=== PATIENT | female | born 1965 | race African-American/Black ===

== ENCOUNTER 2016-12-17 10:45 | Emergency (ER) | payer OTHER ==
[2016-12-17 11:12] VITALS: RESP 18
[2016-12-17] MEDS ORDERED: KETOROLAC 60 MG/2 ML VIAL IM STA (11:19)
[2016-12-17] MEDS ORDERED: ORPHENADRINE 30 MG/ML 2 ML VIAL IM STA (11:19)
--- NOTE | 2016-12-17 11:24 | ED ---
Back Pain HPI - General Chief Complaint: Back Pain/Injury Stated Complaint: LEFT SIDE/BACK PAIN Time Seen by Provider: 12/17/16 11:13 Source: patient, RN notes reviewed Limitations: no limitations - History of Present Illness Initial Comments: 51-year-old female presents to the emergency department with a chief complaint of left-sided flank pain. Patient states she's had this pain to the left side of her back. She states she bends or twists certain ways she has increased pain. Patient states sitting still. She has no pain. Patient denies any pain with urination. Patient denies any abdominal pain any nausea vomiting. Patient states she does lifting at work she does not remember time that she irritated. Patient states it's been about 3 or 4 days. Patient states she was concerned due to the symptoms so she thought that she should be evaluated. Patient denies any recent fever, chills, shortness of breath, chest pain, abdominal pain, nausea vomiting, numbness or tingling, dysuria or hematuria, constipation or diarrhea, headaches or visual changes, or any other current symptoms. - Related Data Home Medications Medication Instructions Recorded Confirmed Lisinopril [Prinivil] 20 mg PO DAILY 12/17/16 12/17/16 Ranitidine HCl [Zantac] 150 mg PO BID 12/17/16 12/17/16 Previous Rx's Medication Instructions Recorded Ibuprofen [Motrin] 600 mg PO Q6HR PRN #20 tab 12/17/16 Orphenadrine [Norflex] 100 mg PO Q12H #10 tablet.er 12/17/16 Allergies Allergy/AdvReac Type Severity Reaction Status Date / Time hydrocodone Allergy Itching Verified 12/17/16 11:29 Review of Systems ROS Statement: Those systems with pertinent positive or pertinent negative responses have been documented in the HPI. ROS Other: All systems not noted in ROS Statement are negative. Past Medical History Past Medical History: GERD/Reflux, Hypertension Additional Past Medical History / Comment(s): ANEMIA, BACK PAIN History of Any Multi-Drug Resistant Organisms: None Reported Past Surgical History: Hysterectomy Past Anesthesia/Blood Transfusion Reactions: No Reported Reaction, Motion Sickness Past Psychological History: No Psychological Hx Reported Smoking Status: Never smoker Past Alcohol Use History: Rare Past Drug Use History: None Reported - Past Family History Mother Family Medical History: No Reported History General Exam - General Exam Comments Initial Comments: General: The patient is awake and alert, in no distress, and does not appear acutely ill. Eye: Pupils are equal, round and reactive to light, extra-ocular movements are intact; there is normal conjunctiva bilaterally. No signs of icterus. Ears, nose, mouth and throat: There are moist mucous membranes. Neck: The neck is supple, there is no tenderness. Cardiovascular: There is a regular rate and rhythm. No murmur, rub or gallop is appreciated. Respiratory: Lungs are clear to auscultation, respirations are non-labored, breath sounds are equal. No wheezes, stridor, rales, or rhonchi. Gastrointestinal: Soft, non-distended, non-tender abdomen without masses or organomegaly noted. There is no rebound or guarding present. No CVA tenderness. Bowel sounds are unremarkable. Back: There is no tenderness to palpation in the midline. There is no obvious deformity. No rashes noted. Patient has pain with side bending and twisting Musculoskeletal: Normal ROM, no tenderness, There is no pedal edema. There is no calf tenderness or swelling. Sensation intact. Pulses equal bilaterally 2+. Neurological: CN II-XII intact, There are no obvious motor or sensory deficits. Coordination appears grossly intact. Speech is normal. Skin: Skin is warm and dry and no rashes or lesions are noted. Psychiatric: Cooperative, appropriate mood & affect, normal judgment. Limitations: no limitations Course Vital Signs 12/17/16 11:10 Temperature 98.0 F Pulse Rate 69 Respiratory 18 Rate Blood Pressure 169/78 O2 Sat by Pulse 99 Oximetry Medical Decision Making - Medical Decision Making 51-year-old female presents to the emergency Department chief complaint of left- sided flank pain that does appear musculoskeletal. This time urinalysis is reviewed and negative. X-ray also shows no acute findings. Stomatitis patient most likely has a lumbar strain. We discussed Motrin Tylenol for pain. We discussed outpatient muscle relaxers. We discussed return parameters all the questions. She stated that she understood and she is very plan. She will be discharged home. - Lab Data Lab Results 12/17/16 Range/Units 11:28 Urine Color Light Yellow Urine Appearance Clear (Clear) Urine pH 5.5 (5.0-8.0) Ur Specific [place] 1.004 (1.001-1.035) Urine Protein Negative (Negative) Urine Glucose (UA) Negative (Negative) Urine Ketones Negative (Negative) Urine Blood Negative (Negative) Urine Nitrite Negative (Negative) Urine Bilirubin Negative (Negative) Urine Urobilinogen <2.0 (<2.0) mg/dL Ur Leukocyte Esterase Negative (Negative) - Radiology Data Radiology results: report reviewed, image reviewed Disposition Clinical Impression: Lumbar strain Disposition: HOME SELF-CARE Condition: Stable Instructions: Lower Back Exercises (ED), Low Back Strain (ED) Additional Instructions: Please use medication as discussed. Please follow up with family doctor if symptoms have not improved over the next two days. Please return to the emergency room if your symptoms increase or worsen or for any other concerns. Prescriptions: Ibuprofen [Motrin] 600 mg PO Q6HR PRN #20 tab PRN Reason: Pain Orphenadrine [Norflex] 100 mg PO Q12H #10 tablet.er Referrals: Elisabet Palmer MD [Primary Care Provider] - 1-2 days Time of Disposition: 12:03
--- NOTE | 2016-12-17 11:56 | XR ---
EXAMINATION TYPE: XR lumbar spine 2 or 3V DATE OF EXAM: 12/17/2016 CLINICAL HISTORY: Back pain for 3 days. TECHNIQUE: Frontal and lateral images of the lumbar spine are obtained. COMPARISON: None FINDINGS: There are 5 lumbar type vertebral bodies identified. The lumbar spine shows straightened alignment without evidence of acute fracture or dislocation. Vertebral body heights and disk space he ights are within normal limits. The overlying soft tissue appears unremarkable. IMPRESSION: No acute fracture or dislocation is seen in the lumbar spine. Unremarkable study.
[2016-12-17 11:58] LABS: Appearance,Urine Clear (Clear); Bilirubin,Urine Negative (Negative); Glucose,Urine (UA) Negative (Negative); Ketones,Urine Negative (Negative); Leukocyte Esterase,Urine Negative (Negative); Nitrite,Urine Negative (Negative); PH, Urine 5.5 (5.0-8.0); Protein,Urine Negative (Negative); Specific Gravity,Urine 1.004 (1.001-1.035); UA Billing (MACRO vs. MICRO) CHEM; Urobilinogen,Urine <2.0 mg/dL (<2.0)
[2016-12-17 12:34] VITALS: BP 165/85; PULSE 65; TEMP 98.2
== END 2016-12-17 12:34 | disposition home or self-care (01) ==
LOC: EC 10:45
DX: S39.012A Strain of muscle, fascia and tendon of lower back, initial encounter (principal); I10 Essential (primary) hypertension; K21.9 Gastro-esophageal reflux disease without esophagitis; Z79.899 Other long term (current) drug therapy; Z88.5 Allergy status to narcotic agent; X50.0XXA Overexertion from strenuous movement or load, initial encounter; Y92.69 Other specified industrial and construction area as the place of occurrence of the external cause; Y99.0 Civilian activity done for income or pay
CPT/HCPCS: 81003; 87086; 72100; 99283; 96372 ×2; J2360; J1885

== ENCOUNTER 2017-02-14 14:32 | Emergency (ER) | payer OTHER ==
[2017-02-14 14:50] VITALS: TEMP 98.1
[2017-02-14] MEDS ORDERED: ACETAMINOPHEN TAB 500 MG TAB PO STA (15:09)
[2017-02-14] MEDS ORDERED: IBUPROFEN 800 MG TAB PO STA (15:09)
--- NOTE | 2017-02-14 15:15 | ED ---
General Adult HPI - General Chief complaint: Dizziness Stated complaint: Dizzy/Poss HBP Time Seen by Provider: 02/14/17 15:04 Source: patient, RN notes reviewed, old records reviewed Mode of arrival: wheelchair Limitations: no limitations - History of Present Illness Initial comments: This is a 51 female to the ED complaining of headache, elevated blood pressure. Patient admits to increased stress, anxiety. Patient's inferior losing her job. She is to stress at work today she took her blood pressure was at the be elevated. She admits to some increased fatigue lately but denies chest pain or shortness of breath. At this time complains of mild headache but headache is similar to headaches that she had in the past usually takes Motrin or Tylenol mainly resolved. Patient was sent here because her blood pressure was elevated in the outpatient basis but states that at this time she has no complaints - Related Data Home Medications Medication Instructions Recorded Confirmed Lisinopril [Prinivil] 20 mg PO DAILY 12/17/16 12/17/16 Ranitidine HCl [Zantac] 150 mg PO BID 12/17/16 12/17/16 Previous Rx's Medication Instructions Recorded Ibuprofen [Motrin] 600 mg PO Q6HR PRN #20 tab 12/17/16 Orphenadrine [Norflex] 100 mg PO Q12H #10 tablet.er 12/17/16 Allergies Allergy/AdvReac Type Severity Reaction Status Date / Time hydrocodone Allergy Itching Verified 02/14/17 14:51 Review of Systems ROS Statement: Those systems with pertinent positive or pertinent negative responses have been documented in the HPI. ROS Other: All systems not noted in ROS Statement are negative. Past Medical History Past Medical History: GERD/Reflux, Hypertension Additional Past Medical History / Comment(s): ANEMIA, BACK PAIN History of Any Multi-Drug Resistant Organisms: None Reported Past Surgical History: Hysterectomy Past Anesthesia/Blood Transfusion Reactions: No Reported Reaction, Motion Sickness Past Psychological History: No Psychological Hx Reported Smoking Status: Never smoker Past Alcohol Use History: Rare Past Drug Use History: None Reported - Past Family History Mother Family Medical History: No Reported History General Exam Limitations: no limitations General appearance: alert, in no apparent distress Head exam: Present: atraumatic, normocephalic, normal inspection Eye exam: Present: normal appearance, PERRL, EOMI. Absent: scleral icterus, conjunctival injection, periorbital swelling ENT exam: Present: normal exam, mucous membranes moist Neck exam: Present: normal inspection. Absent: tenderness, meningismus, lymphadenopathy Respiratory exam: Present: normal lung sounds bilaterally. Absent: respiratory distress, wheezes, rales, rhonchi, stridor Cardiovascular Exam: Present: regular rate, normal rhythm, normal heart sounds. Absent: systolic murmur, diastolic murmur, rubs, gallop, clicks GI/Abdominal exam: Present: soft, normal bowel sounds. Absent: distended, tenderness, guarding, rebound, rigid Extremities exam: Present: normal inspection, full ROM, normal capillary refill. Absent: tenderness, pedal edema, joint swelling, calf tenderness Back exam: Present: normal inspection Neurological exam: Present: alert, oriented X3, CN II-XII intact Psychiatric exam: Present: normal affect, normal mood Skin exam: Present: warm, dry, intact, normal color. Absent: rash Course Vital Signs 02/14/17 14:48 Temperature 98.1 F Pulse Rate 94 Respiratory 18 Rate Blood Pressure 163/79 O2 Sat by Pulse 100 Oximetry - Reevaluation(s) Reevaluation #1: 02/14/17 15:12 blood pressure is normal, patient is feeling well and admits to increase stress and would loke to go home Medical Decision Making - Medical Decision Making 51 female to the ED co HTN, LUA, all symptoms resolved, blood pressure is improved, patient would like to be discharged home. Disposition Clinical Impression: Hypertension, Headache Disposition: HOME SELF-CARE Condition: Good Instructions: Hypertension (ED) Referrals: Elisabet Palmer MD [Primary Care Provider] - 1-2 days
[2017-02-14 15:16] VITALS: BP 133/58; PULSE 89; RESP 16
== END 2017-02-14 15:20 | disposition home or self-care (01) ==
LOC: EC 14:32
DX: I10 Essential (primary) hypertension (principal); R51 Headache; R42 Dizziness and giddiness; F41.9 Anxiety disorder, unspecified; K21.9 Gastro-esophageal reflux disease without esophagitis; Z79.899 Other long term (current) drug therapy; Z88.5 Allergy status to narcotic agent
CPT/HCPCS: 99284

== ENCOUNTER 2017-03-13 20:38 | Emergency (ER) | payer OTHER ==
[2017-03-13] MEDS ORDERED: IBUPROFEN 800 MG TAB PO STA (21:03)
[2017-03-13] MEDS ORDERED: ACETAMINOPHEN TAB 325 MG TAB PO STA (21:03)
[2017-03-13] MEDS ORDERED: LISINOPRIL 10 MG TAB PO STA (21:04)
[2017-03-13 21:15] LABS: HGB 12.5 gm/dL (11.4-16.0); MCH 29.2 pg (25.0-35.0); MCV 88.6 fL (80.0-100.0); Mean Platelet Volume 7.8; RBC 4.28 m/uL (3.80-5.40); RDW 14.3 % (11.5-15.5); WBC 7.2 k/uL (3.8-10.6)
[2017-03-13 21:24] LABS: Anion Gap 12 mmol/L; Blood Urea Nitrogen 15 mg/dL (7-17); Carbon Dioxide 24 mmol/L (22-30); Chloride 103 mmol/L (98-107); Glucose 90 mg/dL (74-99); Non-African American GFR(MDRD) >60 (>60 ml/min/1.73 sqM); Potassium 4.2 mmol/L (3.5-5.1); Sodium 139 mmol/L (137-145)
[2017-03-13 21:36] VITALS: RESP 18
[2017-03-13 22:33] VITALS: BP 178/84; PULSE 89; TEMP 98.1
--- NOTE | 2017-03-13 22:38 | ED ---
General Adult HPI - General Chief complaint: Recheck/Abnormal Lab/Rx Stated complaint: HTN Time Seen by Provider: 03/13/17 20:43 Source: patient Mode of arrival: ambulatory Limitations: no limitations - History of Present Illness Initial comments: Patient is a 51-year-old hypertensive female presents with a chief complaint hypertension. Patient states she took her blood pressure at home and it was 190 /100. Patient also complains of a headache that she's had over a week. When asked what she thinks her headache is from, she replies there is a lot of stress going on. Patient admits to gradual onset and states that she did not have a thunderclap experience. Patient takes 20 mg of lisinopril, and is currently logging her blood pressures daily for follow-up with her primary care which she has an appointment with in 1 week. Patient denies any chest pain or shortness of breath. She denies exertional dyspnea. There are no other complaints at this time. Onset/Timin -: hour(s) - Related Data Home Medications Medication Instructions Recorded Confirmed Lisinopril [Zestril] 5 mg PO DAILY 03/13/17 03/13/17 Allergies Allergy/AdvReac Type Severity Reaction Status Date / Time hydrocodone Allergy Itching Verified 03/13/17 21:11 Review of Systems ROS Statement: Those systems with pertinent positive or pertinent negative responses have been documented in the HPI. ROS Other: All systems not noted in ROS Statement are negative. Constitutional: Denies: fever, chills Eyes: Denies: vision change ENT: Denies: ear pain, throat pain Respiratory: Denies: cough, dyspnea Cardiovascular: Denies: chest pain Endocrine: Denies: fatigue Gastrointestinal: Denies: abdominal pain, nausea, vomiting Genitourinary: Denies: urgency, dysuria Musculoskeletal: Denies: back pain Skin: Denies: rash, lesions Neurological: Denies: headache, weakness Past Medical History Past Medical History: GERD/Reflux, Hypertension Additional Past Medical History / Comment(s): ANEMIA, BACK PAIN History of Any Multi-Drug Resistant Organisms: None Reported Past Surgical History: Hysterectomy Past Anesthesia/Blood Transfusion Reactions: No Reported Reaction, Motion Sickness Past Psychological History: No Psychological Hx Reported Smoking Status: Never smoker Past Alcohol Use History: Rare Past Drug Use History: None Reported - Past Family History Mother Family Medical History: No Reported History General Exam Limitations: no limitations General appearance: alert, in no apparent distress Head exam: Present: atraumatic, normocephalic Eye exam: Present: normal appearance, PERRL ENT exam: Present: normal exam Neck exam: Present: normal inspection Respiratory exam: Present: normal lung sounds bilaterally, respiratory distress Cardiovascular Exam: Present: regular rate, normal rhythm, normal heart sounds GI/Abdominal exam: Present: soft. Absent: distended, tenderness, guarding Rectal exam: Present: deferred Extremities exam: Present: normal inspection Back exam: Present: normal inspection Neurological exam: Present: alert, oriented X3, CN II-XII intact, normal gait. Absent: motor sensory deficit Psychiatric exam: Present: normal affect, normal mood Skin exam: Present: warm, dry, intact Course Vital Signs 03/13/17 03/13/17 03/13/17 20:39 21:01 21:36 Temperature 98.2 F 98.3 F Pulse Rate 86 85 76 Respiratory 20 16 18 Rate Blood Pressure 194/96 185/97 168/104 O2 Sat by Pulse 100 99 98 Oximetry Medical Decision Making - Medical Decision Making Patient presents with a chief complaint of hypertension. She has known hypertensive, takes 20 mg of lisinopril daily. Patient has been watching her blood pressures recently as she is supposed to follow-up with her primary care doctor next week. On initial evaluation, patient's blood pressure is elevated in the 190 systolic range. Patient was given Motrin and Tylenol for headache, and given another dose of lisinopril in the emergency department. On reevaluation, her blood pressures improved to 170, her headache has resolved. At this time, patient is not showing any symptoms of hypertensive emergency or urgency. I will increase her lisinopril to 40 mg daily and have her follow up with primary care. Lab evaluation was performed, electrolytes and kidney function are within normal limits. Blood counts are normal. At this time, patient is agreeable with discharge and follow-up. She is instructed to return to the emergency department if her symptoms worsen or change. - Lab Data Result diagrams: 03/13/17 20:58 03/13/17 20:58 Lab Results 03/13/17 03/13/17 Range/Units 20:58 20:58 WBC 7.2 (3.8-10.6) k/uL RBC 4.28 (3.80-5.40) m/uL Hgb 12.5 (11.4-16.0) gm/dL Hct 38.0 (34.0-46.0) % MCV 88.6 (80.0-100.0) fL MCH 29.2 (25.0-35.0) pg MCHC 33.0 (31.0-37.0) g/dL RDW 14.3 (11.5-15.5) % Plt Count 356 (150-450) k/uL Sodium 139 (137-145) mmol/L Potassium 4.2 (3.5-5.1) mmol/L Chloride 103 (98-107) mmol/L Carbon Dioxide 24 (22-30) mmol/L Anion Gap 12 mmol/L BUN 15 (7-17) mg/dL Creatinine 0.97 (0.52-1.04) mg/dL Est GFR (MDRD) Af Amer >60 (>60 ml/min/1.73 sqM) Est GFR (MDRD) Non-Af >60 (>60 ml/min/1.73 sqM) Glucose 90 (74-99) mg/dL Calcium 10.0 (8.4-10.2) mg/dL Disposition Clinical Impression: Hypertension, Headache Disposition: HOME SELF-CARE Condition: Good Referrals: Elisabet Palmer MD [Primary Care Provider] - 1-2 days
== END 2017-03-13 22:39 | disposition home or self-care (01) ==
LOC: EC 20:38
DX: I10 Essential (primary) hypertension (principal); F43.9 Reaction to severe stress, unspecified; Z79.899 Other long term (current) drug therapy; Z88.5 Allergy status to narcotic agent
CPT/HCPCS: 36415; 80048; 85027; 99283

== ENCOUNTER 2017-05-18 12:37 | Emergency (ER) | payer OTHER ==
[2017-05-18 12:58] VITALS: BP 129/63; PULSE 91; RESP 16; TEMP 99.1
[2017-05-18] MEDS ORDERED: KETOROLAC 30 MG/ML 1 ML VIAL IM STA (13:05)
[2017-05-18] MEDS ORDERED: ORPHENADRINE 30 MG/ML 2 ML VIAL IM STA (13:05)
--- NOTE | 2017-05-18 13:15 | ED ---
Back Pain HPI - General Chief Complaint: Back Pain/Injury Stated Complaint: Back Pain Time Seen by Provider: 05/18/17 12:59 Source: patient, RN notes reviewed Limitations: no limitations - History of Present Illness Initial Comments: This is a 51-year-old female who presents to emergency department with chief complaint of acute on chronic back pain. Patient states that since Thursday she has had left-sided back pain with radiation down left thigh. She describes the pain as sharp and shooting. She believes she is having a flareup of sciatica. Patient denies any new injury or trauma since last seen here in December 2016. She denies numbness or tingling, saddle paresthesias or loss of bladder or bowel function. Patient states pain is made worse with twisting and bending. Denies fever, chills, chest pain, shortness of breath, abdominal pain, nausea or vomiting, constipation or diarrhea, dysuria or hematuria, headache or vision changes. - Related Data Home Medications Medication Instructions Recorded Confirmed Lisinopril [Zestril] 5 mg PO DAILY 03/13/17 03/13/17 Previous Rx's Medication Instructions Recorded Lisinopril [Zestril] 40 mg PO DAILY #30 tablet 03/13/17 Cyclobenzaprine [Flexeril] 10 mg PO TID #12 tab 05/18/17 Ibuprofen [Motrin] 600 mg PO Q6HR PRN #20 tab 05/18/17 Allergies Allergy/AdvReac Type Severity Reaction Status Date / Time hydrocodone Allergy Itching Verified 05/18/17 12:58 Review of Systems ROS Statement: Those systems with pertinent positive or pertinent negative responses have been documented in the HPI. ROS Other: All systems not noted in ROS Statement are negative. Past Medical History Past Medical History: GERD/Reflux, Hypertension Additional Past Medical History / Comment(s): ANEMIA, BACK PAIN History of Any Multi-Drug Resistant Organisms: None Reported Past Surgical History: Hysterectomy Past Anesthesia/Blood Transfusion Reactions: No Reported Reaction, Motion Sickness Past Psychological History: No Psychological Hx Reported Smoking Status: Never smoker Past Alcohol Use History: Rare Past Drug Use History: None Reported - Past Family History Mother Family Medical History: No Reported History General Exam - General Exam Comments Initial Comments: General: Awake and alert, well-developed; in no apparent distress. Pleasant and cooperative female lying on ED stretcher. HEENT: Head atraumatic, normocephalic. Pupils are equal, round and reactive to light. Extraocular movements intact. Oropharynx moist without erythema or exudate. Neck: Supple. Normal ROM. No tenderness. Cardiovascular: Regular rate and rhythm. No murmurs, rubs or gallops. Chest symmetrical. Respiratory: Lungs clear to auscultation bilaterally. No wheezes, rales or rhonchi. Normal respiratory effort with no use of accessory muscles. Abdomen: Soft, non-tender, non-distended. No rigidity, rebound or guarding. Normal bowel sounds in all 4 quadrants. Musculoskeletal: No vertebral bony point or SI joint tenderness. No tenderness on palpation of paraspinous muscles. No noted deformities. Tenderness on palpation of left gluteus. Negative straight leg test. Sensation is intact. Pedal and posterior tibial pulses are 2+ equal and palpable bilaterally. Skin: [place], warm and dry without rashes or lesions. Neurological: Alert and oriented x3. CN II-XII grossly intact. Speech is fluent and answers are appropriate. No focal neuro deficits. Psychiatric: Normal mood and affect. No overt signs of depression or anxiety noted. Limitations: no limitations Course Vital Signs 05/18/17 12:55 Temperature 99.1 F Pulse Rate 91 Respiratory 16 Rate Blood Pressure 129/63 O2 Sat by Pulse 99 Oximetry Medical Decision Making - Medical Decision Making This is a 51-year-old female who presents with chief complaint of acute on chronic back pain. Patient denies any injury or trauma. Lumbar x-ray was not repeated. She denies numbness or tingling, saddle paresthesias or loss of bladder or bowel function. She denies urinary symptoms such as dysuria, frequency or hematuria. She received Toradol and Norflex while in the emergency department. Patient states she is feeling better and is in no acute distress. She'll be discharged home with prescription for Motrin and muscle relaxers. She is advised to follow up with her primary care provider in 1-2 days. Patient is in agreement with the plan and voices understanding. All questions were answered. Disposition Clinical Impression: Lumbar radiculopathy Disposition: HOME SELF-CARE Condition: Good Instructions: Lumbar Radiculopathy (ED), Chronic Back Pain (ED) Additional Instructions: Please take medications as prescribed. Please follow up with primary care provider within 1-2 days. Return to emergency department if symptoms should worsen or any concerns arise. Prescriptions: Cyclobenzaprine [Flexeril] 10 mg PO TID #12 tab Ibuprofen [Motrin] 600 mg PO Q6HR PRN #20 tab PRN Reason: Pain Referrals: Elisabet Palmer MD [Primary Care Provider] - 1-2 days Time of Disposition: 13:35
== END 2017-05-18 13:35 | disposition home or self-care (01) ==
LOC: EC 12:37
DX: M54.16 Radiculopathy, lumbar region (principal); I10 Essential (primary) hypertension; Z79.899 Other long term (current) drug therapy; Z88.5 Allergy status to narcotic agent
CPT/HCPCS: 99283; 96372 ×2; J2360; J1885

== ENCOUNTER 2017-09-09 13:15 | Emergency (ER) | payer OTHER ==
[2017-09-09 13:28] VITALS: RESP 18
[2017-09-09] MEDS ORDERED: KETOROLAC 30 MG/ML 1 ML VIAL IVP STA (14:05)
--- NOTE | 2017-09-09 14:11 | ED ---
Chest Pain HPI - General Chief Complaint: Chest Pain Stated Complaint: chest pain Time Seen by Provider: 09/09/17 13:19 Source: patient, RN notes reviewed Mode of arrival: wheelchair Limitations: no limitations - History of Present Illness Initial Comments: This is a 51-year-old female with a benign history who states she had the onset last night of midsternal chest pain is achy and somewhat heavy in nature 6/10 severity increases with movements and with some deep breathing she's had no fevers chills nausea vomiting sweats cough or other symptoms she does do a lot of lifting and pushing at work. No history of heart or lung disease. MD Complaint: chest pain - Related Data Home Medications Medication Instructions Recorded Confirmed Acetaminophen Tab [Tylenol Tab] 1,000 mg PO Q6HR PRN 09/09/17 09/09/17 Ibuprofen [Advil] 400 mg PO Q8HR PRN 09/09/17 09/09/17 Previous Rx's Medication Instructions Recorded Lisinopril [Zestril] 40 mg PO DAILY #30 tablet 03/13/17 Ibuprofen 800 mg PO Q6HR PRN #20 tablet 09/09/17 Allergies Allergy/AdvReac Type Severity Reaction Status Date / Time hydrocodone Allergy Itching Verified 09/09/17 13:52 Review of Systems ROS Statement: Those systems with pertinent positive or pertinent negative responses have been documented in the HPI. ROS Other: All systems not noted in ROS Statement are negative. EKG Findings - EKG Results: EKG: interpreted by GLADISD, sinus rhythm (Normal sinus rhythm of 84. Interval 154 QRS 84 QT since QTC 388/[address]-T wave changes.) Past Medical History Past Medical History: GERD/Reflux, Hypertension Additional Past Medical History / Comment(s): ANEMIA, BACK PAIN History of Any Multi-Drug Resistant Organisms: None Reported Past Surgical History: Hysterectomy Past Anesthesia/Blood Transfusion Reactions: No Reported Reaction, Motion Sickness Past Psychological History: No Psychological Hx Reported Smoking Status: Never smoker Past Alcohol Use History: Rare Past Drug Use History: None Reported - Past Family History Mother Family Medical History: No Reported History General Exam - General Exam Comments Initial Comments: This is a well developed well-nourished awake alert oriented 3 female Limitations: no limitations General appearance: alert, in no apparent distress Head exam: Present: atraumatic, normocephalic, normal inspection Eye exam: Present: normal appearance, PERRL, EOMI. Absent: scleral icterus, conjunctival injection, periorbital swelling ENT exam: Present: normal exam, mucous membranes moist Neck exam: Present: normal inspection. Absent: tenderness, meningismus, lymphadenopathy Respiratory exam: Present: normal lung sounds bilaterally, chest wall tenderness (Reviews tenderness palpation on the anterior chest wall over the costal sternal costochondral margins). Absent: respiratory distress, wheezes, rales, rhonchi, stridor Cardiovascular Exam: Present: regular rate, normal rhythm, normal heart sounds. Absent: systolic murmur, diastolic murmur, rubs, gallop, clicks GI/Abdominal exam: Present: soft, normal bowel sounds. Absent: distended, tenderness, guarding, rebound, rigid Extremities exam: Present: normal inspection, full ROM, normal capillary refill. Absent: tenderness, pedal edema, joint swelling, calf tenderness Back exam: Present: normal inspection Neurological exam: Present: alert, oriented X3, CN II-XII intact Psychiatric exam: Present: normal affect, normal mood Skin exam: Present: warm, dry, intact, normal color. Absent: rash Course Vital Signs 09/09/17 09/09/17 13:24 14:58 Temperature 98.6 F Pulse Rate 75 68 Respiratory 18 18 Rate Blood Pressure 179/79 169/79 O2 Sat by Pulse 100 100 Oximetry Chest Pain MDM - MDM I did review the imaging and reports no acute findings. Patient is feeling improved she'll be discharged the presentation is consistent with musculoskeletal chest pain/costochondritis. The patient will be placed on appropriate anti-inflammatory she is follow-up with her doctor and return when necessary Disposition Clinical Impression: Costalchondritis, Chest wall syndrome, Dehydration Disposition: HOME SELF-CARE Condition: Good Instructions: Costochondritis (ED), Dehydration (ED) Prescriptions: Ibuprofen 800 mg PO Q6HR PRN #20 tablet PRN Reason: Pain Referrals: Perlita Martinez MD [Primary Care Provider] - 1-2 days
[2017-09-09 14:37] LABS: Basophils % (A) 1 %; Eosinophils # (A) 0.2 k/uL (0-0.7); Eosinophils % (A) 3 %; HCT 35.4 % (34.0-46.0); HGB 11.4 gm/dL (11.4-16.0); Lymphocytes % (A) 40 %; MCH 27.8 pg (25.0-35.0); MCHC 32.3 g/dL (31.0-37.0); MCV 86.1 fL (80.0-100.0); Mean Platelet Volume 7.2; Monocytes # (A) 0.3 k/uL (0-1.0); Monocytes % (A) 5 %; Neutrophils # (A) 2.5 k/uL (1.3-7.7); Neutrophils % (A) 50 %; Platelet Count 319 k/uL (150-450); RBC 4.11 m/uL (3.80-5.40); RDW 13.3 % (11.5-15.5)
[2017-09-09 14:47] LABS: INR 1.1 (<1.2); Prothrombin Time 10.7 sec (9.0-12.0)
[2017-09-09 14:52] LABS: D-Dimer <0.17 mg/L FEU (<0.60)
--- NOTE | 2017-09-09 14:56 | XR ---
EXAMINATION TYPE: XR chest 2V DATE OF EXAM: 09/09/2017 COMPARISON: 04/26/2016 INDICATION: Chest pain TECHNIQUE: Frontal and lateral views of the chest are obtained. FINDINGS: The heart size is normal. The pulmonary vasculature is normal. The lungs are clear. IMPRESSION: 1. No acute pulmonary process.
[2017-09-09 14:57] LABS: Albumin 4.3 g/dL (3.5-5.0); Calcium 9.5 mg/dL (8.4-10.2); Creatine Kinase 172 U/L (30-135); Potassium 4.6 mmol/L (3.5-5.1); Total Bilirubin 0.6 mg/dL (0.2-1.3); Total Protein 5.9 g/dL (6.3-8.2)
[2017-09-09 15:09] LABS: Creatine Kinase MB 0.7 ng/mL (0.0-2.4); Troponin I <0.012 ng/mL (0.000-0.034)
[2017-09-09 15:41] VITALS: BP 154/76; PULSE 73; TEMP 98
== END 2017-09-09 15:50 | disposition home or self-care (01) ==
LOC: EC 13:15
DX: M94.0 Chondrocostal junction syndrome [Tietze] (principal); E86.0 Dehydration; Z88.5 Allergy status to narcotic agent
CPT/HCPCS: 36415; 93005; 85379; 80053; 82150; 82550; 82553; 83690; 83735; 84484; 85025; 85610; 85730; 71046; 99285; 96374; J1885; 99284

== ENCOUNTER → 2018-10-13 | Outpatient (CLI) | payer OTHER ==
--- NOTE | 2018-10-13 13:31 | XR ---
EXAMINATION TYPE: XR thoracic spine 2V DATE OF EXAM: 10/13/2018 CLINICAL HISTORY: Thoracic myofascial strain TECHNIQUE: Frontal, lateral, and swimmer's view of thoracic spine are obtained. COMPARISON: None. FINDINGS: Thoracic spine show satisfactory alignment without evidence of acute fracture or dislocatio n. Vertebral body heights and disc space heights are preserved. Visualized ribs are unremarkable. Minimal degenerative changes are seen of the lower and upper thoracic spine demonstrated as minimal e ndplate sclerosis and intervertebral disc space narrowing. IMPRESSION: No acute fracture or malalignment is seen in the thoracic spine.
--- NOTE | 2018-10-13 13:33 | XR ---
EXAMINATION TYPE: XR lumbosacral spine min 4V DATE OF EXAM: 10/13/2018 CLINICAL HISTORY: Back pain with no known injury TECHNIQUE: Frontal, lateral, and oblique images of the lumbar spine are obtained. COMPARISON: 12/17/2016 FINDINGS: There are 5 lumbar type vertebral bodies identified. The lumbar spine shows satisfactory alignment without evidence of acute fracture or dislocation. Vertebral body heights and disk space he ights are within normal limits. Bowel gas overlies the posterior inferior endplate of the L3 verteb ral body on the cone-down L5-S1 view but does not persist on the larger field of view. Additionally l ucency of the posterior vertebral body at L2 also likely represents overlying bowel gas. Mild facet a rthropathy is seen at L3-L4 with more significant facet arthropathy at L4-5 and L5-S1. Small anterior osteophytes are present at L2-L3, and L3-L4, L4-L5 and L5-S1. The oblique images appear within smiley l limits. The overlying soft tissue appears unremarkable. IMPRESSION: No acute fracture or dislocation is seen in the lumbar spine. Mild multilevel degenerati ve disc disease of the lumbar spine.
--- NOTE | 2018-10-13 14:01 | XR ---
EXAMINATION TYPE: XR cervical spine comp DATE OF EXAM: 10/13/2018 TECHNIQUE: Frontal, lateral, oblique, swimmers, and open mouth view of the cervical spine are obtaine d. HISTORY: M54.42 Bilateral low back pain M54.2 Cervicalgia COMPARISON: None FINDINGS: The cervical spine is visualized in its entirety from C1 thru the top of T1 level. No acut e fracture. The pre-vertebral soft tissue appears within normal limits. The C1-C2 articulation is wi thin normal limits on the open mouth view. There is minimal retrolisthesis of C3 on C4 with posterio r osteophyte at C5-C6 and T4 C5. Anterior osteophytes are seen throughout the cervical spine. Uncover tebral hypertrophy is also present throughout the cervical spine is minimally narrowing the neural fo ramen on the right at C3-C4 and on the left at C5-C6 and C6-C7. Multilevel intervertebral disc space narrowing is present. The oblique images are within normal limits. IMPRESSION: No acute fracture is seen in the cervical spine. Moderate multilevel degenerative disc d isease with multilevel neural foraminal narrowing as described above and slight retrolisthesis of C3 on C4, likely on a degenerative basis.
== END | disposition home or self-care (01) ==
LOC: RADXRMAIN 12:39
PROVIDERS: ATTEND Family Medicine
DX: M48.02 Spinal stenosis, cervical region (principal); M43.12 Spondylolisthesis, cervical region; M50.30 Other cervical disc degeneration, unspecified cervical region; M51.16 Intervertebral disc disorders with radiculopathy, lumbar region; S29.019A Strain of muscle and tendon of unspecified wall of thorax, initial encounter
CPT/HCPCS: 72050; 72070; 72110

== ENCOUNTER → 2019-06-22 | Outpatient (CLI) | payer OTHER ==
--- NOTE | 2019-06-22 10:07 | BD ---
EXAMINATION TYPE: Axial Bone Density DATE OF EXAM: 06/22/2019 COMPARISON: NONE CLINICAL HISTORY: Postmenopausal female. Height: 5 FT 6 IN Weight: 130 FRAX RISK QUESTIONS: Alcohol (3 or more units per day): NO Family History (Parent hip fracture): NO Glucocorticoids (More than 3mos): NO (Ex: prednisone, prednisolone, methylprednisolone, dexamethasone, and hydrocortisone). History of Fracture in Adulthood: NO Secondary Osteoporosis: 1. Type 1 Diabetes: NO 2. Hyperthyroidism: NO 3. Menopause before 45: YES 4. Malnutrition: NO 5. Chronic liver disease: NO Rheumatoid Arthritis: YES Current Tobacco Use: NO RISK FACTORS HISTORY OF: Active: YES Postmenopausal woman: TOTAL HYST AGE 39-40 MEDICATIONS: Additional Medications: LISINOPRIL, TYLENOL, ACID REFLUX MEDS, Additional History: EXAM MEASUREMENTS: Bone mineral densitometry was performed using the [employer]. Bone mineral density as measured about the Lumbar spine is: ----- L1-L4(G/cm2): 1.330 T Score Values are as follows: ----- L2: 0.4 ----- L3: 1.6 ----- L4: 1.4 ----- L1-L4: 1.3 BASELINE Bone mineral density about the R hip (g/cm2): 0.921 Bone mineral density about the L hip (g/cm2): 0.957 T Score values are as follows: -----R Neck: -0.8 -----L Neck: -0.6 -----R Total: -0.2 -----L Total: -0.1 BASELINE IMPRESSION: Normal (Values between +1 and -1 indicate normal bone mass). Consider repeating this study in 5 year s or sooner if there is some new clinical indication. NOTE: T-SCORE=SD OF THE YOUNG ADULT MEAN.
--- NOTE | 2019-06-23 11:49 | MM ---
Reason for exam: screening (asymptomatic). Last mammogram was performed 6 years ago. History: Patient is postmenopausal. Took estrogen for 11 months beginning at age 34. Physical Findings: A clinical breast exam by your physician is recommended on an annual basis and results should be correlated with mammographic findings. MG Screening Mammo w CAD Bilateral CC and MLO view(s) were taken. Prior study comparison: June 14, 2013, bilateral digital screening mammo w/CAD. June 01, 2009, left breast mammogram dig work up. The breast tissue is heterogeneously dense. This may lower the sensitivity of mammography. There is no discrete abnormality. ASSESSMENT: Negative, BI-RAD 1 RECOMMENDATION: Routine screening mammogram of both breasts in 1 year.
== END | disposition home or self-care (01) ==
LOC: RADMAMWWP 09:05
PROVIDERS: ATTEND Family Medicine
DX: Z12.31 Encounter for screening mammogram for malignant neoplasm of breast (principal); Z13.820 Encounter for screening for osteoporosis
CPT/HCPCS: 77067; 77080

== ENCOUNTER 2019-09-15 10:30 | Observation (INO) | payer OTHER ==
[2019-09-15] MEDS ORDERED: ASPIRIN 81 MG PO STA (10:48)
[2019-09-15] MEDS ORDERED: NITROGLYCERIN OINT 1 INCH/GM PACKET TOPICAL STA (10:48)
--- NOTE | 2019-09-15 10:51 | ED ---
General Adult HPI - General Chief complaint: Chest Pain Stated complaint: High BP, chest pain Time Seen by Provider: 09/15/19 10:37 Source: patient, RN notes reviewed Mode of arrival: ambulatory Limitations: no limitations - History of Present Illness Initial comments: Patient is a pleasant 53-year-old female presenting to the emergency department chest discomfort. Onset of symptoms was yesterday. Chest discomfort remains and is mild. Discomfort is described as pressure without radiation. No associated dyspnea, nausea, or diaphoresis. Symptoms do worsen with exertion. No history of similar symptoms previously. Blood pressure this morning was 199/99. - Related Data Home Medications Medication Instructions Recorded Confirmed Acetaminophen Tab [Tylenol Tab] 1,000 mg PO Q6HR PRN 09/09/17 09/09/17 Ibuprofen [Advil] 400 mg PO Q8HR PRN 09/09/17 09/09/17 Previous Rx's Medication Instructions Recorded Lisinopril [Zestril] 40 mg PO DAILY #30 tablet 03/13/17 Ibuprofen 800 mg PO Q6HR PRN #20 tablet 09/09/17 Allergies Allergy/AdvReac Type Severity Reaction Status Date / Time hydrocodone Allergy Itching Verified 09/09/17 13:52 tramadol Allergy Itching Verified 09/15/19 10:35 Review of Systems ROS Statement: Those systems with pertinent positive or pertinent negative responses have been documented in the HPI. ROS Other: All systems not noted in ROS Statement are negative. Constitutional: Denies: fever Eyes: Denies: eye pain ENT: Denies: ear pain Respiratory: Denies: cough, dyspnea Cardiovascular: Reports: as per HPI, chest pain Endocrine: Denies: fatigue Gastrointestinal: Denies: abdominal pain Genitourinary: Denies: dysuria Musculoskeletal: Denies: back pain Skin: Denies: lesions Neurological: Denies: weakness Past Medical History Past Medical History: GERD/Reflux, Hypertension Additional Past Medical History / Comment(s): ANEMIA, BACK PAIN History of Any Multi-Drug Resistant Organisms: None Reported Past Surgical History: Hysterectomy Additional Past Surgical History / Comment(s): neck pain Past Anesthesia/Blood Transfusion Reactions: No Reported Reaction, Motion Sickness Past Psychological History: No Psychological Hx Reported Smoking Status: Never smoker Past Alcohol Use History: Rare Past Drug Use History: None Reported - Past Family History Mother Family Medical History: No Reported History General Exam Limitations: no limitations General appearance: alert, in no apparent distress Head exam: Present: normocephalic Eye exam: Present: normal appearance, PERRL ENT exam: Present: normal oropharynx Neck exam: Present: normal inspection Respiratory exam: Present: normal lung sounds bilaterally. Absent: chest wall tenderness Cardiovascular Exam: Present: regular rate, normal rhythm Expanded Peripheral pulses: 2+: Radial (R), Radial (L), Posterior Tibialis (R), Posterior Tibialis (L), Dorsalis Pedis (R), Dorsalis Pedis (L) GI/Abdominal exam: Present: soft. Absent: tenderness Extremities exam: Present: normal inspection. 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 Mays, who will admit. EKG Findings - EKG Comments: EKG Findings:: Normal sinus rhythm 65. NH 160. QRS 90. QT 412. QTC 428. Normal axis. Normal QRS. No acute ST change. Medical Decision Making - Medical Decision Making Patient reevaluated and resting comfortably in bed. Symptoms have improved however not completely resolved. Patient updated on results and plan. Dr. Mays has been paged for admission, covering for Dr. Maldonado. - Lab Data Result diagrams: 09/15/19 11:18 09/15/19 11:18 Lab Results 09/15/19 09/15/19 09/15/19 Range/Units 11:18 11:18 11:18 WBC 4.7 (3.8-10.6) k/uL RBC 4.22 (3.80-5.40) m/uL Hgb 12.4 (11.4-16.0) gm/dL Hct 38.6 (34.0-46.0) % MCV 91.4 (80.0-100.0) fL MCH 29.2 (25.0-35.0) pg MCHC 32.0 (31.0-37.0) g/dL RDW 13.2 (11.5-15.5) % Plt Count 288 (150-450) k/uL Neutrophils % 61 % Lymphocytes % 30 % Monocytes % 4 % Eosinophils % 3 % Basophils % 0 % Neutrophils # 2.8 (1.3-7.7) k/uL Lymphocytes # 1.4 (1.0-4.8) k/uL Monocytes # 0.2 (0-1.0) k/uL Eosinophils # 0.1 (0-0.7) k/uL Basophils # 0.0 (0-0.2) k/uL PT 10.1 (9.0-12.0) sec INR 1.0 (<1.2) APTT 23.7 (22.0-30.0) sec Sodium 136 L (137-145) mmol/L Potassium 3.6 (3.5-5.1) mmol/L Chloride 106 (98-107) mmol/L Carbon Dioxide 21 L (22-30) mmol/L Anion Gap 9 mmol/L BUN 17 (7-17) mg/dL Creatinine 0.88 (0.52-1.04) mg/dL Est GFR (CKD-EPI)AfAm 87 (>60 ml/min/1.73 sqM) Est GFR (CKD-EPI)NonAf 75 (>60 ml/min/1.73 sqM) Glucose 116 H (74-99) mg/dL Calcium 9.8 (8.4-10.2) mg/dL Magnesium 1.7 (1.6-2.3) mg/dL Total Bilirubin 1.1 (0.2-1.3) mg/dL AST 38 H (14-36) U/L ALT 21 (4-34) U/L Alkaline Phosphatase 59 (38-126) U/L Troponin I (0.000-0.034) ng/mL Total Protein 8.1 (6.3-8.2) g/dL Albumin 4.9 (3.5-5.0) g/dL 09/15/19 Range/Units 11:18 WBC (3.8-10.6) k/uL RBC (3.80-5.40) m/uL Hgb (11.4-16.0) gm/dL Hct (34.0-46.0) % MCV (80.0-100.0) fL MCH (25.0-35.0) pg MCHC (31.0-37.0) g/dL RDW (11.5-15.5) % Plt Count (150-450) k/uL Neutrophils % % Lymphocytes % % Monocytes % % Eosinophils % % Basophils % % Neutrophils # (1.3-7.7) k/uL Lymphocytes # (1.0-4.8) k/uL Monocytes # (0-1.0) k/uL Eosinophils # (0-0.7) k/uL Basophils # (0-0.2) k/uL PT (9.0-12.0) sec INR (<1.2) APTT (22.0-30.0) sec Sodium (137-145) mmol/L Potassium (3.5-5.1) mmol/L Chloride (98-107) mmol/L Carbon Dioxide (22-30) mmol/L Anion Gap mmol/L BUN (7-17) mg/dL Creatinine (0.52-1.04) mg/dL Est GFR (CKD-EPI)AfAm (>60 ml/min/1.73 sqM) Est GFR (CKD-EPI)NonAf (>60 ml/min/1.73 sqM) Glucose (74-99) mg/dL Calcium (8.4-10.2) mg/dL Magnesium (1.6-2.3) mg/dL Total Bilirubin (0.2-1.3) mg/dL AST (14-36) U/L ALT (4-34) U/L Alkaline Phosphatase (38-126) U/L Troponin I <0.012 (0.000-0.034) ng/mL Total Protein (6.3-8.2) g/dL Albumin (3.5-5.0) g/dL - Radiology Data Radiology results: image reviewed (Chest x-ray shows no acute process) Disposition Clinical Impression: Chest pain Disposition: ADMITTED IP TO THIS [facility] Is patient prescribed a controlled substance at d/c from ED?: No Decision Time: 12:13
[2019-09-15 11:34] LABS: Basophils % (A) 0 %; Eosinophils # (A) 0.1 k/uL (0-0.7); Eosinophils % (A) 3 %; HCT 38.6 % (34.0-46.0); HGB 12.4 gm/dL (11.4-16.0); Lymphocytes # (A) 1.4 k/uL (1.0-4.8); Lymphocytes % (A) 30 %; MCH 29.2 pg (25.0-35.0); MCV 91.4 fL (80.0-100.0); Mean Platelet Volume 7.8; Monocytes # (A) 0.2 k/uL (0-1.0); Monocytes % (A) 4 %; Neutrophils # (A) 2.8 k/uL (1.3-7.7); Neutrophils % (A) 61 %; Platelet Count 288 k/uL (150-450); RBC 4.22 m/uL (3.80-5.40); RDW 13.2 % (11.5-15.5); WBC 4.7 k/uL (3.8-10.6)
--- NOTE | 2019-09-15 11:40 | XR ---
EXAMINATION TYPE: XR chest 2V DATE OF EXAM: 09/15/2019 COMPARISON: Chest x-ray September 09, 2017. HISTORY: Chest tightness and pain. TECHNIQUE: Frontal and lateral views of the chest are obtained. FINDINGS: Overlying EKG leads. There is no focal air space opacity, pleural effusion, or pneumothorax seen. Th e cardiac silhouette size is within normal limits. The osseous structures are intact. IMPRESSION: No acute cardiopulmonary process. No significant change from prior.
[2019-09-15 11:49] LABS: Partial Thromboplastin Time 23.7 sec (22.0-30.0); Prothrombin Time 10.1 sec (9.0-12.0)
[2019-09-15 11:51] LABS: Albumin 4.9 g/dL (3.5-5.0); Calcium 9.8 mg/dL (8.4-10.2); Magnesium 1.7 mg/dL (1.6-2.3); Potassium 3.6 mmol/L (3.5-5.1); Total Bilirubin 1.1 mg/dL (0.2-1.3); Total Protein 8.1 g/dL (6.3-8.2)
[2019-09-15] MEDS ORDERED: NITROGLYCERIN SL TABS 0.4 MG TAB SUBLINGUAL PRN (12:13)
[2019-09-15] MEDS ORDERED: LISINOPRIL 10 MG TAB PO STA (12:55)
--- NOTE | 2019-09-15 16:29 | P.HPIM ---
History of Present Illness Patient is a pleasant [age]-year-old female came in with compensative chest pain which started today morning exertional when with when she was lifting something. No radiation midsternal chest pain, no associated shortness of breath l ightheadedness or diaphoresis or chest pain is nonpleuritic, not associated with food. Mild chest pain which resolved with nitro patch. Patient does have a family history of coronary artery disease in her father who when he was in late 60s. Denied any history of smoking denied any history of diabetes or hyperlipidemia. Review of Systems REVIEW OF SYSTEMS: CONSTITUTIONAL: No fever, no malaise, no fatigue. HEENT: No recent visual problems or hearing problems. Denied any sore throat. CARDIOVASCULAR: No orthopnea, PND, no palpitations, no syncope. PULMONARY: No shortness of breath, no cough, no hemoptysis. GASTROINTESTINAL: No diarrhea, no nausea, no vomiting, no abdominal pain. NEUROLOGICAL: No headaches, no weakness, no numbness. HEMATOLOGICAL: Denies any bleeding or petechiae. GENITOURINARY: Denies any burning micturition, frequency, or urgency. MUSCULOSKELETAL/RHEUMATOLOGICAL: Denies any joint pain, swelling, or any muscle pain. ENDOCRINE: Denies any polyuria or polydipsia. The rest of the 14-point review of systems is negative. Past Medical History Past Medical History: GERD/Reflux, Hypertension Additional Past Medical History / Comment(s): ANEMIA, BACK PAIN History of Any Multi-Drug Resistant Organisms: None Reported Past Surgical History: Hysterectomy Additional Past Surgical History / Comment(s): neck pain Past Anesthesia/Blood Transfusion Reactions: No Reported Reaction, Motion Sickness Past Psychological History: No Psychological Hx Reported Smoking Status: Never smoker Past Alcohol Use History: Rare Past Drug Use History: None Reported - Past Family History Mother Family Medical History: No Reported History Medications and Allergies Home Medications Medication Instructions Recorded Confirmed Type Lisinopril [Zestril] 40 mg PO DAILY #30 tablet 03/13/17 09/15/19 Rx Atorvastatin [Lipitor] 20 mg PO DAILY 09/15/19 09/15/19 History Famotidine [Pepcid] 20 mg PO DAILY 09/15/19 09/15/19 History Allergies Allergy/AdvReac Type Severity Reaction Status Date / Time hydrocodone Allergy Itching Verified 09/15/19 12:43 tramadol Allergy Itching Verified 09/15/19 12:43 Physical Exam Vitals: Vital Signs Temp Pulse Pulse Resp BP BP Pulse Ox 09/15/19 16:00 98.3 F 87 18 127/85 100 09/15/19 15:00 98.0 F 87 18 133/88 98 09/15/19 13:00 89 18 154/96 100 09/15/19 12:57 98.0 F 73 18 151/104 99 09/15/19 11:21 71 18 174/97 100 09/15/19 11:10 65 09/15/19 10:32 98.7 F 91 18 182/92 98 Intake and Output 09/15/19 09/15/19 09/15/19 06:59 14:59 22:59 Other: Weight 57.153 kg PHYSICAL EXAMINATION: GENERAL: The patient is alert and oriented x3, not in any acute distress. Well developed, well nourished. HEENT: Pupils are round and equally reacting to light. EOMI. No scleral icterus. No conjunctival pallor. Normocephalic, atraumatic. No pharyngeal erythema. No thyromegaly. CARDIOVASCULAR: S1 and S2 present. No murmurs, rubs, or gallops. PULMONARY: Chest is clear to auscultation, no wheezing or crackles. ABDOMEN: Soft, nontender, nondistended, normoactive bowel sounds. No palpable organomegaly. MUSCULOSKELETAL: No joint swelling or deformity. EXTREMITIES: No cyanosis, clubbing, or pedal edema. NEUROLOGICAL: Gross neurological examination did not reveal any focal deficits. SKIN: No rashes. Results CBC & Chem 7: 09/15/19 11:18 09/15/19 11:18 Labs: Abnormal Lab Results - Last 24 Hours (Table) 09/15/19 Range/Units 11:18 Sodium 136 L (137-145) mmol/L Carbon Dioxide 21 L (22-30) mmol/L Glucose 116 H (74-99) mg/dL AST 38 H (14-36) U/L Assessment and Plan Plan: -Chest pain: We will rule out a concurrent syndromes. Patient doesn't have any elevation of of troponins and EKG shows sinus rhythm without any acute ST-T wave changes. Will obtain 2 more sets of troponins and EKGs. Patient has atypical chest pain although etiology not clear. Cardiology will evaluate the patient she may need a stress test. -Hypertension patient will be resumed on her home medications and monitor blood pressure while she was here -Gastroesophageal reflux disease
[2019-09-15] MEDS ORDERED: ACETAMINOPHEN TAB 325 MG TAB PO STA (16:48)
[2019-09-15] MEDS: NITROGLYCERIN OINT 1 INCH/GM PACKET TOPICAL SCH (18:52)
[2019-09-15] MEDS: PANTOPRAZOLE 40 MG/10 ML VIAL IVP SCH (20:24)
[2019-09-16] MEDS: NITROGLYCERIN OINT 1 INCH/GM PACKET TOPICAL SCH ×2 (02:35→03:43)
[2019-09-16 07:48] VITALS: RESP 18
[2019-09-16 08:16] LABS: Cholesterol 254 mg/dL (<200); Triglycerides 78 mg/dL (<150)
[2019-09-16 08:23] LABS: LDL Cholesterol,Calculated 117 mg/dL (0-99)
[2019-09-16 08:25] LABS: HDL Cholesterol 121 mg/dL (40-60)
[2019-09-16] MEDS: PANTOPRAZOLE 40 MG/10 ML VIAL IVP SCH (08:35)
[2019-09-16] MEDS ORDERED: ASPIRIN 81 MG PO SCH (09:00)
[2019-09-16] MEDS ORDERED: LISINOPRIL 20 MG TAB PO SCH (09:00)
[2019-09-16] MEDS ORDERED: HYDROCHLOROTHIAZIDE 25 MG TAB PO SCH (09:00)
[2019-09-16] MEDS ORDERED: NICOTINE 21MG/24HR PATCH TRANSDERM SCH (09:00)
[2019-09-16] MEDS ORDERED: ASPIRIN 325 MG TAB PO SCH (09:00)
--- NOTE | 2019-09-16 10:23 | P.CRDCN ---
History of Present Illness History of present illness: HISTORY OF PRESENTING ILLNESS This is a pleasant 53-year-old -[place] female past medical history significant for hypertension, dyslipidemia and gastroesophageal reflux disease. He denies prior history of coronary artery disease and does not follow in the office with a manager ct. We have been asked to see in consultation for chest pain. She states for the previous one week she has been experiencing dizzy lightheaded spells associated with headaches. She has been checking her blood pressure regularly at home and has remained elevated in the 180-90 systolic range. She states yesterday while she was at work she was having ongoing headache and lightheadedness and then started experiencing a discomfort in the left precordial region that radiated to the left upper arm. On arrival to the emergency department her blood pressure was 182/92. She had artery taken her daily lisinopril. Repeat this morning was 141/77. DIAGNOSTICS EKG reveals sinus mechanism with no acute ST or T wave abnormalities noted. Chest xray negative for an acute cardiopulmonary process. Laboratory reviewed, CBC unremarkable, sodium 136, potassium 3.6, creatinine 0.88, magnesium 1.7, cardiac enzymes negative 3, LDL 117, HDL 121. Current cardiac medications include atorvastatin 20 mg daily and lisinopril 40 mg daily. REVIEW OF SYSTEMS At the time of my exam: CONSTITUTIONAL: Denies fever or chills. CARDIOVASCULAR: Denies chest pain, shortness of breath, orthopnea, PND or palpitations. RESPIRATORY: Denies cough. GASTROINTESTINAL: Denies abdominal pain, diarrhea, constipation, nausea or vomiting. MUSCULOSKELETAL: Denies myalgias. NEUROLOGIC: Denies numbness, tingling or weakness. ENDOCRINE: Denies fatigue, weight change, polydipsia or polyurina. GENITOURINARY: Denies burning, hematuria or urgency with micturation. HEMATOLOGIC: Denies history of anemia or bleeding. PHYSICAL EXAMINATION Blood pressure 141/77 heart rate 74 afebrile and maintaining oxygen saturation on room air. CONSTITUTIONAL: No apparent distress. HEENT: Head is normocephalic. Pupils are equal, round. Sclerae anicteric. Mucous membranes of the mouth are moist. No JVD. No carotid bruit. CHEST EXAMINATION: Lungs are clear to auscultation. No chest wall tenderness is noted on palpation or with deep breathing. HEART EXAMINATION: Regular rate and rhythm. S1, S2 heard. No murmurs, gallops or rub. ABDOMEN: Soft, nontender. Positive bowel sounds. EXTREMITIES: 2+ peripheral pulses, no lower extremity edema and no calf tenderness. NEUROLOGIC EXAMINATION: Patient is awake, alert and oriented x3. ASSESSMENT Chest pain, atypical for angina. An acute coronary event has been ruled out. Hypertension Dyslipidemia Gastroesophageal reflux disease PLAN An acute coronary event has been ruled out. Obtain 2D echocardiogram and doppler study to assess cardiac structure and function. Perform stress echocargiogram to assess for stress induced ischemia. Continue losartan and add hydrochlorothiazide 25 mg to her daily regimen. Increase atorvastatin to 40 mg daily. If stress test is normal she can be discharged from a cardiac perspective. Follow up with Dr. Benton in 2 weeks. Thank you kindly for this consultation. Nurse Practitioner note has been reviewed, I agree with a documented findings and plan of care. Patient was seen and examined. Past Medical History Past Medical History: GERD/Reflux, Hypertension Additional Past Medical History / Comment(s): ANEMIA, BACK PAIN History of Any Multi-Drug Resistant Organisms: None Reported Past Surgical History: Hysterectomy Additional Past Surgical History / Comment(s): neck pain Past Anesthesia/Blood Transfusion Reactions: No Reported Reaction, Motion Sickness Past Psychological History: No Psychological Hx Reported Smoking Status: Never smoker Past Alcohol Use History: Rare Past Drug Use History: None Reported - Past Family History Mother Family Medical History: No Reported History Medications and Allergies Home Medications Medication Instructions Recorded Confirmed Type Lisinopril [Zestril] 40 mg PO DAILY #30 tablet 03/13/17 09/15/19 Rx Atorvastatin [Lipitor] 20 mg PO DAILY 09/15/19 09/15/19 History Famotidine [Pepcid] 20 mg PO DAILY 09/15/19 09/15/19 History Allergies Allergy/AdvReac Type Severity Reaction Status Date / Time hydrocodone Allergy Itching Verified 09/15/19 12:43 tramadol Allergy Itching Verified 09/15/19 12:43 Physical Exam Vitals: Vital Signs Temp Pulse Pulse Pulse Pulse Resp BP 09/16/19 07:47 98.2 F 74 18 09/16/19 04:00 97.8 F 68 17 09/15/19 23:42 98.2 F 89 17 09/15/19 19:41 98.2 F 81 18 09/15/19 16:00 98.3 F 87 18 09/15/19 15:00 98.0 F 87 18 133/88 09/15/19 13:00 89 18 154/96 09/15/19 12:57 98.0 F 73 18 151/104 09/15/19 11:21 71 18 174/97 09/15/19 11:10 65 09/15/19 10:32 98.7 F 91 18 182/92 BP Pulse Ox 09/16/19 07:47 141/77 99 09/16/19 04:00 154/78 98 09/15/19 23:42 159/76 98 09/15/19 19:41 161/95 99 09/15/19 16:00 127/85 100 09/15/19 15:00 98 09/15/19 13:00 100 09/15/19 12:57 99 09/15/19 11:21 100 09/15/19 11:10 09/15/19 10:32 98 Intake and Output 09/15/19 09/16/19 09/16/19 22:59 06:59 14:59 Other: Voiding Method Toilet Toilet # Voids 2 Weight 57.153 kg 58.2 kg Results 09/15/19 11:18 09/15/19 11:18 Cardiac Enzymes 09/15/19 09/15/19 09/15/19 Range/Units 11:18 11:18 17:08 AST 38 H (14-36) U/L Troponin I <0.012 <0.012 (0.000-0.034) ng/mL 09/15/19 Range/Units 23:04 AST (14-36) U/L Troponin I <0.012 (0.000-0.034) ng/mL Coagulation 09/15/19 Range/Units 11:18 PT 10.1 (9.0-12.0) sec APTT 23.7 (22.0-30.0) sec CBC 09/15/19 Range/Units 11:18 WBC 4.7 (3.8-10.6) k/uL RBC 4.22 (3.80-5.40) m/uL Hgb 12.4 (11.4-16.0) gm/dL Hct 38.6 (34.0-46.0) % Plt Count 288 (150-450) k/uL Comprehensive Metabolic Panel 09/15/19 Range/Units 11:18 Sodium 136 L (137-145) mmol/L Potassium 3.6 (3.5-5.1) mmol/L Chloride 106 (98-107) mmol/L Carbon Dioxide 21 L (22-30) mmol/L BUN 17 (7-17) mg/dL Creatinine 0.88 (0.52-1.04) mg/dL Glucose 116 H (74-99) mg/dL Calcium 9.8 (8.4-10.2) mg/dL AST 38 H (14-36) U/L ALT 21 (4-34) U/L Alkaline Phosphatase 59 (38-126) U/L Total Protein 8.1 (6.3-8.2) g/dL Albumin 4.9 (3.5-5.0) g/dL Current Medications Generic Name Dose Route Start Last Admin Trade Name Freq PRN Reason Stop Dose Admin Aspirin 81 mg 09/16/19 09:00 Aspirin PO DAILY [facility] Lisinopril 40 mg 09/16/19 09:00 Zestril PO DAILY [facility] Nitroglycerin 0.4 mg 09/15/19 12:13 Nitrostat SUBLINGUAL Q5M PRN Chest Pain Pantoprazole Sodium 40 mg 09/15/19 21:00 09/15/19 20:24 Protonix IVP 40 mg BID AJAY Administration Sodium Chloride 10 ml 09/15/19 21:00 09/15/19 20:24 Saline Flush IV 10 ml BID AJAY Administration Intake and Output 09/15/19 09/16/19 09/16/19 22:59 06:59 14:59 Other: Voiding Method Toilet Toilet # Voids 2 Weight 57.153 kg 58.2 kg 09/15/19 11:18 09/15/19 11:18
[2019-09-16] MEDS ORDERED: ATORVASTATIN 40 MG TAB PO SCH (10:30)
--- NOTE | 2019-09-16 10:34 | ECHOF ---
Referral Reason:cp MEASUREMENTS -------- HEIGHT: 165.1 cm WEIGHT: 58.1 kg BP: 141/77 RVIDd: 2.7 cm (< 3.3) IVSd: 1.4 cm (0.6 - 1.1) LVIDd: 3.5 cm (3.9 - 5.3) LVPWd: 1.4 cm (0.6 - 1.1) IVSs: 1.7 cm LVIDs: 2.8 cm LVPWs: 1.6 cm LA Diam: 3.0 cm (2.7 - 3.8) LAESV Index (A-L): 29.25 ml/m Ao Diam: 2.9 cm (2.0 - 3.7) AV Cusp: 1.9 cm (1.5 - 2.6) MV EXCURSION: 14.382 mm (> 18.000) MV EF SLOPE: 113 mm/s (70 - 150) EPSS: 0.6 cm MV E Viral: 0.67 m/s MV DecT: 312 ms MV A Viral: 0.58 m/s MV E/A Ratio: 1.17 RAP: 5.00 mmHg RVSP: 18.53 mmHg FINDINGS -------- Sinus rhythm. This was a technically excellent study. The left ventricular size is normal. There is moderate concentric left ventricular hypertrophy. O verall left ventricular systolic function is normal with, an EF between 60 - 65 %. The right ventricle is normal in size. LA is midly dilated 29-33ml/m2. The right atrium is normal in size. Interatrial and interventricular septum intact. The aortic valve is trileaflet and appears structurally normal. Trace to mild aortic regurgitation. There is trace mitral regurgitation. Trace tricuspid regurgitation present. Right ventricular systolic pressure is normal at < 35 mmHg. There is no pulmonic regurgitation present. The aortic root size is normal. Normal inferior vena cava with normal inspiratory collapse consistent with estimated right atrial pre ssure of 5 mmHg. There is no pericardial effusion. CONCLUSIONS -------- 1. Sinus rhythm. 2. This was a technically excellent study. 3. The left ventricular size is normal. 4. There is moderate concentric left ventricular hypertrophy. 5. Overall left ventricular systolic function is normal with, an EF between 60 - 65 %. 6. The right ventricle is normal in size. 7. LA is midly dilated 29-33ml/m2. 8. The right atrium is normal in size. 9. Interatrial and interventricular septum intact. 10. The aortic valve is trileaflet and appears structurally normal. 11. Trace to mild aortic regurgitation. 12. There is trace mitral regurgitation. 13. Trace tricuspid regurgitation present. 14. Right ventricular systolic pressure is normal at < 35 mmHg. 15. There is no pulmonic regurgitation present. 16. The aortic root size is normal. 17. Normal inferior vena cava with normal inspiratory collapse consistent with estimated right atrial pressure of 5 mmHg. 18. There is no pericardial effusion. [employer]: Adelaide Moon RDCS
[2019-09-16 11:23] VITALS: BP 137/83; PULSE 83; TEMP 97.8
--- NOTE | 2019-09-16 11:57 | ECHOS ---
STRESS ECHOCARDIOGRAM INDICATIONS: Chest pain. MEDICATIONS: Lisinopril, atorvastatin. BASELINE HEART RATE: 68 BASELINE BLOOD PRESSURE: 159/90 MAXIMUM HEART RATE: 167 MAXIMUM BLOOD PRESSURE: 219/87 85% MPHR: 141 100% MPHR: 166 METS: 10 MAXIMUM STAGE REACHED: III TOTAL EXERCISE TIME: 9 minutes CLINICAL INFORMATION: Baseline EKG showed sinus rhythm, normal axis, normal intervals. Patient exercised on Rigo protocol for a total of 9 minutes achieving 10 METs 100% of predicted maximal heart rate without chest pain or diagnostic ST-segment depression. Baseline echo shows normal left ventricular size, wall motion and systolic function. Postexercise. There is normal hyperdynamic response of all segments of myocardium noted. MMODL / IJN: [id number] /
[2019-09-16 12:59] VITALS: BMI 21.3
--- NOTE | 2019-09-16 15:08 | P.DS ---
Providers Date of admission: 09/15/19 12:13 Attending physician: Jayda aMys Consults: 09/15/19 12:13 Consult Physician Urgent Consulting Provider: Manan Benton Consult Reason/Comments: cp Do you want consulting provider notified?: Yes Primary care physician: Perlita Martinez [facility] Course: Patient is admitted for chest pain rule out a concurrent syndromes after the patient underwent stress test stress test is negative patient is being discharged patient blood pressure is bit elevated because of which her core mounter recommending hydrochlorothiazide and patient will be discharged on this medication. PHYSICAL EXAMINATION: GENERAL: The patient is alert and oriented x3, not in any acute distress. Well developed, well nourished. HEENT: Pupils are round and equally reacting to light. EOMI. No scleral icterus. No conjunctival pallor. Normocephalic, atraumatic. No pharyngeal erythema. No thyromegaly. CARDIOVASCULAR: S1 and S2 present. No murmurs, rubs, or gallops. PULMONARY: Chest is clear to auscultation, no wheezing or crackles. ABDOMEN: Soft, nontender, nondistended, normoactive bowel sounds. No palpable organomegaly. MUSCULOSKELETAL: No joint swelling or deformity. EXTREMITIES: No cyanosis, clubbing, or pedal edema. NEUROLOGICAL: Gross neurological examination did not reveal any focal deficits. SKIN: No rashes. Plan - Discharge Summary Discharge Rx Participant: No New Discharge Prescriptions: New Hydrochlorothiazide [Hydrodiuril] 25 mg PO DAILY #30 tab Continue Lisinopril [Zestril] 40 mg PO DAILY #30 tablet Famotidine [Pepcid] 20 mg PO DAILY Atorvastatin [Lipitor] 20 mg PO DAILY Discharge Medication List Lisinopril [Zestril] 40 mg PO DAILY #30 tablet 03/13/17 [Rx] Atorvastatin [Lipitor] 20 mg PO DAILY 09/15/19 [History] Famotidine [Pepcid] 20 mg PO DAILY 09/15/19 [History] Hydrochlorothiazide [Hydrodiuril] 25 mg PO DAILY #30 tab 09/16/19 [Rx] Follow up Appointment(s)/Referral(s): Perlita Martinez MD [Primary Care Provider] - 3 Days Manan Benton MD [STAFF PHYSICIAN] - 2 Weeks Discharge Disposition: HOME SELF-CARE
== END 2019-09-16 15:13 | disposition home or self-care (01) ==
LOC: EC 10:30 → 1SOBS 12:13
PROVIDERS: ADMIT Internal Medicine; ATTEND Internal Medicine
DX: R07.9 Chest pain, unspecified (principal); I10 Essential (primary) hypertension; E78.5 Hyperlipidemia, unspecified; K21.9 Gastro-esophageal reflux disease without esophagitis; M54.9 Dorsalgia, unspecified; D64.9 Anemia, unspecified; Z90.710 Acquired absence of both cervix and uterus; M54.2 Cervicalgia; Z79.899 Other long term (current) drug therapy; Z79.1 Long term (current) use of non-steroidal anti-inflammatories (NSAID); Z88.5 Allergy status to narcotic agent; Z82.49 Family history of ischemic heart disease and other diseases of the circulatory system
CPT/HCPCS: 93005 ×2; 96374; 96376; 99285; 36415; 93306; 93351; 80061; 80053; 83735; 84484; 85025; 85610; 85730; 71046; G0378 ×2; C9113 ×2

== ENCOUNTER → 2019-11-10 | Outpatient (CLI) | payer OTHER ==
--- NOTE | 2019-11-10 15:14 | US ---
EXAMINATION TYPE: US carotid duplex BILAT DATE OF EXAM: 11/10/2019 COMPARISON: NONE CLINICAL HISTORY: Z87.898 Personal history of other specified condit. Patient passed out EXAM MEASUREMENTS: RIGHT: Peak Systolic Velocity (PSV) cm/sec ----- Right CCA: 78.8 ----- Right ICA: 69.3 ----- Right ECA: 60.5 ICA/CCA ratio: 0.9 RIGHT: End Diastole cm/sec ----- Right CCA: 21.7 ----- Right ICA: 17.0 ----- Right ECA: 10.2 LEFT: Peak Systolic Velocity (PSV) cm/sec ----- Left CCA: 101 ----- Left ICA: 95.8 ----- Left ECA: 84.9 ICA/CCA ratio: 0.9 LEFT: End Diastole cm/sec ----- Left CCA: 23.8 ----- Left ICA: 42.8 ----- Left ECA: 16.3 VERTEBRALS (direction of flow): Right Vertebral: Antegrade Left Vertebral: Antegrade Rhythm: Normal Mild amount of plaque visualized, no elevated velocities, no significant stenosis. IMPRESSION: Mild degree of grayscale atheromatous plaquing with no sonographically evident hemodynam ically significant stenosis within either visualized carotid arterial system. Criteria for Assigning % of Stenosis / Diameter reduction (Estimation based on the indirect measurements of the internal carotid artery velocities (ICA PSV). 1. Normal (no stenosis)=ICA PSV < 125 cm/s: ratio < 2.0: ICA EDV<40 cm/s. 2. Less than 50% stenosis=ICA PSV < 125 cm/s: ratio < 2.0: ICA EDV<40 cm/s. 3. 50 to 69% stenosis=ICA PSV of 125 to 230 cm/s: ration 2.0 ? 4.0: ICA EDV 40-100 cm/s. 4. Greater than 70% stenosis to near occlusion= ICA PSV > 230 cm/s: ratio > 4.0: ICA EDV > 100 cm/s. 5. Near occlusion= ICA PSV velocities may be low or undetectable: variable ratio and ICA EDV. 6. Total occlusion=unable to detect flow.
--- NOTE | 2019-11-10 15:37 | CT ---
EXAMINATION TYPE: CT brain wo con DATE OF EXAM: 11/10/2019 COMPARISON: NONE HISTORY: Syncopal episodes on and off x [address] DLP: 1054.2 mGycm. Automated Exposure Control for Dose Reduction was Utilized. TECHNIQUE: CT scan of the head is performed without contrast. FINDINGS: There is no acute intracranial hemorrhage, mass effect, or midline shift identified. The ventricles and sulci are within normal limits in size. The globes are intact and the visualized sin uses are clear other than mild mucosal thickening in the ethmoid sinuses. Cerumen is noted in the jamin ateral external auditory canals. IMPRESSION: No acute intracranial hemorrhage, mass effect, or midline shift is seen. MRI brain could be considered for increased sensitivity of white matter disease.
== END | disposition home or self-care (01) ==
LOC: RADUSMAIN 13:52
PROVIDERS: ATTEND Family Medicine
DX: Z09 Encounter for follow-up examination after completed treatment for conditions other than malignant neoplasm (principal); I67.2 Cerebral atherosclerosis; Z87.898 Personal history of other specified conditions
CPT/HCPCS: 70450; 93880

== ENCOUNTER 2020-07-20 10:25 | Emergency (ER) | payer OTHER ==
[2020-07-20 10:31] VITALS: TEMP 98.6
[2020-07-20] MEDS ORDERED: ORPHENADRINE 30 MG/ML 2 ML VIAL IVP STA (11:03)
[2020-07-20] MEDS ORDERED: KETOROLAC 15 MG/ML 1 ML VIAL IVP STA (11:03)
--- NOTE | 2020-07-20 11:08 | ED ---
General Adult HPI - General Chief complaint: Recheck/Abnormal Lab/Rx Stated complaint: High BP Time Seen by Provider: 07/20/20 10:33 Source: patient, RN notes reviewed Mode of arrival: ambulatory Limitations: no limitations - History of Present Illness Initial comments: This a 54-year-old female presents emergency Department with chief complaint of left leg pain. Patient states she's had pain for last 1 week. Patient states that it feels different than her normal chronic back pain. She denies any bowel, bladder incontinence or retention. Denies any saddle anesthesias. She has no dysuria no hematuria no abdominal pain. Patient states it is worse with movement. She states it is cramping in her leg denies swelling discoloration. Patient states that because his leg pain she decided to check her blood pressure she also had a headache states the headache has come and gone but states it has returned today. Patient states blood pressure is elevated so this is what brought her to the emergency department. Patient denies chest pain shortness breath focal weakness no other complaints. - Related Data Home Medications Medication Instructions Recorded Confirmed Famotidine [Pepcid] 20 mg PO DAILY 09/15/19 07/20/20 Ibuprofen [Advil] 400 mg PO Q6H PRN 07/20/20 07/20/20 Previous Rx's Medication Instructions Recorded lisinopriL [Zestril] 40 mg PO DAILY #30 tablet 03/13/17 Cyclobenzaprine [Flexeril] 10 mg PO TID PRN #15 tab 07/20/20 Ibuprofen [Motrin] 600 mg PO Q8HR PRN #20 tab 07/20/20 Allergies Allergy/AdvReac Type Severity Reaction Status Date / Time hydrocodone Allergy Itching Verified 07/20/20 10:56 tramadol Allergy Itching Verified 07/20/20 10:56 Review of Systems ROS Statement: Those systems with pertinent positive or pertinent negative responses have been documented in the HPI. ROS Other: All systems not noted in ROS Statement are negative. Past Medical History Past Medical History: GERD/Reflux, Hypertension Additional Past Medical History / Comment(s): ANEMIA, BACK PAIN History of Any Multi-Drug Resistant Organisms: None Reported Past Surgical History: Hysterectomy Additional Past Surgical History / Comment(s): neck pain Past Anesthesia/Blood Transfusion Reactions: No Reported Reaction, Motion Sickness Past Psychological History: No Psychological Hx Reported Smoking Status: Never smoker Past Alcohol Use History: Rare Past Drug Use History: None Reported - Past Family History Mother Family Medical History: No Reported History General Exam Limitations: no limitations General appearance: alert, in no apparent distress Head exam: Present: atraumatic, normocephalic, normal inspection Eye exam: Present: normal appearance, PERRL, EOMI. Absent: scleral icterus, conjunctival injection, periorbital swelling ENT exam: Present: normal exam, normal oropharynx, mucous membranes moist Neck exam: Present: normal inspection, full ROM. Absent: tenderness, meningismus, lymphadenopathy Respiratory exam: Present: normal lung sounds bilaterally. Absent: respiratory distress, wheezes, rales, rhonchi, stridor Cardiovascular Exam: Present: regular rate, normal rhythm, normal heart sounds. Absent: systolic murmur, diastolic murmur, rubs, gallop, clicks GI/Abdominal exam: Present: soft, normal bowel sounds. Absent: distended, tenderness, guarding, rebound, rigid Extremities exam: Present: other (Left leg neurovascular intact there is some calf tenderness and posterior thigh tenderness no discoloration equal clinical warmth pulses are equal bilaterally) Back exam: Present: full ROM. Absent: tenderness, paraspinal tenderness, vertebral tenderness Neurological exam: Present: alert, oriented X3, CN II-XII intact, reflexes normal, other (Aztefc-vp-heoa intact bilaterally). Absent: motor sensory deficit Skin exam: Present: warm, dry, intact, normal color. Absent: rash Course Vital Signs 07/20/20 07/20/20 10:27 10:45 Temperature 98.6 F Pulse Rate 84 Respiratory 18 Rate Blood Pressure 160/83 150/97 O2 Sat by Pulse 100 Oximetry Medical Decision Making - Medical Decision Making Ultrasound was negative for acute DVT. Patient labwork unremarkable. Blood pressures within normal limits. Patient will follow-up with her PCP for blood pressure recheck. Patient's leg pain is related to lumbar radiculopathy. Patient has no red flag symptoms. Patient is ambulatory and will be discharged in stable condition. - Lab Data Result diagrams: 07/20/20 11:11 07/20/20 11:11 Lab Results 07/20/20 07/20/20 Range/Units 11:11 11:11 WBC 5.8 (3.8-10.6) k/uL RBC 4.09 (3.80-5.40) m/uL Hgb 11.8 (11.4-16.0) gm/dL Hct 37.3 (34.0-46.0) % MCV 91.2 (80.0-100.0) fL MCH 28.8 (25.0-35.0) pg MCHC 31.6 (31.0-37.0) g/dL RDW 13.1 (11.5-15.5) % Plt Count 328 (150-450) k/uL MPV 7.5 Neutrophils % 70 % Lymphocytes % 23 % Monocytes % 3 % Eosinophils % 3 % Basophils % 1 % Neutrophils # 4.1 (1.3-7.7) k/uL Lymphocytes # 1.3 (1.0-4.8) k/uL Monocytes # 0.2 (0-1.0) k/uL Eosinophils # 0.2 (0-0.7) k/uL Basophils # 0.0 (0-0.2) k/uL Sodium 139 (137-145) mmol/L Potassium 4.2 (3.5-5.1) mmol/L Chloride 107 (98-107) mmol/L Carbon Dioxide 26 (22-30) mmol/L Anion Gap 6 mmol/L BUN 14 (7-17) mg/dL Creatinine 0.78 (0.52-1.04) mg/dL Est GFR (CKD-EPI)AfAm >90 (>60 ml/min/1.73 sqM) Est GFR (CKD-EPI)NonAf 86 (>60 ml/min/1.73 sqM) Glucose 96 (74-99) mg/dL Calcium 9.5 (8.4-10.2) mg/dL Total Bilirubin 0.7 (0.2-1.3) mg/dL AST 30 (14-36) U/L ALT 19 (4-34) U/L Alkaline Phosphatase 50 (38-126) U/L Total Protein 7.3 (6.3-8.2) g/dL Albumin 4.3 (3.5-5.0) g/dL Disposition Clinical Impression: Lumbar radiculopathy, acute, Hypertension Disposition: HOME SELF-CARE Condition: Stable Instructions (If sedation given, give patient instructions): Hypertension (ED) Additional Instructions: Please return to the Emergency Department if symptoms worsen or any other concerns. Prescriptions: Cyclobenzaprine [Flexeril] 10 mg PO TID PRN #15 tab PRN Reason: Muscle Spasm Ibuprofen [Motrin] 600 mg PO Q8HR PRN #20 tab PRN Reason: Pain Is patient prescribed a controlled substance at d/c from ED?: No Referrals: Perlita Martinez MD [Primary Care Provider] - 1-2 days Time of Disposition: 12:06
[2020-07-20 11:23] LABS: Basophils % (A) 1 %; Eosinophils # (A) 0.2 k/uL (0-0.7); Eosinophils % (A) 3 %; HCT 37.3 % (34.0-46.0); HGB 11.8 gm/dL (11.4-16.0); Lymphocytes # (A) 1.3 k/uL (1.0-4.8); Lymphocytes % (A) 23 %; MCH 28.8 pg (25.0-35.0); MCHC 31.6 g/dL (31.0-37.0); MCV 91.2 fL (80.0-100.0); Mean Platelet Volume 7.5; Monocytes # (A) 0.2 k/uL (0-1.0); Monocytes % (A) 3 %; Neutrophils # (A) 4.1 k/uL (1.3-7.7); Neutrophils % (A) 70 %; Platelet Count 328 k/uL (150-450); RBC 4.09 m/uL (3.80-5.40); RDW 13.1 % (11.5-15.5); WBC 5.8 k/uL (3.8-10.6)
[2020-07-20 11:37] LABS: ALT 19 U/L (4-34); AST 30 U/L (14-36); African American GFR (CKD) >90 (>60 ml/min/1.73 sqM); Albumin 4.3 g/dL (3.5-5.0); Alkaline Phosphatase 50 U/L (38-126); Anion Gap 6 mmol/L; Blood Urea Nitrogen 14 mg/dL (7-17); Calcium 9.5 mg/dL (8.4-10.2); Carbon Dioxide 26 mmol/L (22-30); Chloride 107 mmol/L (98-107); Glucose 96 mg/dL (74-99); Non-African American GFR(CKD) 86 (>60 ml/min/1.73 sqM); Potassium 4.2 mmol/L (3.5-5.1); Sodium 139 mmol/L (137-145); Total Bilirubin 0.7 mg/dL (0.2-1.3); Total Protein 7.3 g/dL (6.3-8.2)
--- NOTE | 2020-07-20 11:47 | US ---
EXAMINATION TYPE: US venous doppler duplex LE LT DATE OF EXAM: 07/20/2020 11:06 AM COMPARISON: NONE CLINICAL HISTORY: 54-year-old female with left leg pain SIDE PERFORMED: Left TECHNIQUE: The lower extremity deep venous system is examined utilizing real time linear array sonog cooper with graded compression, doppler sonography and color-flow sonography. FINDINGS: VESSELS IMAGED: Common Femoral Vein Deep Femoral Vein Greater Saphenous Vein * Femoral Vein Popliteal Vein Small Saphenous Vein * Proximal Calf Veins (* superficial vessels) Left Leg: Negative for DVT IMPRESSION: No evidence for DVT within the left lower extremity imaged from the groin to the upper calf.
[2020-07-20] MEDS ORDERED: ACET/COD 300 MG/30 MG STARTER PACK 6 TAB BTL PO STA (12:05)
[2020-07-20 12:26] VITALS: BP 154/89; PULSE 70; RESP 16
== END 2020-07-20 12:33 | disposition home or self-care (01) ==
LOC: EC 10:25
DX: M54.16 Radiculopathy, lumbar region (principal); I10 Essential (primary) hypertension; K21.9 Gastro-esophageal reflux disease without esophagitis; Z79.899 Other long term (current) drug therapy; Z88.5 Allergy status to narcotic agent; Z88.6 Allergy status to analgesic agent; Z90.49 Acquired absence of other specified parts of digestive tract
CPT/HCPCS: 36415; 80053; 85025; 93971; 99284; 96374; 96375; J2360; J1885

== ENCOUNTER → 2020-11-02 | Outpatient (CLI) | payer OTHER | END | disposition home or self-care (01) | LOC: LABWHC1 15:35 | PROVIDERS: ATTEND Family Medicine | DX: Z20.822 Contact with and (suspected) exposure to COVID-19 (principal) | CPT/HCPCS: U0003; C9803; U0005 ==

== ENCOUNTER 2021-08-05 13:28 | Emergency (ER) | payer OTHER ==
[2021-08-05 13:37] VITALS: BP 132/76; PULSE 95
[2021-08-05 13:38] VITALS: RESP 16; TEMP 98.9
[2021-08-05] MEDS ORDERED: IBUPROFEN 400 MG TAB PO STA (13:44)
--- NOTE | 2021-08-05 13:51 | ED ---
General Adult HPI - General Chief complaint: Extremity Injury, Lower Stated complaint: Fall/Rt foot injury Time Seen by Provider: 08/05/21 13:40 Source: patient, RN notes reviewed Mode of arrival: wheelchair Limitations: no limitations - History of Present Illness Initial comments: Well-appearing 55-year-old female presents to the emergency room with complaints of right ankle pain. Patient states she rolled her ankle on a step going into the laundromat 3 days ago and has had increased swelling and pain. She is able to ambulate on it. No other injury. -: days(s) (3) Location: right, lower extremity (ankle) Severity scale (1-10): 5 Quality: aching, constant Consistency: constant Improves with: none Worsens with: none Associated Symptoms: denies other symptoms Treatments Prior to Arrival: none - Related Data Home Medications Medication Instructions Recorded Confirmed Famotidine [Pepcid] 20 mg PO DAILY 09/15/19 07/20/20 Ibuprofen [Advil] 400 mg PO Q6H PRN 07/20/20 07/20/20 Previous Rx's Medication Instructions Recorded lisinopriL [Zestril] 40 mg PO DAILY #30 tablet 03/13/17 Cyclobenzaprine [Flexeril] 10 mg PO TID PRN #15 tab 07/20/20 Ibuprofen [Motrin] 600 mg PO Q8HR PRN #20 tab 07/20/20 Ibuprofen [Motrin] 600 mg PO Q8HR PRN #30 tab 08/05/21 Allergies Allergy/AdvReac Type Severity Reaction Status Date / Time hydrocodone Allergy Itching Verified 08/05/21 13:36 tramadol Allergy Itching Verified 08/05/21 13:36 Review of Systems ROS Statement: Those systems with pertinent positive or pertinent negative responses have been documented in the HPI. ROS Other: All systems not noted in ROS Statement are negative. Past Medical History Past Medical History: GERD/Reflux, Hypertension Additional Past Medical History / Comment(s): ANEMIA, BACK PAIN History of Any Multi-Drug Resistant Organisms: None Reported Past Surgical History: Hysterectomy Additional Past Surgical History / Comment(s): neck pain Past Anesthesia/Blood Transfusion Reactions: No Reported Reaction, Motion Sickness Past Psychological History: No Psychological Hx Reported Smoking Status: Never smoker Past Alcohol Use History: Rare Past Drug Use History: None Reported - Past Family History Mother Family Medical History: No Reported History General Exam Limitations: no limitations General appearance: alert, in no apparent distress Head exam: Present: atraumatic, normocephalic, normal inspection Eye exam: Present: normal appearance. Absent: scleral icterus, conjunctival injection ENT exam: Present: normal exam, normal oropharynx, mucous membranes moist Respiratory exam: Present: normal lung sounds bilaterally. Absent: respiratory distress, wheezes, rales, rhonchi, stridor Cardiovascular Exam: Present: regular rate, normal rhythm, normal heart sounds. Absent: systolic murmur, diastolic murmur, rubs, gallop, clicks, JVD Right Ankle exam: Present: full ROM, tenderness, swelling. Absent: abrasion, laceration, crepitus, erythema Foot/Toe exam: Present: normal inspection. Absent: ecchymosis Neurovascular tendon exam: Present: no vascular compromise. Absent: abnormal cap refill, extremity cold to touch, pallor, foot drop Neurological exam: Present: alert, oriented X3 Psychiatric exam: Present: normal affect, normal mood Skin exam: Present: warm, dry, intact, normal color. Absent: rash Course Vital Signs 08/05/21 13:36 Temperature 98.9 F Pulse Rate 95 Respiratory 16 Rate Blood Pressure 132/76 O2 Sat by Pulse 99 Oximetry Procedures - Orthopedic Splinting/Casting Injury #1 Side: right Lower Extremity Injury Location: short leg, foot Lower Extremity Immobilizer: synthetic pre-padded splint Other Orthopedic Equipment: crutches Medical Decision Making - Medical Decision Making 55-year-old female presents with complaints of right ankle pain after rolling it 3 days ago on a step. She is able to ambulate on it denies any lower leg or calf pain. X-ray of the right foot and ankle shows a minimally displaced proximal fifth metatarsal fracture. Avulsion fractures or chip fractures about the ankle questionable in age. Patient was placed in a short leg splint and given crutches, directed to follow up with orthopedics this week. Patient was neurovascularly intact prior to and post splinting. Rest ice and elevate. Prescription for Motrin was given. Case discussed with Dr. Dixon. Disposition Clinical Impression: Metatarsal fracture Disposition: HOME SELF-CARE Condition: Good Instructions (If sedation given, give patient instructions): Foot Fracture in Adults (ED) Additional Instructions: Rest, ice, elevate and use crutches. Wear the splint until seen by orthopedics. Call orthopedics as referred for an appointment within the next 3-5 days. Return to the emergency room if any new or worsening symptoms. Prescriptions: Ibuprofen [Motrin] 600 mg PO Q8HR PRN #30 tab PRN Reason: Pain Is patient prescribed a controlled substance at d/c from ED?: No Referrals: Perlita Martinez MD [Primary Care Provider] - 1-2 days Carlos Bello MD [Medical Doctor] - 1-2 days Time of Disposition: 15:06
--- NOTE | 2021-08-05 14:51 | XR ---
Right foot and right ankle HISTORY: Trauma Saturday, pain 3 views of the right foot and 3 views of the right ankle There is soft tissue swelling present laterally right foot. Degenerative changes, hypertrophic change at the intertarsal joints, tarsometatarsal joints, mild hallux valgus deformity, there is degenerati ve change at the first metatarsophalangeal joint. There is a minimally displaced proximal fifth metat arsal fracture. Crescentic lucency is present at the level of the medial malleolus which is displaced and is well-corticated, similar-appearing ossific density present laterally at the distal fibula, qu estionable age. IMPRESSION: Proximal fifth metatarsal fracture. Avulsion fractures or chip fractures about the ankle of questionable age.
== END 2021-08-05 16:09 | disposition home or self-care (01) ==
LOC: EC 13:28
DX: S92.351A Displaced fracture of fifth metatarsal bone, right foot, initial encounter for closed fracture (principal); I10 Essential (primary) hypertension; K21.9 Gastro-esophageal reflux disease without esophagitis; Z79.1 Long term (current) use of non-steroidal anti-inflammatories (NSAID); Z79.899 Other long term (current) drug therapy; X50.1XXA Overexertion from prolonged static or awkward postures, initial encounter
CPT/HCPCS: 99283

== ENCOUNTER 2021-08-30 08:01 | Emergency (ER) | payer OTHER ==
[2021-08-30 08:04] VITALS: TEMP 98.3
[2021-08-30] MEDS ORDERED: ASPIRIN 81 MG PO STA (08:30)
--- NOTE | 2021-08-30 08:40 | ED ---
Chest Pain HPI - General Chief Complaint: Chest Pain Stated Complaint: Chest Pain Time Seen by Provider: 08/30/21 08:18 Source: patient Mode of arrival: wheelchair Limitations: no limitations - History of Present Illness Initial Comments: This is a pleasant 55-year-old female with a history of hypertension. She presents with sided chest wall pain which she is describing is tight. Patient states is been present for about 3 days. Constant, no alleviating or exacerbating factors. It radiates to the upper left arm. Radiates to the left shoulder blade region. Patient states her father has a history of cardiac disease. Patient has no cardiac history herself. She did have a negative cardiac stress test a few years ago. Nonsmoker, no alcohol or drug abuse. Patient also complaining of some pain to the area of the left popliteal space. However she is also any walking boot for a foot fracture her right foot which she sustained in late July. No proximal symptomology in the right leg. There is no edema. Patient denies shortness of breath. No headache, no fever or chills, no changes in vision or hearing, no sore throat or difficulty with speech, no neck pain,no shortness of breath, no abdominal pain, no nausea or vomiting, no changes in urination or bowel movements, no numbness or tingling, , no skin rashes or lesions. - Related Data Home Medications Medication Instructions Recorded Confirmed Famotidine [Pepcid] 20 mg PO HS 09/15/19 08/30/21 hydroCHLOROthiazide 25 mg PO DAILY 08/30/21 08/30/21 Previous Rx's Medication Instructions Recorded lisinopriL [Zestril] 40 mg PO DAILY #30 tablet 03/13/17 Dexamethasone 6 mg PO DAILY #5 tablet 08/30/21 Allergies Allergy/AdvReac Type Severity Reaction Status Date / Time hydrocodone Allergy Itching Verified 08/30/21 10:19 tramadol Allergy Itching Verified 08/30/21 10:19 Review of Systems ROS Statement: Those systems with pertinent positive or pertinent negative responses have been documented in the HPI. ROS Other: All systems not noted in ROS Statement are negative. EKG Findings - EKG Results: EKG: interpreted by ERMD (Normal intervals, rate 90), sinus rhythm, normal axis, normal QRS, normal ST/T, no acute changes, not changed from: (Previous EKG) Past Medical History Past Medical History: GERD/Reflux, Hypertension Additional Past Medical History / Comment(s): ANEMIA, BACK PAIN History of Any Multi-Drug Resistant Organisms: None Reported Past Surgical History: Hysterectomy Additional Past Surgical History / Comment(s): neck pain Past Anesthesia/Blood Transfusion Reactions: No Reported Reaction, Motion Sickness Past Psychological History: No Psychological Hx Reported Smoking Status: Never smoker Past Alcohol Use History: Rare Past Drug Use History: None Reported - Past Family History Mother Family Medical History: No Reported History General Exam Limitations: no limitations General appearance: alert, in no apparent distress Head exam: Present: atraumatic, normocephalic, normal inspection Eye exam: Present: normal appearance, PERRL, EOMI. Absent: scleral icterus, conjunctival injection, periorbital swelling ENT exam: Present: normal exam, normal oropharynx, mucous membranes moist Neck exam: Present: normal inspection, full ROM. Absent: tenderness, meningismus, lymphadenopathy Respiratory exam: Present: normal lung sounds bilaterally, chest wall tenderness. Absent: respiratory distress, wheezes, rales, rhonchi, stridor, accessory muscle use, decreased breath sounds, prolonged expiratory Cardiovascular Exam: Present: regular rate, normal rhythm, normal heart sounds. Absent: systolic murmur, diastolic murmur, rubs, gallop, clicks GI/Abdominal exam: Present: soft, normal bowel sounds. Absent: distended, tenderness, guarding, rebound, rigid Extremities exam: Present: normal inspection, full ROM, normal capillary refill. Absent: tenderness, pedal edema, joint swelling, calf tenderness Left Shoulder Exam: Present: normal inspection, full ROM. Absent: tenderness, swelling, abrasion, erythema Upper Arm exam: Present: normal inspection, tenderness. Absent: swelling, abrasion, laceration, ecchymosis, deformity, erythema Elbow exam: Present: normal inspection, full ROM. Absent: tenderness, erythema Neuro motor exam: Present: wrist extension intact, thumb opposition intact, thumb IP flexion intact, thumb adduction intact, fingers 2-5 abduction intact Neurosensory exam: Present: radial nerve intact, ulnar nerve intact, median nerve intact Vascular: Present: normal capillary refill. Absent: vascular compromise, Pallo, pulse deficit radial art, pulse deficit ulnar art, pulse deficit brachial art Left Upper Leg exam: Present: normal inspection. Absent: tenderness, swelling, erythema Knee exam: Present: normal inspection, full ROM, tenderness. Absent: swelling, abrasion, laceration Lower Leg exam: Present: normal inspection, full ROM, tenderness. Absent: swelling, abrasion, dislocation (Mild tenderness in the left popliteal space as well as the proximal calf area. Negative Homans sign, no palpable cord, no rash or lesion, no erythema. No evidence of vascular or infectious insult.), erythema, palpable cord, Homans' sign Ankle exam: Present: normal inspection, full ROM. Absent: tenderness Foot/Toe exam: Present: normal inspection, full ROM. Absent: tenderness Neurovascular tendon exam: Present: no vascular compromise. Absent: pulse deficit, abnormal cap refill, motor deficit, sensory deficit, tendon deficit, extremity cold to touch, pallor, foot drop, peroneal nerve deficit Gait: antalgic (Patient wearing a walking boot on the right foot from a nondisplaced foot fracture she sustained in late July.) Back exam: Present: normal inspection Neurological exam: Present: alert, oriented X3, CN II-XII intact Psychiatric exam: Present: normal affect, normal mood Skin exam: Present: warm, dry, intact, normal color. Absent: rash Course Vital Signs 08/30/21 08/30/21 08:02 10:14 Temperature 98.3 F Pulse Rate 106 H 76 Respiratory 18 20 Rate Blood Pressure 138/47 107/74 O2 Sat by Pulse 99 98 Oximetry - Reevaluation(s) Reevaluation #1: 08/30/21 09:54 Medical record is reviewed Symptoms are essentially unchanged, patient stable, elevated d-dimer. Patient is informed of results and questions answered Patient in no distress Reevaluation #2: 08/30/21 11:27 Medical record is reviewed Symptoms are improved here in the emergency department Patient is informed of results and questions answered Patient in no distress, patient stable for discharge. Chest Pain MDM - MDM Patient presents with reproducible left chest wall pain which radiates to the left arm. Positive family history of heart disease in her father who started having heart problems and 50s. Patient also has a history of hypertension. Given the patient's presentation, musculoskeletal pain is likely. However she is tachycardic and dannie perc criteria. We'll order a d-dimer and cardiac workup. Plan for observation. Aspirin 324 mg ordered. Patient's COVID-19 testing was positive. Patient was stable. CT showed no evidence upon her embolism. Spurious changes were noted including a 3.2 cm ascending aorta. We'll have the patient follow-up with her regular physician. Patient does not meet criteria for monoclonal antibody. We'll treat with 5 days of dexamethasone. Acetaminophen. Return if all parameters discussed. All questions answered. Patient concurs with this treatment plan. The case was discussed in detail with ED attending physician. Presentation, findings, treatment plan discussed in detail. Patient was told to return to the ER for any signs or symptoms worsen. Told to return immediately if any other problems arise. All questions answered. Treatment plan discussed. Patient in agreement Every effort has been made to ensure accuracy of this dictation. However, due to the limitations of electronic medical records and dictation devices, errors in charting still occur. Disposition Clinical Impression: COVID-19, Anterior chest wall pain, Myalgia Disposition: HOME SELF-CARE Condition: Good Instructions (If sedation given, give patient instructions): Chest Pain (ED), COVID-19 (Coronavirus Disease 2019) (ED) Additional Instructions: SELF QUARANTINE DISCHARGE: As you are at risk for symptoms due to coronavirus, please stay home and stay away from others as much as possible. Please maintain social distance of 6 feet if possible. You should not return to work until at least 3 days (72 hours) have passed since recovery of symptoms. This defined as resolution of fever without the use of fever reducing medicines and improvement in respiratory symptoms (e.g,, cough, shortness of breath) Isolation can end at least 5 days after symptom onset and after fever ends for 24 hours (without the use of fever-reducing medication) and symptoms are improving, if these people can continue to properly wear a well-fitted mask around others for 5 more days after the 5-day isolation period. If you're still having symptoms at the end of 5 day period, isolate for an additional 5 days. More information about what to do if you are sick can be found on the CDC website at https://www.cdc.gov/coronavirus/2019-ncov/cb-oqp-atr-sick/agkkt-fkcw-ykzo.html Expect the symptoms to last for 7-14 days from onset. Use acetaminophen (Tylenol) as needed for discomfort. You can take a maximum of 1 gram every 6 hours for discomfort, with your total dose in 24 hours not exceeding 4 grams. Be sure to maintain hydration. Drink continuous water and/or items high in vitamin C, such as orange juice and/or lemonade. Unless you have high blood pressure, you may consider Sudafed (which is [id number]) for nasal congestion. I would suggest that a short acting Sudafed rather than the 24 hour Sudafed. For a cough you may take Mucinex or Robitussin. Also consider the use of Jaylan s Vapor Rub or your chest when you sleep. Use a humidifier that is cleaned frequently, in the bedroom at night. For Nausea /Vomiting/Diarrhea associated with your Illness: o Small frequent sips of room temperature liquids. o Diet: [employer] - If you are still experiencing discomfort and/or nausea please slowly advancing your diet using the BRAT Diet = bananas, rice, apples/apple sauce, toast. o With diarrhea avoid any dairy for 48 hours after symptoms resolved. o Continue with activity as tolerated. If your symptoms do get worse and you believe that the upper respiratory infection has developed into something else, such as pneumonia or severe dehydration, please return to the emergency department or follow-up with your primary care. But expect to be symptomatic for the days as indicated above Is patient prescribed a controlled substance at d/c from ED?: No Referrals: Perlita Martinez MD [Primary Care Provider] - 09/02/21 Time of Disposition: 11:29
[2021-08-30 08:51] LABS: Basophils % (A) 1 %; Eosinophils # (A) 0.1 k/uL (0-0.7); Eosinophils % (A) 2 %; HCT 36.5 % (34.0-46.0); HGB 12.1 gm/dL (11.4-16.0); Lymphocytes % (A) 37 %; MCH 30.2 pg (25.0-35.0); MCHC 33.1 g/dL (31.0-37.0); MCV 91.3 fL (80.0-100.0); Mean Platelet Volume 8.4; Monocytes # (A) 0.3 k/uL (0-1.0); Monocytes % (A) 5 %; Neutrophils # (A) 2.9 k/uL (1.3-7.7); Neutrophils % (A) 54 %; Platelet Count 278 k/uL (150-450); RDW 13.4 % (11.5-15.5); WBC 5.4 k/uL (3.8-10.6)
--- NOTE | 2021-08-30 09:06 | XR ---
EXAMINATION TYPE: XR chest 1V portable DATE OF EXAM: 08/30/2021 HISTORY: Shortness of breath. COMPARISON: 09/15/2019 TECHNIQUE: Single view of the chest is submitted. FINDINGS: Demonstrated are scattered senescent parenchymal change. There is no evidence for focal infiltrate. The heart is stable. Hilar and mediastinal structures are within normal limits. Degenerative changes are seen of the dorsal spine. IMPRESSION: 1. Chronic changes without evidence for acute pulmonary disease.
[2021-08-30 09:07] LABS: Albumin 4.4 g/dL (3.5-5.0); Calcium 9.9 mg/dL (8.4-10.2); Magnesium 1.8 mg/dL (1.6-2.3); Potassium 4.2 mmol/L (3.5-5.1); Total Bilirubin 0.8 mg/dL (0.2-1.3); Total Protein 7.4 g/dL (6.3-8.2)
--- NOTE | 2021-08-30 10:07 | US ---
EXAMINATION TYPE: US venous doppler duplex LE LT DATE OF EXAM: 08/30/2021 8:31 AM COMPARISON: CLINICAL HISTORY: Left leg pain. No swelling. Not on blood thinners. SIDE PERFORMED: Left TECHNIQUE: The lower extremity deep venous system is examined utilizing real time linear array sonog cooper with graded compression, doppler sonography and color-flow sonography. VESSELS IMAGED: Common Femoral Vein Deep Femoral Vein Greater Saphenous Vein * Femoral Vein Popliteal Vein Small Saphenous Vein * Proximal Calf Veins (* superficial vessels) Left Leg: Negative for DVT IMPRESSION: No evidence for DVT at this time.
[2021-08-30] MEDS ORDERED: ACETAMINOPHEN TAB 500 MG TAB PO STA (10:41)
--- NOTE | 2021-08-30 10:45 | CT ---
EXAMINATION TYPE: CT angio chest DATE OF EXAM: 08/30/2021 COMPARISON: No previous CT scan is available for comparison HISTORY: Left sided chest tightness. Lightheaded. Tachycardia. CT DLP: 207.3 mGy.cm. Automated Exposure Control for Dose Reduction was Utilized. TECHNIQUE AND CONTRAST: CTA scan of the thorax is performed with IV Contrast, patient injected with 100 mL of Isovue 370, as per pulmonary angiogram protocol. MIP Images are created on CT scanner and reviewed. FINDINGS: Slightly artifactual images. No definite filling defect within the pulmonary trunk, main pulmonary ar teries, lobar, segmental and proximal subsegmental branches to suggest pulmonary embolism. Distal sub segmental branches are difficult to assess. The pulmonary trunk measures 3.2 cm which may suggest pulmonary hypertension. The ascending aorta daniel sures 3.2 cm. No gross cardiomegaly. Bovine aortic arch. No pathologically enlarged lymph nodes in th e chest. Minimal left lower lobe posterior pleural-based atelectasis. Unremarkable lungs otherwise. No pleural effusion or pericardial effusion. Patent central airways. Slightly thickened left adrenal. No aggres sive bone lesion. IMPRESSION: No major or central pulmonary embolism. No definite acute abnormality seen in the chest. Incidental f indings as described above.
[2021-08-30] MEDS ORDERED: dexAMETHasone 2 MG TAB PO STA (11:29)
[2021-08-30 11:42] VITALS: BP 126/77; PULSE 92; RESP 18
== END 2021-08-30 11:52 | disposition home or self-care (01) ==
LOC: EC 08:01
DX: R07.89 Other chest pain (principal); U07.1 COVID-19; M79.18 Myalgia, other site; I10 Essential (primary) hypertension; Z72.89 Other problems related to lifestyle
CPT/HCPCS: 36415; 93005; 85379; 83880; 80053; 83735; 84484; 85025; 87635; 71045; 93971; 71275; 99285; J8540; Q9967

== ENCOUNTER 2021-10-23 12:32 | Day surgery (SDC) | payer OTHER ==
[2021-10-21 14:41] VITALS: BMI 22.3
[~2021-10-23 12:32] MED LIST: DEXAMETHASONE SOD PHOSPHATE 4 MG/ML 1 ML VIAL IV ONE; HYDROmorphone 0.5 MG/0.5 ML SYRINGE IVP PRN; LACTATED RINGERS 1,000 ML IV SCH; ONDANSETRON 4 MG/2 ML VIAL IVP ONE
[2021-10-23] MEDS ORDERED: ONDANSETRON 4 MG/2 ML VIAL ONE (13:23)
[2021-10-23] MEDS ORDERED: MIDAZOLAM 2 MG/2 ML VIAL ONE (14:12)
[2021-10-23] MEDS ORDERED: LIDOCAINE 1% INJ 10MG/ML (20 ML MDV) ONE (14:12)
[2021-10-23] MEDS ORDERED: fentaNYL (PF) 50 MCG/ML 2 ML AMP ONE (14:12)
[2021-10-23] MEDS ORDERED: PROPOFOL 10 MG/ML 20 ML VIAL IV ONE (14:12)
[2021-10-23] MEDS ORDERED: BUPIVACAINE (PF) 0.25% 30 ML VIAL SQ ONE (14:37)
--- NOTE | 2021-10-23 15:00 | P.OP ---
Date of Procedure: 10/23/21 Preoperative Diagnosis: Displaced fifth metatarsal base fracture left foot Postoperative Diagnosis: Same Procedure(s) Performed: Percutaneous reduction and fixation fifth metatarsal fracture left foot Implants: Arthrex 3.5 mm only threaded headless screw Anesthesia: ZURDO Surgeon: Adama Randolph Estimated Blood Loss (ml): 2 Pathology: none sent Condition: stable Disposition: PACU Description of Procedure: The patient was brought into the operative room placed on table supine position. Timeout was taken to confirm correct patient identifiers, correct site of surgery, and correct procedure. Once the room was in agreement with the timeout, anesthesia induced the patient and placed her under general anesthesia. A tourniquet was then placed on the left ankle and then 20 mL of 0.25% Marcaine was injected as a posterior tibial nerve block as well as a lateral midfoot block. The left foot was then prepped and draped in the usual manner. Real- time fluoroscopy was used to locate the fracture. Reduction clamp was used to grasp the fracture fragment and secured to the fifth metatarsal body. We were able to reduce the fracture. At that point was decided to do the surgery without a tourniquet. Therefore threaded guidewire was placed in the fracture fragment under fluoroscopic visualization. And with the fracture held in reduction the wire was advanced across the fracture and into the fifth metatarsal base. Fluoroscopy showed proper placement of the wire and reduction of the fracture. A small stab incision was made around the wire and soft tissue was bluntly dissected along the course of the wire to the fifth metatarsal. Drilling was completed over the wire and then a 3.5 mm fully threaded headless Arthrex screw was placed over the guidewire and then advanced until the far cortex was reached and the threads on the head of the screw engaged the fracture fragment and compressed. Fluoroscopic imaging showed proper placement of the screw. The guidewire was removed and the wounds irrigated with normal saline. A single nylon stitch was used to close the entry point for the screw. Nonadherent gauze was placed over the incisions and then a dry sterile dressing applied left foot. The patient was then placed in a below-knee fracture boot with ankle neutral position. Anesthesia was reversed and the patient was taken recovery with vital signs stable.
[2021-10-23 15:11] VITALS: TEMP 97.1
[2021-10-23 15:41] VITALS: RESP 18
[2021-10-23] MEDS ORDERED: Acetaminophen-Codeine 300-30mg TAB ONE (15:43)
[2021-10-23] MEDS ORDERED: Acetaminophen-Codeine 300-30mg TAB PO ONE (15:49)
[2021-10-23 16:11] VITALS: BP 147/78; PULSE 78
== END 2021-10-23 16:32 | disposition home or self-care (01) ==
LOC: OR 12:32
PROVIDERS: ATTEND Podiatrist
DX: S92.352A Displaced fracture of fifth metatarsal bone, left foot, initial encounter for closed fracture (principal); W50.0XXA Accidental hit or strike by another person, initial encounter; I10 Essential (primary) hypertension; E78.5 Hyperlipidemia, unspecified; K21.9 Gastro-esophageal reflux disease without esophagitis; Z79.899 Other long term (current) drug therapy; Z88.5 Allergy status to narcotic agent; Z90.710 Acquired absence of both cervix and uterus; Z83.3 Family history of diabetes mellitus; Z82.49 Family history of ischemic heart disease and other diseases of the circulatory system
CPT/HCPCS: 28476; C1713; J2250; J1100; J0690; J2405; J2001; J3010; J2704

== ENCOUNTER → 2022-07-24 | Outpatient (CLI) | payer OTHER ==
--- NOTE | 2022-07-25 07:01 | US ---
EXAMINATION TYPE: US pelvic limited DATE OF EXAM: 07/24/2022 COMPARISON: NONE CLINICAL HISTORY: R10.2 PELVIC PAIN. Generalized pelvic pain. Complete hysterectomy- uterus and both ovaries removed TECHNIQUE: Transabdominal (TA). Transabdominal sonographic images of the pelvis were acquired. Date of LMP: Unknown EXAM MEASUREMENTS: 1. Uterus: Surgically absent 2. Endometrium: Surgically absent 3. Right Ovary: Surgically absent 4. Left Ovary: Surgically absent 5. Bilateral Adnexa: no free fluid or prominent masses visualized at time of scan. 6. Posterior cul-de-sac: no free fluid IMPRESSION: Postsurgical changes from total hysterectomy with bilateral salpingo-oophorectomy. No free fluid or m ass identified. No ultrasound abnormality for patient's symptomology.
== END | disposition home or self-care (01) ==
LOC: RADUSWWP 15:24
PROVIDERS: ATTEND Family Medicine
DX: Z01.419 Encounter for gynecological examination (general) (routine) without abnormal findings (principal); R10.2 Pelvic and perineal pain; Z90.710 Acquired absence of both cervix and uterus; Z90.722 Acquired absence of ovaries, bilateral
CPT/HCPCS: 76857

== ENCOUNTER → 2022-07-25 | Outpatient (CLI) | payer OTHER ==
--- NOTE | 2022-07-28 08:05 | BD ---
EXAMINATION TYPE: Axial Bone Density DATE OF EXAM: 07/25/2022 COMPARISON: 06/22/2019 CLINICAL HISTORY: 56 years year old Female. ICD-10 CODE: [id number], [id number], [id number] Height: 64.5 Weight: 123.1 FRAX RISK QUESTIONS: Alcohol (3 or more units per day): YES Family History (Parent hip fracture): NO Glucocorticoids (More than 3mos): NO History of Fracture in Adulthood: BILAT FEET, Secondary Osteoporosis: 1. Type 1 Diabetes: NO 2. Hyperthyroidism: NO 3. Menopause before 45: YES 4. Malnutrition: NO 5. Chronic liver disease: NO Rheumatoid Arthritis: NO Current Tobacco Use: NO RISK FACTORS HISTORY OF: Hip Fracture (Right/Left): NO When: Spine Fracture: NO When: History of Wrist Fracture: NO When: Surgery to Spine/Hip(right/left)/Wrist (right/left): NO When: Family History of Osteoporosis: NO Active: YES Diet low in dairy products/other sources of calcium: YES Postmenopausal woman: YES Take estrogen and/or progesterone medications: NO Lost more than 2 inches in height since high school: NO Frequent falls: NO Poor Health: NO Hyperparathyroidism: NO Adrenal Insufficiency: NO MEDICATIONS: Prednisone or other steroids: NO Thyroid Medications: NO Osteoporosis Medications: NO Additional Medications: VIT D, REFLUX MEDS, BP MEDS, CHOLESTEROL MEDS, IRON, TUMERIC EXAM MEASUREMENTS: Bone mineral densitometry was performed using the Huoli System. Bone mineral density as measured about the Lumbar spine is: ----- L1-L4(G/cm2): 1.344 T Score Values are as follows: ----- L1: 1.3 ----- L2: 0.6 ----- L3: 1.9 ----- L4: 1.5 ----- L1-L4: 0.9 Bone mineral density has: DECREASED -1.6 % since study of: 06/22/2019 Bone mineral density about the R hip (g/cm2): 0.886 Bone mineral density about the L hip (g/cm2): 0.927 T Score values are as follows: -----R Neck: -1.1 -----L Neck: -0.8 -----R Total: -0.3 -----L Total: -0.2 Bone mineral density has: DECREASED -1.1 % since study of: 06/22/2019 FRAX%s: The graph provided illustrates a 4.7% chance for a major osteoporotic fx and a 0.3% chance fo r the hips probability for fx in 10 years time. IMPRESSION: Osteopenia (T Score between -2.5 and -1). There is slightly increased risk of fracture and the patient may be considered for treatment. Re-Screen 2-5 years. NOTE: T-SCORE=SD OF THE YOUNG ADULT MEAN.
--- NOTE | 2022-07-28 09:04 | MM ---
Reason for Exam: Screening (asymptomatic). Last mammogram was performed 3 year(s) and 1 month(s) ago. Patient History: Menarche at age 12. First Full-Term at age 22. Left ovary removed at age 34. Right ovary removed at age 34. Hysterectomy at age 34. Postmenopausal. Estrogen for 11 months from age 34 until age 35. Risk Values: Rosalina 5 year model risk: 1.1%. NCI Lifetime model risk: 7.1%. Prior Study Comparison: 06/01/2009 Left Diagnostic Mammogram, [facility]. 06/14/2013 Bilateral Screening Mammogram, [facility]. 06/22/2019 Bilateral Screening Mammogram, [facility]. Tissue Density: The breast tissue is heterogeneously dense. This may lower the sensitivity of mammography. Findings: Analyzed By CAD. There is no suspicious group of microcalcifications or new suspicious mass in either breast. Overall Assessment: Negative, BI-RAD 1 Management: Screening Mammogram of both breasts in 1 year. A clinical breast exam by your physician is recommended on an annual basis and results should be correlated with mammographic findings. Electronically signed and approved by: Dontae Ma D.O.
== END | disposition home or self-care (01) ==
LOC: RADBDWWP 15:24
PROVIDERS: ATTEND Family Medicine
DX: Z12.31 Encounter for screening mammogram for malignant neoplasm of breast (principal); Z13.820 Encounter for screening for osteoporosis; M85.851 Other specified disorders of bone density and structure, right thigh; S92.902A Unspecified fracture of left foot, initial encounter for closed fracture; M79.672 Pain in left foot; Z78.0 Asymptomatic menopausal state; Z79.52 Long term (current) use of systemic steroids
CPT/HCPCS: 77063; 77067; 77080

== ENCOUNTER 2023-02-15 13:00 | Emergency (ER) | payer OTHER ==
[2023-02-15 13:19] VITALS: RESP 16
[2023-02-15 14:12] LABS: Basophils # (A) 0.1 k/uL (0-0.2); Basophils % (A) 0 %; Eosinophils # (A) 0.6 k/uL (0-0.7); Eosinophils % (A) 3 %; HCT 31.2 % (34.0-46.0); HGB 10.1 gm/dL (11.4-16.0); Lymphocytes # (A) 1.5 k/uL (1.0-4.8); Lymphocytes % (A) 8 %; MCH 29.3 pg (25.0-35.0); MCHC 32.4 g/dL (31.0-37.0); MCV 90.6 fL (80.0-100.0); Mean Platelet Volume 7.6; Monocytes # (A) 0.5 k/uL (0-1.0); Monocytes % (A) 3 %; Neutrophils # (A) 14.8 k/uL (1.3-7.7); Neutrophils % (A) 85 %; Platelet Count 607 k/uL (150-450); RBC 3.45 m/uL (3.80-5.40); RDW 14.4 % (11.5-15.5); WBC 17.5 k/uL (3.8-10.6)
[2023-02-15 14:28] LABS: ALT 42 U/L (4-34); AST 38 U/L (14-36); African American GFR (CKD) >90 (>60 ml/min/1.73 sqM); Albumin 3.2 g/dL (3.5-5.0); Alkaline Phosphatase 223 U/L (38-126); Anion Gap 9 mmol/L; Blood Urea Nitrogen 7 mg/dL (7-17); Carbon Dioxide 28 mmol/L (22-30); Chloride 101 mmol/L (98-107); Glucose 79 mg/dL (74-99); Non-African American GFR(CKD) >90 (>60 ml/min/1.73 sqM); Sodium 138 mmol/L (137-145); Total Bilirubin 0.7 mg/dL (0.2-1.3); Total Protein 6.6 g/dL (6.3-8.2)
--- NOTE | 2023-02-15 14:52 | XR ---
EXAMINATION TYPE: XR chest 2V DATE OF EXAM: 02/15/2023 COMPARISON: 08/30/2021 HISTORY: Shortness of breath TECHNIQUE: Frontal and lateral views of the chest are obtained. FINDINGS: Scattered senescent parenchymal changes noted. Patchy perihilar and basilar infiltrates noted. Correlate for pneumonia. Heart size is stable. Mediastinal structures are stable and grossly unremarkable. No evidence for hilar prominence. Degenerative changes dorsal spine. IMPRESSION: 1. Patchy perihilar and basilar infiltrates noted. Correlate for pneumonia.
--- NOTE | 2023-02-15 14:57 | ED ---
URI HPI - General Chief Complaint: Upper Respiratory Infection Stated Complaint: Cough, back pain Time Seen by Provider: 02/15/23 13:20 Source: patient, RN notes reviewed Mode of arrival: ambulatory Limitations: no limitations - History of Present Illness Initial Comments: 57-year-old female presents emergency Department with chief complaint of cough. Patient states she's had a cough for 2 weeks nonproductive persistent cough. She states she has pain in left flank region states it's worse when she coughs takes deep inspiration. Patient saw PCP due to lab work present emergency from because her white count was elevated at 18. She denies any anterior chest pain denies reported fever does complain of chills no abdominal pain. - Related Data Home Medications Medication Instructions Recorded Confirmed Famotidine [Pepcid] 20 mg PO HS 09/15/19 10/23/21 Acetaminophen-Codeine 300-30mg 1 tab PO Q6H PRN 10/21/21 10/23/21 [Tylenol w/codeine #3] Cholecalciferol [Vitamin D3 (25 25 mcg PO DAILY 10/21/21 10/23/21 Mcg = 1000 Iu)] Cyclobenzaprine [Flexeril] 10 mg PO TID PRN 10/21/21 10/23/21 Ferrous Sulfate [Feosol] 325 mg PO DAILY 10/21/21 10/23/21 Previous Rx's Medication Instructions Recorded lisinopriL [Zestril] 40 mg PO DAILY #30 tablet 03/13/17 Acetaminophen-Codeine 300-30mg 1 tab PO Q4H PRN 7 Days #30 tablet 10/23/21 [Tylenol w/codeine #3] Famotidine [Pepcid] 20 mg PO DAILY #7 tablet 02/26/22 diphenhydrAMINE [Benadryl] 25 mg PO TID PRN #21 capsule 02/26/22 predniSONE 50 mg PO DAILY #5 tab 02/26/22 Azithromycin [Zithromax Z Pack] 0 tab PO DIRECTED #6 tab 02/15/23 Allergies Allergy/AdvReac Type Severity Reaction Status Date / Time lisinopril Allergy Severe Angioedema Verified 02/26/22 12:50 hydrocodone [From Vicodin] AdvReac Itching Verified 02/26/22 11:06 Review of Systems ROS Statement: Those systems with pertinent positive or pertinent negative responses have been documented in the HPI. ROS Other: All systems not noted in ROS Statement are negative. Past Medical History Past Medical History: GERD/Reflux, Hypertension, Musculoskeletal Disorder, Osteoarthritis (OA) Additional Past Medical History / Comment(s): borderline ANEMIA, BACK & neck PAIN, fx. left 5th toe after being stepped on, wearing boot left foot History of Any Multi-Drug Resistant Organisms: None Reported Past Surgical History: Hysterectomy Additional Past Surgical History / Comment(s): neck pain Past Anesthesia/Blood Transfusion Reactions: No Reported Reaction, Motion Sickness Past Psychological History: No Psychological Hx Reported Smoking Status: Never smoker - Past Family History Mother Family Medical History: No Reported History General Exam Limitations: no limitations General appearance: alert, in no apparent distress Head exam: Present: atraumatic, normocephalic, normal inspection Eye exam: Present: normal appearance, PERRL, EOMI. Absent: scleral icterus, conjunctival injection, periorbital swelling ENT exam: Present: normal exam, normal oropharynx, mucous membranes moist Neck exam: Present: normal inspection, full ROM. Absent: tenderness, meningismus, lymphadenopathy Respiratory exam: Present: normal lung sounds bilaterally. Absent: respiratory distress, wheezes, rales, rhonchi, stridor Cardiovascular Exam: Present: regular rate, normal rhythm, normal heart sounds. Absent: systolic murmur, diastolic murmur, rubs, gallop, clicks GI/Abdominal exam: Present: soft, normal bowel sounds. Absent: distended, t enderness, guarding, rebound, rigid Course Vital Signs 02/15/23 02/15/23 02/15/23 13:16 15:13 15:45 Temperature 98 F 101.8 F H 101.9 F H Pulse Rate 92 90 Respiratory 16 16 Rate Blood Pressure 133/83 133/69 O2 Sat by Pulse 98 100 Oximetry Medical Decision Making - Medical Decision Making Was pt. sent in by a medical professional or institution (, PA, HAT BINDER, urgent c are, hospital, or detention...) When possible be specific @ -PCP Did you speak to anyone other than the patient for history (EMS, parent, family, police, friend...)? What history was obtained from this source @ -No Did you review nursing and triage notes (agree or disagree)? Why? @ -I reviewed and agree with nursing and triage notes Were old charts reviewed (outside hosp., previous admission, EMS record, old EKG, old radiological studies, urgent care reports/EKG's, detention records)? Report findings @ -No old charts were reviewed Differential Diagnosis (chest pain, altered mental status, abdominal pain women, abdominal pain men, vaginal bleeding, weakness, fever, dyspnea, syncope, headache, dizziness, GI bleed, back pain, seizure, CVA, palpatations, mental health, musculoskeletal)? @ -On [place] internal dyspnea EKG interpreted by me (3pts min.). @ -As above X-rays interpreted by me (1pt min.). @ -Chest x-ray shows bibasilar infiltrates CT interpreted by me (1pt min.). @ -CT is negative for PE but shows multifocal pneumonia U/S interpreted by me (1pt. min.). @ -None done What testing was considered but not performed or refused? (CT, X-rays, U/S, labs)? Why? @ -None What meds were considered but not given or refused? Why? @ -None Did you discuss the management of the patient with other professionals (professionals i.e. , PA, HAT BINDER, lab, RT, psych nurse, social media senior associate, school admissions representative, teacher, promotion officer, protective services case worker)? Give summary @ -No Was smoking cessation discussed for >3mins.? @ -No Was critical care preformed (if so, how long)? @ -No Were there social determinants of health that impacted care today? How? (Homelessness, low income, unemployed, alcoholism, drug addiction, transportation, low edu. Level, literacy, decrease access to med. care, intermediate, rehab)? @ -No Was there de-escalation of care discussed even if they declined (Discuss DNR or withdrawal of care, Hospice)? DNR status @ -No What co-morbidities impacted this encounter? (DM, HTN, Smoking, COPD, CAD, Cancer, CVA, ARF, Chemo, Hep., AIDS, mental health diagnosis, sleep apnea, morbid obesity)? @ -None Was patient admitted / discharged? Hospital course, mention meds given and route, prescriptions, significant lab abnormalities, going to OR and other pertinent info. @ -Discharge patient feels improved at this time. Patient does have evidence of multifocal pneumonia is not hypoxic otherwise but is stable. Patient was given Rocephin, azithromycin discharged on azithromycin patient presents plan. Undiagnosed new problem with uncertain prognosis? @ -No Drug Therapy requiring intensive monitoring for toxicity (Heparin, Nitro, Insulin, Cardizem)? @ -No Were any procedures done? @ -No Diagnosis/symptom? @ -Pneumonia Acute, or Chronic, or Acute on Chronic? @ -Acute Uncomplicated (without systemic symptoms) or Complicated (systemic symptoms)? @ -complicated Side effects of treatment? @ -No Exacerbation, Progression, or Severe Exacerbation? @ -No Poses a threat to life or bodily function? How? (Chest pain, [place], NM, pneumonia, PE, COPD, DKA, ARF, appy, cholecystitis, CVA, Diverticulitis, Homicidal, Suicidal, threat to staff... and all critical care pts) @ -No - Lab Data Result diagrams: 02/15/23 13:42 02/15/23 13:42 Lab Results 02/15/23 02/15/23 02/15/23 Range/Units 13:42 13:42 13:42 WBC 17.5 H (3.8-10.6) k/uL RBC 3.45 L (3.80-5.40) m/uL Hgb 10.1 L (11.4-16.0) gm/dL Hct 31.2 L (34.0-46.0) % MCV 90.6 (80.0-100.0) fL MCH 29.3 (25.0-35.0) pg MCHC 32.4 (31.0-37.0) g/dL RDW 14.4 (11.5-15.5) % Plt Count 607 H (150-450) k/uL MPV 7.6 Neutrophils % 85 % Lymphocytes % 8 % Monocytes % 3 % Eosinophils % 3 % Basophils % 0 % Neutrophils # 14.8 H (1.3-7.7) k/uL Lymphocytes # 1.5 (1.0-4.8) k/uL Monocytes # 0.5 (0-1.0) k/uL Eosinophils # 0.6 (0-0.7) k/uL Basophils # 0.1 (0-0.2) k/uL Manual Slide Review Performed D-Dimer 3.61 H (<0.60) mg/L FEU Sodium 138 (137-145) mmol/L Potassium 4.0 (3.5-5.1) mmol/L Chloride 101 (98-107) mmol/L Carbon Dioxide 28 (22-30) mmol/L Anion Gap 9 mmol/L BUN 7 (7-17) mg/dL Creatinine 0.57 (0.52-1.04) mg/dL Est GFR (CKD-EPI)AfAm >90 (>60 ml/min/1.73 sqM) Est GFR (CKD-EPI)NonAf >90 (>60 ml/min/1.73 sqM) Glucose 79 (74-99) mg/dL Plasma Lactic Acid Tacho (0.7-2.0) mmol/L Calcium 9.0 (8.4-10.2) mg/dL Total Bilirubin 0.7 (0.2-1.3) mg/dL AST 38 H (14-36) U/L ALT 42 H (4-34) U/L Alkaline Phosphatase 223 H (38-126) U/L Troponin I (0.000-0.034) ng/mL Total Protein 6.6 (6.3-8.2) g/dL Albumin 3.2 L (3.5-5.0) g/dL Coronavirus (PCR) (Not Detectd) 02/15/23 02/15/23 02/15/23 Range/Units 13:42 13:42 15:52 WBC (3.8-10.6) k/uL RBC (3.80-5.40) m/uL Hgb (11.4-16.0) gm/dL Hct (34.0-46.0) % MCV (80.0-100.0) fL MCH (25.0-35.0) pg MCHC (31.0-37.0) g/dL RDW (11.5-15.5) % Plt Count (150-450) k/uL MPV Neutrophils % % Lymphocytes % % Monocytes % % Eosinophils % % Basophils % % Neutrophils # (1.3-7.7) k/uL Lymphocytes # (1.0-4.8) k/uL Monocytes # (0-1.0) k/uL Eosinophils # (0-0.7) k/uL Basophils # (0-0.2) k/uL Manual Slide Review D-Dimer (<0.60) mg/L FEU Sodium (137-145) mmol/L Potassium (3.5-5.1) mmol/L Chloride (98-107) mmol/L Carbon Dioxide (22-30) mmol/L Anion Gap mmol/L BUN (7-17) mg/dL Creatinine (0.52-1.04) mg/dL Est GFR (CKD-EPI)AfAm (>60 ml/min/1.73 sqM) Est GFR (CKD-EPI)NonAf (>60 ml/min/1.73 sqM) Glucose (74-99) mg/dL Plasma Lactic Acid Tacho 1.1 (0.7-2.0) mmol/L Calcium (8.4-10.2) mg/dL Total Bilirubin (0.2-1.3) mg/dL AST (14-36) U/L ALT (4-34) U/L Alkaline Phosphatase (38-126) U/L Troponin I <0.012 (0.000-0.034) ng/mL Total Protein (6.3-8.2) g/dL Albumin (3.5-5.0) g/dL Coronavirus (PCR) Not Detected (Not Detectd) - EKG Data -: EKG Interpreted by Me EKG Comments: EKG performed at 14:00 sinus rhythm rate of 92 NV 153 QRS 90 QT/QTC 355/405 Disposition Clinical Impression: Pneumonia Disposition: HOME SELF-CARE Condition: Stable Instructions (If sedation given, give patient instructions): Pneumonia (ED) Additional Instructions: Please return to the Emergency Department if symptoms worsen or any other concerns. Prescriptions: Azithromycin [Zithromax Z Pack] 0 tab PO DIRECTED #6 tab Is patient prescribed a controlled substance at d/c from ED?: No Referrals: Perlita Martinez MD [Primary Care Provider] - 1-2 days Time of Disposition: 16:21
--- NOTE | 2023-02-15 15:15 | CT ---
EXAMINATION TYPE: CT chest angio for PE DATE OF EXAM: 02/15/2023 COMPARISON: 05/30/2022 HISTORY: cough, chest pain CT DLP: 277.1 mGycm CONTRAST: CT chest with contrast and 3D reconstruction with MIP imaging is performed with IV Contrast, patient injected with 100 mL of Isovue 370. Contrast-enhanced CT of the chest was performed through the course of the pulmonary arteries with rowena g and mediastinal window settings submitted. 3D reconstruction with MIP imaging was also performed. PULMONARY ARTERIES: The pulmonary arteries and their major tributaries are patent. I do not see mulu dence for sizable filling defect to suggest pulmonary embolic process. LUNGS: Lower lobe infiltrates as well as infiltrate within the right middle lobe compatible with mult ifocal pneumonia. Small left-sided pleural effusion. Atelectasis adjacent to the right heart border. No pulmonary nodule or mass is detected. MEDIASTINUM: Thoracic aorta is of normal caliber. The heart is not enlarged. No evidence for medias tinal mass. No mediastinal lymph nodes greater than 1cm. HILAR STRUCTURES: No evidence for mass. No hilar lymph nodes greater than 1 cm. UPPER ABDOMEN: No significant abnormality is seen. IMPRESSION: 1. No evidence for Pulmonary embolism at this time. 2. Multifocal pneumonia.
[2023-02-15] MEDS ORDERED: ACETAMINOPHEN TAB 500 MG TAB PO STA (15:40)
[2023-02-15] MEDS ORDERED: AZITHROMYCIN 250 MG TAB PO STA (16:19)
[2023-02-15] MEDS ORDERED: ACET/COD 300 MG/30 MG STARTER PACK 6 TAB BTL PO STA (16:41)
[2023-02-15] MEDS ORDERED: KETOROLAC 15 MG/ML 1 ML VIAL IVP STA (16:41)
[2023-02-15 18:15] VITALS: BP 112/75; PULSE 94; TEMP 99.2
== END 2023-02-15 17:53 | disposition home or self-care (01) ==
LOC: EC 13:00
DX: J18.9 Pneumonia, unspecified organism (principal); I10 Essential (primary) hypertension; M19.90 Unspecified osteoarthritis, unspecified site; Z79.1 Long term (current) use of non-steroidal anti-inflammatories (NSAID); Z88.6 Allergy status to analgesic agent; Z20.822 Contact with and (suspected) exposure to COVID-19; Z88.5 Allergy status to narcotic agent; Z88.8 Allergy status to other drugs, medicaments and biological substances
CPT/HCPCS: 36415; 93005; 85379; 80053; 83605; 84484; 85025; 87635; 71046; 71275; 99284; 96365; 96375; J0696; J1885; Q9967

== ENCOUNTER → 2023-02-25 | Outpatient (CLI) | payer OTHER ==
--- NOTE | 2023-02-26 15:20 | MR ---
EXAMINATION TYPE: MR shoulder RT wo con DATE OF EXAM: 02/25/2023 9:53 PM COMPARISON: NONE HISTORY: Rt shoulder pain TECHNIQUE: Multiplanar multispin echo imaging of the right shoulder was performed. FINDINGS: Rotator cuff : Thickening and heterogeneity of the supraspinatus tendon compatible with chronic tendi nopathy. There is a full-thickness partial tear at the humeral insertion of the supraspinatus without retraction. Intrasubstance tear is seen just proximal to the critical zone of the supraspinatus tend on. The infraspinatus component and subscapularis components of the rotator cuff are intact. Bursa: No bursal effusion or thickening is seen. Musculature: There is no muscular tear, contusion, or atrophy. Acromioclavicular joint : Moderate AC joint arthropathy with subacromial spur and impingement. Osseous structures : There are no fractures or regions of abnormal bone marrow signal intensity. Long biceps tendon : The biceps tendon is normally situated within the bicipital groove. No complete or partial biceps tendon tear is present. Glenohumeral Joint fluid : There is no glenohumeral joint effusion. Cartilage and Bone : No focal hyaline cartilage defects are noted. No Hill-Sachs, reverse Hill-Sachs, or bony Bankart lesions are seen. Labrum : There are no SLAP or soft tissue Bankart lesions. No paralabral cysts are seen. OTHER FINDINGS : none IMPRESSION: 1. Chronic tendinopathy supraspinatus tendon with full thickness partial tear and intrasubstance tear s as discussed above.
--- NOTE | 2023-02-27 15:52 | MR ---
EXAMINATION TYPE: MR quique/joselin wo con DATE OF EXAM: 02/25/2023 COMPARISON: None HISTORY: Neck and Lower back pain CONTRAST: Performed utilizing 0 mL intravenous Gadavist gadolinium contrast. TECHNIQUE: Multiplanar multiecho imaging on a 3.0 Nithya magnet is performed through the cervical spin e. FINDINGS: The craniovertebral junction is normal. There is straightening of the cervical vertebral al ignment sagittal plane. Subtle kyphosis may be in the upper cervical spine. C7-T1: No focal disc herniation or significant disc bulge is evident. No spinal canal stenosis or n eural foraminal stenosis is present. C6-7: Broad-based disc bulge and endplate spurring is mild anterior thecal sac compression. As greate r to the left paracentral lateral regions. Uncovertebral joint hypertrophy is present with foraminal stenosis greater on the left. No cord contact is evident. Disc space narrowing is present. C5-6: Disc space narrowing is present. Endplate spurring associated disc material has mild anterior t hecal sac compression. No cord contact is evident. Uncovertebral joint hypertrophy is moderate left f oraminal stenosis.. C4-5: Broad-based disc bulge has moderate anterior thecal sac compression. This may have anterior cor d contact. No AP spinal canal stenosis is present. Neural foramen are patent.. C3-4: Broad-based disc bulging is anterior thecal sac flattening. There may be some cord contact pres ent. No AP spinal canal stenosis is present. Foramina are patent.. C2-3: Mild disc bulge is present greater to the left paracentral region. This has mild anterior theca l sac compression. No cord contact or cord deformity is evident. No spinal canal stenosis present. Fo ramina are patent.. IMPRESSIONS: 1. Degenerative endplate changes with endplate spurring and associated disc material with mild to mod erate anterior thecal sac compression discussed above. This may have some cord contact at the C4-C5 a nd C3-4 levels. EXAMINATION TYPE: MR lei/joselin wo con DATE OF EXAM: 02/25/2023 COMPARISON: None HISTORY: Neck and Lower back pain CONTRAST: 0 mL intravenous Gadavist. TECHNIQUE: Multiplanar, multisequence images of the lumbar spine were acquired. FINDINGS: Cord terminates at the L1 level. L5-S1: Mild narrowing of disc height is present. Moderate disc bulge is present anterior thecal sac c ontact. Some left paracentral subligamentous disc herniation with extension beyond the L5 endplate ma y be present. No spinal canal stenosis or neural foraminal stenosis is present. L4-L5: Broad-based disc bulge is present with moderate anterior thecal sac compression. No AP spinal canal stenosis is present. Facet hypertrophy and ligamentum flavum laxity are present with some poste rior lateral thecal sac compression. L3-L4: No significant disc bulge or disc herniation. No spinal canal stenosis. No foraminal stenosi s. L2-L3: No significant disc bulge or disc herniation. No spinal canal stenosis. No foraminal stenosi s. L1-L2: No significant disc bulge or disc herniation. No spinal canal stenosis. No foraminal stenosi s. T12-L1: No significant disc bulge or disc herniation. No spinal canal stenosis. No foraminal stenos is. IMPRESSION: 1. Moderate focal disc bulging or disc herniation L4-5 moderate anterior thecal sac compression. 2. Mild disc bulge L5-S1
== END | disposition home or self-care (01) ==
LOC: RADMRIMAIN 20:45
PROVIDERS: ATTEND Family Medicine
DX: M75.111 Incomplete rotator cuff tear or rupture of right shoulder, not specified as traumatic (principal); M50.31 Other cervical disc degeneration, high cervical region; M47.812 Spondylosis without myelopathy or radiculopathy, cervical region; M99.71 Connective tissue and disc stenosis of intervertebral foramina of cervical region; M51.26 Other intervertebral disc displacement, lumbar region; M51.27 Other intervertebral disc displacement, lumbosacral region
CPT/HCPCS: 72141; 72148

== ENCOUNTER 2023-05-10 08:58 | Emergency (ER) | payer SELFPAY ==
[2023-05-10] MEDS ORDERED: KETOROLAC 15 MG/ML 1 ML VIAL IVP STA (09:13)
[2023-05-10] MEDS ORDERED: SODIUM CHLORIDE 0.9% 1,000 ML IV STA (09:13)
[2023-05-10] MEDS ORDERED: PANTOPRAZOLE 40 MG/10 ML VIAL IVP STA (09:13)
[2023-05-10] MEDS ORDERED: SODIUM CHLORIDE 0.9% 500 ML 500 ML IV STA (09:13)
[2023-05-10] MEDS ORDERED: ONDANSETRON 4 MG/2 ML VIAL IVP STA (09:13)
[2023-05-10 09:14] VITALS: TEMP 98.2
--- NOTE | 2023-05-10 09:30 | ED ---
Abdominal Pain HPI - General Chief Complaint: Abdominal Pain Stated Complaint: abd pain Time Seen by Provider: 05/10/23 09:02 Source: patient, RN notes reviewed Mode of arrival: ambulatory Limitations: no limitations - History of Present Illness Initial Comments: 57-year-old female presents emergency Department with chief complaint of midabdominal pain. Patient states started Thursday as worsen. Patient does have slight nausea without severe vomiting diarrhea constipation she states feels like pancreatitis that she had in March. She states she's been sober since March 15. Denies any reported fever no chest pain or shortness of breath no other complaints. - Related Data Home Medications Medication Instructions Recorded Confirmed Famotidine [Pepcid] 20 mg PO HS 09/15/19 03/15/23 Cyclobenzaprine [Flexeril] 10 mg PO HS PRN 10/21/21 03/15/23 Ferrous Sulfate [Iron (65 MG 325 mg PO DAILY 10/21/21 03/15/23 Elemental)] Alendronate Sodium [Fosamax] 70 mg PO MO 03/15/23 03/15/23 Atorvastatin [Lipitor] 40 mg PO HS 03/15/23 03/15/23 Ergocalciferol [Vitamin D2 (1250 1,250 mcg PO MO 03/15/23 03/15/23 Mcg = 32383 Iu)] amLODIPine [Norvasc] 5 mg PO DAILY 03/15/23 03/15/23 Previous Rx's Medication Instructions Recorded Amoxic-Pot Clav 875-125Mg 1 each PO Q12HR 5 Days #10 tab 03/22/23 [Augmentin 875-125] Famotidine [Pepcid] 20 mg PO BID #28 tablet 05/10/23 Allergies Allergy/AdvReac Type Severity Reaction Status Date / Time lisinopril AdvReac Severe Angioedema Verified 05/10/23 09:01 hydrocodone [From Vicodin] AdvReac Itching Verified 05/10/23 09:01 Review of Systems ROS Statement: Those systems with pertinent positive or pertinent negative responses have been documented in the HPI. ROS Other: All systems not noted in ROS Statement are negative. Past Medical History Past Medical History: GERD/Reflux, Hypertension, Musculoskeletal Disorder, Osteoarthritis (OA) Additional Past Medical History / Comment(s): borderline ANEMIA, BACK & neck PAIN, fx. left 5th toe after being stepped on, wearing boot left foot History of Any Multi-Drug Resistant Organisms: None Reported Past Surgical History: Hysterectomy Additional Past Surgical History / Comment(s): neck pain Past Anesthesia/Blood Transfusion Reactions: No Reported Reaction, Motion Sickness Past Psychological History: No Psychological Hx Reported Smoking Status: Never smoker Past Alcohol Use History: None Reported Past Drug Use History: Marijuana - Past Family History Mother Family Medical History: No Reported History General Exam Limitations: no limitations General appearance: alert, in no apparent distress Head exam: Present: atraumatic, normocephalic, normal inspection Eye exam: Present: normal appearance, PERRL, EOMI. Absent: scleral icterus, conjunctival injection, periorbital swelling Cardiovascular Exam: Present: regular rate, normal rhythm, normal heart sounds. Absent: systolic murmur, diastolic murmur, rubs, gallop, clicks GI/Abdominal exam: Present: soft, tenderness, normal bowel sounds. Absent: distended, guarding, rebound, rigid Back exam: Absent: CVA tenderness (R), CVA tenderness (L) Neurological exam: Present: alert Skin exam: Present: warm, dry, intact, normal color. Absent: rash Course Vital Signs 05/10/23 05/10/23 05/10/23 08:59 09:30 10:00 Temperature 98.2 F Pulse Rate 82 Respiratory 20 18 18 Rate Blood Pressure 165/76 155/81 149/77 O2 Sat by Pulse 98 100 100 Oximetry 05/10/23 11:58 Temperature Pulse Rate 67 Respiratory 18 Rate Blood Pressure 154/81 O2 Sat by Pulse 100 Oximetry Medical Decision Making - Medical Decision Making Was pt. sent in by a medical professional or institution (, PA, SURVEILLANCE INVESTIGATOR, urgent care, hospital, or skilled nursing...) When possible be specific @ -No Did you speak to anyone other than the patient for history (EMS, parent, family, police, friend...)? What history was obtained from this source @ -No Did you review nursing and triage notes (agree or disagree)? Why? @ -I reviewed and agree with nursing and triage notes Were old charts reviewed (outside hosp., previous admission, EMS record, old EKG, old radiological studies, urgent care reports/EKG's, skilled nursing records)? Report findings @ -Review prior chart, laboratory studies Differential Diagnosis (chest pain, altered mental status, abdominal pain women, abdominal pain men, vaginal bleeding, weakness, fever, dyspnea, syncope, headache, dizziness, GI bleed, back pain, seizure, CVA, palpatations, mental health, musculoskeletal)? @ -nDifferential Abdominal Pain Women: Appendicitis, Cholecystitis, diverticulosis, ischemic bowel, pancreatitis, hepa titis, UTI, gastroenteritis, AAA, incarcerated hernia, bowel obstruction, constipation, inflammatory bowel, hepatitis, peptic ulcer disease, splenic infarction, perforated viscus, vulvitis, ovarian torsion, PID, kidney stone, placenta abruption, this is not meant to be an all-inclusive listble EKG interpreted by me (3pts min.). @ -None X-rays interpreted by me (1pt min.). @ -None done CT interpreted by me (1pt min.). @ -None done U/S interpreted by me (1pt. min.). @ -None done What testing was considered but not performed or refused? (CT, X-rays, U/S, labs)? Why? @ -None What meds were considered but not given or refused? Why? @ -None Did you discuss the management of the patient with other professionals (professionals i.e. , PA, SURVEILLANCE INVESTIGATOR, lab, RT, psych nurse, social and human services assistant, parcel post order clerk, teacher, ship's electronic warfare officer, counseling case manager)? Give summary @ -No Was smoking cessation discussed for >3mins.? @ -No Was critical care preformed (if so, how long)? @ -No Were there social determinants of health that impacted care today? How? (Homelessness, low income, unemployed, alcoholism, drug addiction, transportation, low edu. Level, literacy, decrease access to med. care, long-term, rehab)? @ -No Was there de-escalation of care discussed even if they declined (Discuss DNR or withdrawal of care, Hospice)? DNR status @ -No What co-morbidities impacted this encounter? (DM, HTN, Smoking, COPD, CAD, Cancer, CVA, ARF, Chemo, Hep., AIDS, mental health diagnosis, sleep apnea, m orbid obesity)? @ -Pancreatitis, alcohol abuse Was patient admitted / discharged? Hospital course, mention meds given and route, prescriptions, significant lab abnormalities, going to OR and other pertinent info. @ -Discharge patient felt improved after pain meds, GI cocktail left wrist there is unremarkable patient will be discharged with close follow-up return parameters were discussed. Undiagnosed new problem with uncertain prognosis? @ -No Drug Therapy requiring intensive monitoring for toxicity (Heparin, Nitro, Insulin, Cardizem)? @ -No Were any procedures done? @ -No Diagnosis/symptom? @ -Abdominal pain Acute, or Chronic, or Acute on Chronic? @ -Acute Uncomplicated (without systemic symptoms) or Complicated (systemic symptoms)? @ -Uncomplicated Side effects of treatment? @ -No Exacerbation, Progression, or Severe Exacerbation? @ -No Poses a threat to life or bodily function? How? (Chest pain, [place], [place], pneumonia, PE, COPD, DKA, ARF, appy, cholecystitis, CVA, Diverticulitis, Homicidal, Suicidal, threat to staff... and all critical care pts) @ -No - Lab Data Result diagrams: 05/10/23 09:15 05/10/23 09:15 Lab Results 05/10/23 05/10/23 05/10/23 Range/Units 09:15 09:15 09:15 WBC 7.6 (3.8-10.6) k/uL RBC 3.58 L (3.80-5.40) m/uL Hgb 10.2 L (11.4-16.0) gm/dL Hct 31.9 L (34.0-46.0) % MCV 89.3 D (80.0-100.0) fL MCH 28.5 (25.0-35.0) pg MCHC 31.9 (31.0-37.0) g/dL RDW 15.2 (11.5-15.5) % Plt Count 414 (150-450) k/uL MPV 8.5 Neutrophils % 65 % Lymphocytes % 25 % Monocytes % 6 % Eosinophils % 3 % Basophils % 0 % Neutrophils # 4.9 (1.3-7.7) k/uL Lymphocytes # 1.9 (1.0-4.8) k/uL Monocytes # 0.4 (0-1.0) k/uL Eosinophils # 0.2 (0-0.7) k/uL Basophils # 0.0 (0-0.2) k/uL Hypochromasia Slight Sodium 143 (137-145) mmol/L Potassium 3.8 (3.5-5.1) mmol/L Chloride 106 (98-107) mmol/L Carbon Dioxide 25 (22-30) mmol/L Anion Gap 12 mmol/L BUN 9 (7-17) mg/dL Creatinine 0.67 (0.52-1.04) mg/dL Est GFR (CKD-EPI)AfAm >90 (>60 ml/min/1.73 sqM) Est GFR (CKD-EPI)NonAf >90 (>60 ml/min/1.73 sqM) Glucose 117 H (74-99) mg/dL Calcium 9.7 (8.4-10.2) mg/dL Magnesium 1.4 L (1.6-2.3) mg/dL Total Bilirubin 0.6 (0.2-1.3) mg/dL AST 23 (14-36) U/L ALT 22 (4-34) U/L Alkaline Phosphatase 115 (38-126) U/L Total Protein 7.2 (6.3-8.2) g/dL Albumin 3.9 (3.5-5.0) g/dL Amylase 84 (30-110) U/L Lipase 241 (23-300) U/L Urine Color Yellow Urine Appearance Cloudy H (Clear) Urine pH 5.5 (5.0-8.0) Ur Specific [place] 1.027 (1.001-1.035) Urine Protein Trace H (Negative) Urine Glucose (UA) Negative (Negative) Urine Ketones Negative (Negative) Urine Blood Negative (Negative) Urine Nitrite Negative (Negative) Urine Bilirubin Negative (Negative) Urine Urobilinogen <2.0 (<2.0) mg/dL Ur Leukocyte Esterase Trace H (Negative) Urine RBC 2 (0-5) /hpf Urine WBC 4 (0-5) /hpf Ur Squamous Epith Cells 7 H (0-4) /hpf Hyaline Casts 4 H (0-2) /lpf Urine Mucus Occasional H (None) /hpf Serum Alcohol <10 mg/dL Disposition Clinical Impression: Abdominal pain Disposition: HOME SELF-CARE Condition: Stable Instructions (If sedation given, give patient instructions): Abdominal Pain (ED) Additional Instructions: Please return to the Emergency Department if symptoms worsen or any other concerns. Prescriptions: Famotidine [Pepcid] 20 mg PO BID #28 tablet Is patient prescribed a controlled substance at d/c from ED?: No Referrals: Perlita Martinez MD [Primary Care Provider] - 1-2 days Time of Disposition: 11:51
[2023-05-10 11:03] LABS: Basophils % (A) 0 %; Eosinophils # (A) 0.2 k/uL (0-0.7); Eosinophils % (A) 3 %; HCT 31.9 % (34.0-46.0); HGB 10.2 gm/dL (11.4-16.0); Hypochromasia Slight; Lymphocytes # (A) 1.9 k/uL (1.0-4.8); Lymphocytes % (A) 25 %; MCH 28.5 pg (25.0-35.0); MCHC 31.9 g/dL (31.0-37.0); Mean Platelet Volume 8.5; Monocytes # (A) 0.4 k/uL (0-1.0); Monocytes % (A) 6 %; Neutrophils # (A) 4.9 k/uL (1.3-7.7); Neutrophils % (A) 65 %; Platelet Count 414 k/uL (150-450); RBC 3.58 m/uL (3.80-5.40); RDW 15.2 % (11.5-15.5); WBC 7.6 k/uL (3.8-10.6)
[2023-05-10 11:07] LABS: Appearance,Urine Cloudy (Clear); Bilirubin,Urine Negative (Negative); Blood,Urine Negative (Negative); Color,Urine Yellow; Glucose,Urine (UA) Negative (Negative); Hyaline Casts,Urine 4 /lpf (0-2); Ketones,Urine Negative (Negative); Leukocyte Esterase,Urine Trace (Negative); Mucus,Urine Occasional /hpf; Nitrite,Urine Negative (Negative); PH, Urine 5.5 (5.0-8.0); Protein,Urine Trace (Negative); RBC,Urine 2 /hpf (0-5); Specific Gravity,Urine 1.027 (1.001-1.035); Squamous Epithelial Cell,Urine 7 /hpf (0-4); Urobilinogen,Urine <2.0 mg/dL (<2.0); WBC,Urine 4 /hpf (0-5)
[2023-05-10 11:15] LABS: ALT 22 U/L (4-34); AST 23 U/L (14-36); African American GFR (CKD) >90 (>60 ml/min/1.73 sqM); Albumin 3.9 g/dL (3.5-5.0); Alcohol <10 mg/dL; Alkaline Phosphatase 115 U/L (38-126); Amylase 84 U/L (30-110); Anion Gap 12 mmol/L; Blood Urea Nitrogen 9 mg/dL (7-17); Calcium 9.7 mg/dL (8.4-10.2); Carbon Dioxide 25 mmol/L (22-30); Chloride 106 mmol/L (98-107); Glucose 117 mg/dL (74-99); Lipase 241 U/L (23-300); Magnesium 1.4 mg/dL (1.6-2.3); Non-African American GFR(CKD) >90 (>60 ml/min/1.73 sqM); Potassium 3.8 mmol/L (3.5-5.1); Sodium 143 mmol/L (137-145); Total Bilirubin 0.6 mg/dL (0.2-1.3); Total Protein 7.2 g/dL (6.3-8.2)
[2023-05-10 11:16] LABS: MCV 89.3 fL (80.0-100.0)
[2023-05-10] MEDS ORDERED: MAG HYDROX/AL HYDROX/SIMETH 30 ML, HYOSCYAMINE ELIXIR 10 ML PO STA ×2 (11:19)
[2023-05-10 12:12] VITALS: BP 154/81; PULSE 67; RESP 18
== END 2023-05-10 12:13 | disposition home or self-care (01) ==
LOC: EC 08:58
DX: R10.9 Unspecified abdominal pain (principal); I10 Essential (primary) hypertension; K21.9 Gastro-esophageal reflux disease without esophagitis; F12.90 Cannabis use, unspecified, uncomplicated; Z79.899 Other long term (current) drug therapy; Z88.5 Allergy status to narcotic agent; Z88.8 Allergy status to other drugs, medicaments and biological substances
CPT/HCPCS: 36415; 80053; 82150; 83690; 83735; 85025; 81001; 80320; 99284; 96374; 96375 ×2; 96361; J2405; J1885; C9113

== ENCOUNTER 2023-12-02 10:49 | Emergency (ER) | payer SELFPAY ==
--- NOTE | 2023-12-02 11:08 | ED ---
General Adult HPI - General Chief complaint: Abdominal Pain Stated complaint: Abdominal Pain Time Seen by Provider: 12/02/23 10:55 Source: patient, RN notes reviewed, old records reviewed Mode of arrival: ambulatory Limitations: no limitations - History of Present Illness Initial comments: 58-year-old female presenting with epigastric abdominal pain. Pain has been present over the past 24 hours. She has previous history of pancreatitis and admits that she has had several alcoholic beverages over the past few days. She denies excessive alcohol use. Denies nausea or vomiting. Denies lower abdominal pain. - Related Data Home Medications Medication Instructions Recorded Confirmed Famotidine [Pepcid] 20 mg PO DAILY 09/15/19 12/02/23 amLODIPine [Norvasc] 5 mg PO DAILY 03/15/23 12/02/23 Allergies Allergy/AdvReac Type Severity Reaction Status Date / Time lisinopril AdvReac Severe Angioedema Verified 12/02/23 11:35 hydrocodone [From Vicodin] AdvReac Itching Verified 12/02/23 11:35 Review of Systems ROS Statement: Those systems with pertinent positive or pertinent negative responses have been documented in the HPI. ROS Other: All systems not noted in ROS Statement are negative. Past Medical History Past Medical History: GERD/Reflux, Hypertension, Musculoskeletal Disorder, Osteoarthritis (OA) Additional Past Medical History / Comment(s): borderline ANEMIA, BACK & neck PAIN, fx. left 5th toe after being stepped on, wearing boot left foot History of Any Multi-Drug Resistant Organisms: None Reported Past Surgical History: Hysterectomy Additional Past Surgical History / Comment(s): neck pain Past Anesthesia/Blood Transfusion Reactions: No Reported Reaction, Motion Sickness Past Psychological History: No Psychological Hx Reported Smoking Status: Never smoker Past Alcohol Use History: None Reported Past Drug Use History: Marijuana - Past Family History Mother Family Medical History: No Reported History General Exam Limitations: no limitations General appearance: alert, in no apparent distress Head exam: Present: atraumatic, normocephalic Eye exam: Present: normal appearance, PERRL Neck exam: Present: normal inspection. Absent: tenderness, meningismus Respiratory exam: Present: normal lung sounds bilaterally. Absent: respiratory distress, wheezes Cardiovascular Exam: Present: regular rate, normal rhythm GI/Abdominal exam: Present: soft, tenderness (Mild epigastric tenderness). Absent: distended, guarding, rebound Extremities exam: Present: normal inspection, normal capillary refill Neurological exam: Present: alert, oriented X3 Psychiatric exam: Present: normal affect, normal mood Skin exam: Present: warm, dry, intact. Absent: cyanosis, diaphoretic Course Vital Signs 12/02/23 10:50 Temperature 98.7 F Pulse Rate 82 Respiratory 18 Rate Blood Pressure 151/80 O2 Sat by Pulse 99 Oximetry Medical Decision Making - Medical Decision Making Was pt. sent in by a medical professional or institution (TONO Siu, MANAGER STUDIO, urgent c are, hospital, or fci...) When possible be specific @ -No Did you speak to anyone other than the patient for history (EMS, parent, family, police, friend...)? What history was obtained from this source @ -No Did you review nursing and triage notes (agree or disagree)? Why? @ -I reviewed and agree with nursing and triage notes Were old charts reviewed (outside hosp., previous admission, EMS record, old EKG, old radiological studies, urgent care reports/EKG's, fci records)? Report findings @ -No old charts were reviewed Differential Abdominal Pain Women: Appendicitis, Cholecystitis, diverticulosis, ischemic bowel, pancreatitis, hepatitis, UTI, gastroenteritis, AAA, incarcerated hernia, bowel obstruction, constipation, inflammatory bowel, hepatitis, peptic ulcer disease, splenic infarction, perforated viscus, vulvitis, ovarian torsion, PID, kidney stone, placenta abruption, this is not meant to be an all-inclusive list EKG interpreted by me (3pts min.). @ -As above X-rays interpreted by me (1pt min.). @ -None done CT interpreted by me (1pt min.). @ -None done U/S interpreted by me (1pt. min.). @ -None done What testing was considered but not performed or refused? (CT, X-rays, U/S, labs)? Why? @ -None What meds were considered but not given or refused? Why? @ -None Did you discuss the management of the patient with other professionals (professionals i.e. TONO Siu, MANAGER STUDIO, lab, RT, psych nurse, clinical social work aide, strategic partnership manager, teacher, field artillery officer, casey saw operator)? Give summary @ -No Was smoking cessation discussed for >3mins.? @ -No Was critical care preformed (if so, how long)? @ -No Were there social determinants of health that impacted care today? How? (Homelessness, low income, unemployed, alcoholism, drug addiction, transportation, low edu. Level, literacy, decrease access to med. care, residential, rehab)? @ -No Was there de-escalation of care discussed even if they declined (Discuss DNR or withdrawal of care, Hospice)? DNR status @ -No What co-morbidities impacted this encounter? (DM, HTN, Smoking, COPD, CAD, Cancer, CVA, ARF, Chemo, Hep., AIDS, mental health diagnosis, sleep apnea, morbid obesity)? @ -History of pancreatitis Was patient admitted / discharged? Hospital course, mention meds given and route, prescriptions, significant lab abnormalities, going to OR and other pertinent info. @ -58-year-old female presenting with epigastric pain which is similar in character to her previous episodes of pancreatitis. Patient has mild epigastric tenderness. Stable vitals. No vomiting or associated symptoms. Patient given symptomatic treatment and on reevaluation is feeling better. Her lipase is 700. Otherwise laboratory testing is unremarkable. Patient is instructed to abstain from alcohol and to be on a clear liquid diet. Stable for discharge. Undiagnosed new problem with uncertain prognosis? @ -No Drug Therapy requiring intensive monitoring for toxicity (Heparin, Nitro, Insulin, Cardizem)? @ -No Were any procedures done? @ -No Diagnosis/symptom? @Pancreatitis Acute, or Chronic, or Acute on Chronic? @ -Acute on chronic Uncomplicated (without systemic symptoms) or Complicated (systemic symptoms)? @ -Default Side effects of treatment? @ -No Exacerbation, Progression, or Severe Exacerbation? @ -No Poses a threat to life or bodily function? How? (Chest pain, [place], [place], pneumonia, PE, COPD, DKA, ARF, appy, cholecystitis, CVA, Diverticulitis, Homicidal, Suicidal, threat to staff... and all critical care pts) @ -[Low risk at this time - Lab Data Result diagrams: 12/02/23 11:47 12/02/23 11:47 Lab Results 12/02/23 12/02/23 12/02/23 Range/Units 11:47 11:47 11:47 WBC 8.5 (3.8-10.6) k/uL RBC 3.99 (3.80-5.40) m/uL Hgb 11.3 L (11.4-16.0) gm/dL Hct 35.9 (34.0-46.0) % MCV 89.9 (80.0-100.0) fL MCH 28.3 (25.0-35.0) pg MCHC 31.5 (31.0-37.0) g/dL RDW 14.6 (11.5-15.5) % Plt Count 282 (150-450) k/uL MPV 8.1 Neutrophils % 67 % Lymphocytes % 25 % Monocytes % 4 % Eosinophils % 3 % Basophils % 0 % Neutrophils # 5.7 (1.3-7.7) k/uL Lymphocytes # 2.2 (1.0-4.8) k/uL Monocytes # 0.4 (0-1.0) k/uL Eosinophils # 0.2 (0-0.7) k/uL Basophils # 0.0 (0-0.2) k/uL PT 10.5 (10.0-12.5) sec INR 0.9 (<1.2) APTT 24.0 (22.0-30.0) sec Sodium 139 (137-145) mmol/L Potassium 3.6 (3.5-5.1) mmol/L Chloride 109 H (98-107) mmol/L Carbon Dioxide 26 (22-30) mmol/L Anion Gap 4 mmol/L BUN 8 (7-17) mg/dL Creatinine 0.60 (0.52-1.04) mg/dL Est GFR (CKD-EPI)AfAm >90 (>60 ml/min/1.73 sqM) Est GFR (CKD-EPI)NonAf >90 (>60 ml/min/1.73 sqM) Glucose 115 H (74-99) mg/dL Plasma Lactic Acid [place] (0.7-2.0) mmol/L Calcium 9.5 (8.4-10.2) mg/dL Total Bilirubin 1.1 (0.2-1.3) mg/dL AST 22 (14-36) U/L ALT 18 (4-34) U/L Alkaline Phosphatase 81 (38-126) U/L Total Protein 7.0 (6.3-8.2) g/dL Albumin 4.3 (3.5-5.0) g/dL Amylase 119 H (30-110) U/L Lipase 714 H (23-300) U/L 12/02/23 Range/Units 11:47 WBC (3.8-10.6) k/uL RBC (3.80-5.40) m/uL Hgb (11.4-16.0) gm/dL Hct (34.0-46.0) % MCV (80.0-100.0) fL MCH (25.0-35.0) pg MCHC (31.0-37.0) g/dL RDW (11.5-15.5) % Plt Count (150-450) k/uL MPV Neutrophils % % Lymphocytes % % Monocytes % % Eosinophils % % Basophils % % Neutrophils # (1.3-7.7) k/uL Lymphocytes # (1.0-4.8) k/uL Monocytes # (0-1.0) k/uL Eosinophils # (0-0.7) k/uL Basophils # (0-0.2) k/uL PT (10.0-12.5) sec INR (<1.2) APTT (22.0-30.0) sec Sodium (137-145) mmol/L Potassium (3.5-5.1) mmol/L Chloride (98-107) mmol/L Carbon Dioxide (22-30) mmol/L Anion Gap mmol/L BUN (7-17) mg/dL Creatinine (0.52-1.04) mg/dL Est GFR (CKD-EPI)AfAm (>60 ml/min/1.73 sqM) Est GFR (CKD-EPI)NonAf (>60 ml/min/1.73 sqM) Glucose (74-99) mg/dL Plasma Lactic Acid [place] 0.6 L (0.7-2.0) mmol/L Calcium (8.4-10.2) mg/dL Total Bilirubin (0.2-1.3) mg/dL AST (14-36) U/L ALT (4-34) U/L Alkaline Phosphatase (38-126) U/L Total Protein (6.3-8.2) g/dL Albumin (3.5-5.0) g/dL Amylase (30-110) U/L Lipase (23-300) U/L Disposition Clinical Impression: Pancreatitis Disposition: HOME SELF-CARE Condition: Fair Instructions (If sedation given, give patient instructions): Pancreatitis (ED) Is patient prescribed a controlled substance at d/c from ED?: No Referrals: Perlita Martinez MD [Primary Care Provider] - 1-2 days Time of Disposition: 12:29
[2023-12-02 11:56] LABS: Basophils % (A) 0 %; Eosinophils # (A) 0.2 k/uL (0-0.7); Eosinophils % (A) 3 %; HCT 35.9 % (34.0-46.0); HGB 11.3 gm/dL (11.4-16.0); Lymphocytes # (A) 2.2 k/uL (1.0-4.8); Lymphocytes % (A) 25 %; MCH 28.3 pg (25.0-35.0); MCHC 31.5 g/dL (31.0-37.0); MCV 89.9 fL (80.0-100.0); Mean Platelet Volume 8.1; Monocytes # (A) 0.4 k/uL (0-1.0); Monocytes % (A) 4 %; Neutrophils # (A) 5.7 k/uL (1.3-7.7); Neutrophils % (A) 67 %; Platelet Count 282 k/uL (150-450); RBC 3.99 m/uL (3.80-5.40); RDW 14.6 % (11.5-15.5); WBC 8.5 k/uL (3.8-10.6)
[2023-12-02] MEDS: FAMOTIDINE 20 MG/2 ML VIAL IV STA (11:57)
[2023-12-02] MEDS: SODIUM CHLORIDE 0.9% 500 ML 500 ML IV ONE (11:58)
[2023-12-02 12:10] LABS: INR 0.9 (<1.2); Prothrombin Time 10.5 sec (10.0-12.5)
[2023-12-02 12:12] LABS: ALT 18 U/L (4-34); AST 22 U/L (14-36); African American GFR (CKD) >90 (>60 ml/min/1.73 sqM); Albumin 4.3 g/dL (3.5-5.0); Alkaline Phosphatase 81 U/L (38-126); Amylase 119 U/L (30-110); Anion Gap 4 mmol/L; Blood Urea Nitrogen 8 mg/dL (7-17); Calcium 9.5 mg/dL (8.4-10.2); Carbon Dioxide 26 mmol/L (22-30); Chloride 109 mmol/L (98-107); Glucose 115 mg/dL (74-99); Lipase 714 U/L (23-300); Non-African American GFR(CKD) >90 (>60 ml/min/1.73 sqM); Potassium 3.6 mmol/L (3.5-5.1); Sodium 139 mmol/L (137-145); Total Bilirubin 1.1 mg/dL (0.2-1.3)
[2023-12-02] MEDS: HYDROmorphone 0.5 MG/0.5 ML SYRINGE IVP STA (12:33)
[2023-12-02 12:37] VITALS: TEMP 98.7
[2023-12-02 15:22] VITALS: BP 136/71; PULSE 68; RESP 16
== END 2023-12-02 14:50 | disposition home or self-care (01) ==
LOC: EC 10:49
DX: K85.90 Acute pancreatitis without necrosis or infection, unspecified (principal); F12.90 Cannabis use, unspecified, uncomplicated; Z88.6 Allergy status to analgesic agent; Z88.5 Allergy status to narcotic agent
CPT/HCPCS: 36415; 80053; 82150; 83605; 83690; 85025; 85610; 85730; 99284; 96374; 96375; J3490; J1170

== ENCOUNTER 2024-06-28 01:41 | Emergency (ER) | payer OTHER ==
[2024-06-28 01:45] VITALS: RESP 18
--- NOTE | 2024-06-28 01:58 | ED ---
Abdominal Pain HPI - General Chief Complaint: Abdominal Pain Stated Complaint: ABD Pain Time Seen by Provider: 06/28/24 01:57 Source: patient, RN notes reviewed, old records reviewed Mode of arrival: ambulatory Limitations: no limitations - History of Present Illness Initial Comments: This is a 58-year-old male to the ER for evaluation. Patient presents today for evaluation of abdominal pain. Positive nausea no fevers no diarrhea MD Complaint: abdominal pain -: hour(s) Location: diffuse, periumbilical Migration to: periumbilical Severity: moderate Severity scale (1-10): 4 Quality: fullness, sharp Consistency: intermittent Improves With: nothing Worsens With: nothing Associated Symptoms: nausea, vomiting Treatments Prior to Arrival: other (0) - Related Data Home Medications Medication Instructions Recorded Confirmed Famotidine [Pepcid] 20 mg PO DAILY 09/15/19 12/02/23 amLODIPine [Norvasc] 5 mg PO DAILY 03/15/23 12/02/23 Previous Rx's Medication Instructions Recorded HYDROcodone/APAP 5-325MG [[place] 1 tab PO Q6HR PRN #12 tab 12/02/23 5-325] Ondansetron Odt [Zofran ODT] 4 mg PO Q8HR PRN #30 tab 06/28/24 traMADol HCl [Ultram] 50 mg PO Q6H PRN #20 tab 06/28/24 Allergies Allergy/AdvReac Type Severity Reaction Status Date / Time lisinopril AdvReac Severe Angioedema Verified 06/28/24 01:42 hydrocodone [From Vicodin] AdvReac Itching Verified 06/28/24 01:42 Review of Systems ROS Statement: Those systems with pertinent positive or pertinent negative responses have been documented in the HPI. ROS Other: All systems not noted in ROS Statement are negative. Past Medical History Past Medical History: GERD/Reflux, Hypertension, Musculoskeletal Disorder, Osteoarthritis (OA) Additional Past Medical History / Comment(s): borderline ANEMIA, BACK & neck PAIN, fx. left 5th toe after being stepped on, wearing boot left foot History of Any Multi-Drug Resistant Organisms: None Reported Past Surgical History: Hysterectomy Additional Past Surgical History / Comment(s): neck pain Past Anesthesia/Blood Transfusion Reactions: No Reported Reaction, Motion Sickness Past Psychological History: No Psychological Hx Reported Smoking Status: Never smoker Past Alcohol Use History: Occasional Past Drug Use History: Marijuana - Past Family History Mother Family Medical History: No Reported History General Exam Limitations: no limitations General appearance: alert, in no apparent distress Head exam: Present: atraumatic, normocephalic, normal inspection Eye exam: Present: normal appearance, PERRL, EOMI. Absent: scleral icterus, conjunctival injection, periorbital swelling ENT exam: Present: normal exam, mucous membranes moist Neck exam: Present: normal inspection. Absent: tenderness, meningismus, lymphadenopathy Respiratory exam: Present: normal lung sounds bilaterally. Absent: respiratory distress, wheezes, rales, rhonchi, stridor Cardiovascular Exam: Present: regular rate, normal rhythm, normal heart sounds. Absent: systolic murmur, diastolic murmur, rubs, gallop, clicks GI/Abdominal exam: Present: soft, normal bowel sounds. Absent: distended, tenderness, guarding, rebound, rigid Extremities exam: Present: normal inspection, full ROM, normal capillary refill. Absent: tenderness, pedal edema, joint swelling, calf tenderness Back exam: Present: normal inspection Neurological exam: Present: alert, oriented X3, CN II-XII intact Psychiatric exam: Present: normal affect, normal mood Skin exam: Present: warm, dry, intact, normal color. Absent: rash Course Vital Signs 06/28/24 06/28/24 06/28/24 01:42 02:15 05:33 Temperature 98.2 F 98.1 F Pulse Rate 80 68 70 Respiratory 18 18 18 Rate Blood Pressure 144/75 138/63 129/76 O2 Sat by Pulse 99 98 98 Oximetry - Reevaluation(s) Reevaluation #1: 06/28/24 04:09 Reviewed Reevaluation #2: 06/28/24 04:09 Patient symptoms unchanged Reevaluation #3: 06/28/24 04:09 Patient informed of results questions answered Reevaluation #4: Was pt. sent in by a medical professional or institution (, PA, PORTFOLIO ANALYST, urgent care, hospital, or intermediate...) When possible be specific @ -no Did you speak to anyone other than the patient for history (EMS, parent, family, police, friend...)? What history was obtained from this source @ -no Did you review nursing and triage notes (agree or disagree)? Why? @ -agree Are old charts reviewed (outside hosp., previous admission, EMS record, old EKG, old radiological studies, urgent care reports/EKG's, intermediate records)? Report findings @ -yes Differential Diagnosis (chest pain, altered mental status, abdominal pain women, abdominal pain men, vaginal bleeding, weakness, fever, dyspnea, syncope, headache, dizziness, GI bleed, back pain, seizure, CVA, palpatations, mental health, musculoskeletal)? @ -prior EKG interpreted by me (3pts min.). @ -no X-rays interpreted by me (1pt min.). @ -no CT interpreted by me (1pt min.). @ -yes negative for acute disease U/S interpreted by me (1pt. min.). @ -no What testing was considered but not performed or refused? (CT, X-rays, U/S, labs)? Why? @ -none What meds were considered but not given or refused? Why? @ -none Did you discuss the management of the patient with other professionals (professionals i.e. , PA, PORTFOLIO ANALYST, lab, RT, psych nurse, social media campaign manager, hub cutter, teacher, education officer, case operator)? Give summary @ -no Was smoking cessation discussed for >3mins.? @ -no Was critical care preformed (if so, how long)? @ -no Were there social determinants of health that impacted care today? How? (Homelessness, low income, unemployed, alcoholism, drug addiction, transportation, low edu. Level, literacy, decrease access to med. care, custodial, rehab)? @ -none Was there de-escalation of care discussed even if they declined (Discuss DNR or withdrawal of care, Hospice)? DNR status @ -no What co-morbidities impacted this encounter? (DM, HTN, Smoking, COPD, CAD, Cancer, CVA, ARF, Chemo, Hep., AIDS, mental health diagnosis, sleep apnea, morbid obesity)? @ -none Was patient admitted / discharged? Hospital course, mention meds given and route, prescriptions, significant lab abnormalities, going to OR and other perti nent info. @ - 58 female with severe epigastric abdominal pain pancreatitis, patient will be admitted for n.p.o. status and symptom management Admitted Undiagnosed new problem with uncertain prognosis? @ -no Drug Therapy requiring intensive monitoring for toxicity (Heparin, Nitro, Insulin, Cardizem)? @ -no Were any procedures done? @ -no Diagnosis/symptom? @ -Pancreatitis and abdominal pain nausea vomiting Acute, or Chronic, or Acute on Chronic? @ -Acute Uncomplicated (without systemic symptoms) or Complicated (systemic symptoms)? @ -Complicated Side effects of treatment? @ -no Exacerbation, Progression, or Severe Exacerbation? @ -exacerbation Poses a threat to life or bodily function? How? (Chest pain, [place], [place], pneumonia, PE, COPD, DKA, ARF, appy, cholecystitis, CVA, Diverticulitis, Homicidal, Suicidal, threat to staff... and all critical care pts) @ -yes severe pancreatitis Reevaluation #5: Differential Abdominal Pain Women: Appendicitis, Cholecystitis, diverticulosis, ischemic bowel, pancreatitis, hepatitis, UTI, gastroenteritis, AAA, incarcerated hernia, bowel obstruction, constipation, inflammatory bowel, hepatitis, peptic ulcer disease, splenic infarction, perforated viscus, vulvitis, ovarian torsion, PID, kidney stone, placenta abruption, this is not meant to be an all-inclusive list - Consultations Consultation #1: Spoke with [facility] who agrees to admit this patient Medical Decision Making - Medical Decision Making 58 female with severe epigastric abdominal pain pancreatitis, patient will be admitted for n.p.o. status and symptom management - Lab Data Result diagrams: 06/28/24 03:09 06/28/24 02:12 Lab Results 06/28/24 06/28/24 06/28/24 Range/Units 02:12 02:12 03:09 WBC 6.7 (3.8-10.6) k/uL RBC 3.67 L (3.80-5.40) m/uL Hgb 10.5 L (11.4-16.0) gm/dL Hct 32.3 L (34.0-46.0) % MCV 87.9 (80.0-100.0) fL MCH 28.6 (25.0-35.0) pg MCHC 32.5 (31.0-37.0) g/dL RDW 13.9 (11.5-15.5) % Plt Count 290 (150-450) k/uL MPV 8.1 Neutrophils % 64 % Lymphocytes % 26 % Monocytes % 5 % Eosinophils % 3 % Basophils % 0 % Neutrophils # 4.3 (1.3-7.7) k/uL Lymphocytes # 1.8 (1.0-4.8) k/uL Monocytes # 0.3 (0-1.0) k/uL Eosinophils # 0.2 (0-0.7) k/uL Basophils # 0.0 (0-0.2) k/uL Sodium 135 L (137-145) mmol/L Potassium 4.6 (3.5-5.1) mmol/L Chloride 107 (98-107) mmol/L Carbon Dioxide 17 L (22-30) mmol/L Anion Gap 11 mmol/L BUN 16 (7-17) mg/dL Creatinine 0.78 (0.52-1.04) mg/dL Est GFR (CKD-EPI)AfAm >90 (>60 ml/min/1.73 sqM) Est GFR (CKD-EPI)NonAf 84 (>60 ml/min/1.73 sqM) Glucose 177 H (74-99) mg/dL Plasma Lactic Acid [place] 1.4 (0.7-2.0) mmol/L Calcium 9.7 (8.4-10.2) mg/dL Total Bilirubin 0.8 (0.2-1.3) mg/dL AST 22 (14-36) U/L ALT 16 (4-34) U/L Alkaline Phosphatase 75 (38-126) U/L Total Protein 7.0 (6.3-8.2) g/dL Albumin 4.5 (3.5-5.0) g/dL Amylase 220 H (30-110) U/L Lipase 1404 H (23-300) U/L Urine Color Urine Appearance (Clear) Urine pH (5.0-8.0) Ur Specific [place] (1.001-1.035) Urine Protein (Negative) Urine Glucose (UA) (Negative) Urine Ketones (Negative) Urine Blood (Negative) Urine Nitrite (Negative) Urine Bilirubin (Negative) Urine Urobilinogen (<2.0) mg/dL Ur Leukocyte Esterase (Negative) 06/28/24 Range/Units 04:54 WBC (3.8-10.6) k/uL RBC (3.80-5.40) m/uL Hgb (11.4-16.0) gm/dL Hct (34.0-46.0) % MCV (80.0-100.0) fL MCH (25.0-35.0) pg MCHC (31.0-37.0) g/dL RDW (11.5-15.5) % Plt Count (150-450) k/uL MPV Neutrophils % % Lymphocytes % % Monocytes % % Eosinophils % % Basophils % % Neutrophils # (1.3-7.7) k/uL Lymphocytes # (1.0-4.8) k/uL Monocytes # (0-1.0) k/uL Eosinophils # (0-0.7) k/uL Basophils # (0-0.2) k/uL Sodium (137-145) mmol/L Potassium (3.5-5.1) mmol/L Chloride (98-107) mmol/L Carbon Dioxide (22-30) mmol/L Anion Gap mmol/L BUN (7-17) mg/dL Creatinine (0.52-1.04) mg/dL Est GFR (CKD-EPI)AfAm (>60 ml/min/1.73 sqM) Est GFR (CKD-EPI)NonAf (>60 ml/min/1.73 sqM) Glucose (74-99) mg/dL Plasma Lactic Acid [place] (0.7-2.0) mmol/L Calcium (8.4-10.2) mg/dL Total Bilirubin (0.2-1.3) mg/dL AST (14-36) U/L ALT (4-34) U/L Alkaline Phosphatase (38-126) U/L Total Protein (6.3-8.2) g/dL Albumin (3.5-5.0) g/dL Amylase (30-110) U/L Lipase (23-300) U/L Urine Color Colorless Urine Appearance Clear (Clear) Urine pH 5.5 (5.0-8.0) Ur Specific [place] 1.006 (1.001-1.035) Urine Protein Negative (Negative) Urine Glucose (UA) Negative (Negative) Urine Ketones Negative (Negative) Urine Blood Negative (Negative) Urine Nitrite Negative (Negative) Urine Bilirubin Negative (Negative) Urine Urobilinogen <2.0 (<2.0) mg/dL Ur Leukocyte Esterase Negative (Negative) - Radiology Data Radiology results: report reviewed (CT abdomen pelvis positive for pancreatic inflammation), image reviewed Disposition Clinical Impression: Pancreatitis, Abdominal pain Disposition: HOME SELF-CARE Condition: Fair Instructions (If sedation given, give patient instructions): Pancreatitis (ED) Prescriptions: traMADol HCl [Ultram] 50 mg PO Q6H PRN #20 tab PRN Reason: Pain Ondansetron Odt [Zofran ODT] 4 mg PO Q8HR PRN #30 tab PRN Reason: nausea/vomiting Is patient prescribed a controlled substance at d/c from ED?: No Referrals: Perlita Martinez MD [Primary Care Provider] - 1-2 days Time of Disposition: 05:00
[2024-06-28 02:20] VITALS: TEMP 98.1
[2024-06-28] MEDS: HYDROmorphone 0.5 MG/0.5 ML SYRINGE IVP STA (02:20)
[2024-06-28] MEDS: ONDANSETRON 4 MG/2 ML VIAL IVP STA (02:28)
[2024-06-28] MEDS: SODIUM CHLORIDE 0.9% 1,000 ML IV STA ×2 (02:34→02:36)
[2024-06-28 02:53] LABS: ALT 16 U/L (4-34); AST 22 U/L (14-36); African American GFR (CKD) >90 (>60 ml/min/1.73 sqM); Albumin 4.5 g/dL (3.5-5.0); Alkaline Phosphatase 75 U/L (38-126); Amylase 220 U/L (30-110); Anion Gap 11 mmol/L; Blood Urea Nitrogen 16 mg/dL (7-17); Calcium 9.7 mg/dL (8.4-10.2); Carbon Dioxide 17 mmol/L (22-30); Chloride 107 mmol/L (98-107); Glucose 177 mg/dL (74-99); Lipase 1404 U/L (23-300); Non-African American GFR(CKD) 84 (>60 ml/min/1.73 sqM); Sodium 135 mmol/L (137-145); Total Bilirubin 0.8 mg/dL (0.2-1.3)
[2024-06-28 03:29] LABS: Basophils % (A) 0 %; Eosinophils # (A) 0.2 k/uL (0-0.7); Eosinophils % (A) 3 %; HCT 32.3 % (34.0-46.0); HGB 10.5 gm/dL (11.4-16.0); Lymphocytes # (A) 1.8 k/uL (1.0-4.8); Lymphocytes % (A) 26 %; MCH 28.6 pg (25.0-35.0); MCHC 32.5 g/dL (31.0-37.0); MCV 87.9 fL (80.0-100.0); Mean Platelet Volume 8.1; Monocytes # (A) 0.3 k/uL (0-1.0); Monocytes % (A) 5 %; Neutrophils # (A) 4.3 k/uL (1.3-7.7); Neutrophils % (A) 64 %; Platelet Count 290 k/uL (150-450); RBC 3.67 m/uL (3.80-5.40); RDW 13.9 % (11.5-15.5); WBC 6.7 k/uL (3.8-10.6)
[2024-06-28 03:44] LABS: Potassium 4.6 mmol/L (3.5-5.1)
[2024-06-28] MEDS ORDERED: HYDROmorphone 1 MG/ML 1 ML SYRINGE IVP PRN (05:08)
[2024-06-28] MEDS ORDERED: ONDANSETRON 4 MG/2 ML VIAL IVP PRN (05:08)
[2024-06-28] MEDS ORDERED: NALOXONE 0.4 MG/ML 1 ML VIAL IV PRN (05:08)
[2024-06-28] MEDS: HYDROmorphone 1 MG/ML 1 ML SYRINGE IVP STA (05:09)
[2024-06-28] MEDS ORDERED: SODIUM CHLORIDE 0.9% 1,000 ML IV SCH (05:15)
[2024-06-28 05:35] VITALS: BP 129/76; PULSE 70
[2024-06-28] MEDS: traMADol 50 MG STARTER PACK 3 TAB BTL PO STA (05:36)
[2024-06-28] MEDS: ONDANSETRON 4 MG ODT STARTER PACK 2 TAB BTL PO STA (05:36)
[2024-06-28] MEDS: ACET/COD 300 MG/30 MG STARTER PACK 6 TAB BTL PO STA (05:36)
[2024-06-28 05:59] LABS: Appearance,Urine Clear (Clear); Bilirubin,Urine Negative (Negative); Blood,Urine Negative (Negative); Color,Urine Colorless; Glucose,Urine (UA) Negative (Negative); Ketones,Urine Negative (Negative); Leukocyte Esterase,Urine Negative (Negative); Nitrite,Urine Negative (Negative); PH, Urine 5.5 (5.0-8.0); Protein,Urine Negative (Negative); Specific Gravity,Urine 1.006 (1.001-1.035); Urobilinogen,Urine <2.0 mg/dL (<2.0)
--- NOTE | 2024-06-28 05:59 | CT ---
EXAM: CT Abdomen and Pelvis Without Intravenous Contrast CLINICAL HISTORY: ITS.REASON CT Reason: abdominal pain TECHNIQUE: Axial computed tomography images of the abdomen and pelvis without intravenous contrast. CTDI is 5.9 mGy and DLP is 334.3 mGy-cm. This CT exam was performed using one or more of the following dose reduction techniques: automated exposure control, adjustment of the mA and/or kV according to patient size, and/or use of iterative reconstruction technique. COMPARISON: No relevant prior studies available. FINDINGS: Lung bases: Unremarkable. No mass. No consolidation. ABDOMEN: Liver: The liver is enlarged with uniform decreased density consistent with attic steatosis. No evidence of attic mass. Gallbladder and bile ducts: Unremarkable. No ductal dilation. No choledocholithiasis. Pancreas: Inflammatory stranding is seen surrounding the pancreas. 3. 8 x 0.9 cm cystic appearing lesion is seen adjacent to the mid to distal body of the pancreas. A 5.5 x 6.2 cm heterogeneous isodense mass is seen in the area of the head of the pancreas. Pancreatic ductal dilatation measuring 7.9 mm. Spleen: Unremarkable. No splenomegaly. Adrenals: Unremarkable. No mass. Kidneys and ureters: Unremarkable. No obstructing stones. No hydronephrosis. Stomach and bowel: Colonic diverticulosis without evidence of acute diverticulitis. Moderate colonic stool burden. No obstruction. PELVIS: Appendix: No findings to suggest acute appendicitis. Bladder: Unremarkable. No stones. Reproductive: Unremarkable as visualized. ABDOMEN and PELVIS: Intraperitoneal space: Unremarkable. No free air. No significant fluid collection. Bones/joints: Mild degenerative changes are seen within the spine and hips. No acute fracture. No dislocation. Soft tissues: Unremarkable. Vasculature: Unremarkable. No abdominal aortic aneurysm. Lymph nodes: Unremarkable. No enlarged lymph nodes. IMPRESSION: 1. Large heterogeneous mass seen within the head of the pancreas with associated pancreatic ductal dilatation and inflammatory stranding seen surrounding the pancreas. Unclear if this represents pancreatic malignancy or sequela of prior pancreatitis. 2. Cystic lesion seen adjacent to the pancreas, unclear if this represents a cystic mass or a pseudocyst formation again from possible prior acute pancreatitis.
[2024-06-28] MEDS ORDERED: PANTOPRAZOLE 40 MG/10 ML VIAL IV SCH (09:00)
== END 2024-06-28 05:43 | disposition home or self-care (01) ==
LOC: EC 01:41
DX: K85.90 Acute pancreatitis without necrosis or infection, unspecified (principal); Z88.5 Allergy status to narcotic agent; Z88.8 Allergy status to other drugs, medicaments and biological substances
CPT/HCPCS: 36415; 80053; 82150; 83605; 83690; 85025; 81003; 74176; 99284; 96374; 96375; 96376; 96361; J2405; J1171 ×2; S0119

== ENCOUNTER 2024-10-24 14:21 | Emergency (ER) | payer OTHER ==
[2024-10-24 14:26] VITALS: TEMP 99
--- NOTE | 2024-10-24 14:40 | ED ---
General Adult HPI - General Chief complaint: Extremity Problem,Nontraumatic Stated complaint: L Arm Pain Time Seen by Provider: 10/24/24 14:29 Source: patient, RN notes reviewed, old records reviewed Mode of arrival: ambulatory Limitations: no limitations - History of Present Illness Initial comments: 59-year-old female with pain in the left upper extremity, pain has been present for the past 3 to 4 days she denies a specific trauma but states she may have overdone it. Pain was initially close to the elbow but the patient had noticed a bulge with the painful location closer to the shoulder. She states overall the pain is significantly improved. No chest pain. No dyspnea. No vomiting. - Related Data Home Medications Medication Instructions Recorded Confirmed Famotidine [Pepcid] 20 mg PO DAILY 09/15/19 12/02/23 amLODIPine [Norvasc] 5 mg PO DAILY 03/15/23 12/02/23 Previous Rx's Medication Instructions Recorded HYDROcodone/APAP 5-325MG [[place] 1 tab PO Q6HR PRN #12 tab 12/02/23 5-325] Ondansetron Odt [Zofran ODT] 4 mg PO Q8HR PRN #30 tab 06/28/24 traMADol HCl [Ultram] 50 mg PO Q6H PRN #20 tab 06/28/24 Allergies Allergy/AdvReac Type Severity Reaction Status Date / Time lisinopril AdvReac Severe Angioedema Verified 10/24/24 14:26 hydrocodone [From Vicodin] AdvReac Itching Verified 10/24/24 14:26 Review of Systems ROS Statement: Those systems with pertinent positive or pertinent negative responses have been documented in the HPI. ROS Other: All systems not noted in ROS Statement are negative. Past Medical History Past Medical History: GERD/Reflux, Hypertension, Musculoskeletal Disorder, Osteoarthritis (OA) Additional Past Medical History / Comment(s): borderline ANEMIA, BACK & neck PAIN, fx. left 5th toe after being stepped on, wearing boot left foot History of Any Multi-Drug Resistant Organisms: None Reported Past Surgical History: Hysterectomy Additional Past Surgical History / Comment(s): neck pain Past Anesthesia/Blood Transfusion Reactions: No Reported Reaction, Motion Sickness Past Psychological History: No Psychological Hx Reported Smoking Status: Never smoker Past Alcohol Use History: Occasional Past Drug Use History: Marijuana - Past Family History Mother Family Medical History: No Reported History General Exam Limitations: no limitations General appearance: alert, in no apparent distress Head exam: Present: atraumatic, normocephalic Eye exam: Present: normal appearance, PERRL ENT exam: Present: normal exam Neck exam: Present: normal inspection. Absent: tenderness, meningismus Respiratory exam: Present: normal lung sounds bilaterally. Absent: respiratory distress, wheezes Cardiovascular Exam: Present: regular rate, normal rhythm GI/Abdominal exam: Present: soft. Absent: distended, tenderness, guarding Extremities exam: Present: normal inspection, tenderness (Proximal humerus anterior surface no skin changes, no palpable mass, range of motion at the shoulder and elbow within normal limits, distal pulses intact.) Course Vital Signs 10/24/24 14:23 Temperature 99.0 F Pulse Rate 77 Respiratory 15 Rate Blood Pressure 130/78 O2 Sat by Pulse 98 Oximetry Medical Decision Making - Medical Decision Making Was pt. sent in by a medical professional or institution (, PA, BOTTOM MAN, urgent care, hospital, or detention...) When possible be specific @ -No Did you speak to anyone other than the patient for history (EMS, parent, family, police, friend...)? What history was obtained from this source @ -No Did you review nursing and triage notes (agree or disagree)? Why? @ -I reviewed and agree with nursing and triage notes Were old charts reviewed (outside hosp., previous admission, EMS record, old E KG, old radiological studies, urgent care reports/EKG's, detention records)? Report findings @ -No old charts were reviewed Differential Musculoskeletal Muscular strain, contusion, ligament sprain, fracture, arthritis, septic arthritis, bursitis, cellulitis, muscle spasm, nerve compression, DVT, arterial occlusion, herpes zoster, electrolyte abnormality, tumor.... This is not meant to be in all inclusive list EKG interpreted by me (3pts min.). @ -As above X-rays interpreted by me (1pt min.). @ -[X-ray negative for acute process of the shoulder CT interpreted by me (1pt min.). @ -None done U/S interpreted by me (1pt. min.). @ -None done What testing was considered but not performed or refused? (CT, X-rays, U/S, labs)? Why? @ -None What meds were considered but not given or refused? Why? @ -None Did you discuss the management of the patient with other professionals (professionals i.e. , PA, BOTTOM MAN, lab, RT, psych nurse, social service technician, contact lens edge buffer, teacher, chief juvenile probation officer, dependency case manager)? Give summary @ -No Was smoking cessation discussed for >3mins.? @ -No Was critical care preformed (if so, how long)? @ -No Were there social determinants of health that impacted care today? How? (Homelessness, low income, unemployed, alcoholism, drug addiction, transportation, low edu. Level, literacy, decrease access to med. care, skilled nursing, rehab)? @ -No Was there de-escalation of care discussed even if they declined (Discuss DNR or withdrawal of care, Hospice)? DNR status @ -No What co-morbidities impacted this encounter? (DM, HTN, Smoking, COPD, CAD, Cancer, CVA, ARF, Chemo, Hep., AIDS, mental health diagnosis, sleep apnea, morbid obesity)? @ -None Was patient admitted / discharged? Hospital course, mention meds given and route, prescriptions, significant lab abnormalities, going to OR and other pertinent info. @ -59-year-old female with point tenderness over the proximal shoulder, exam otherwise unremarkable, x-rays negative for acute process. Patient stable for discharge with return parameters and close outpatient follow-up. Undiagnosed new problem with uncertain prognosis? @ -No Drug Therapy requiring intensive monitoring for toxicity (Heparin, Nitro, Insulin, Cardizem)? @ -No Were any procedures done? @ -No Diagnosis/symptom? @Shoulder pain Acute, or Chronic, or Acute on Chronic? @ -Acute Uncomplicated (without systemic symptoms) or Complicated (systemic symptoms)? @ -Default Side effects of treatment? @ -No Exacerbation, Progression, or Severe Exacerbation? @ -No Poses a threat to life or bodily function? How? (Chest pain, [place], [place], pneumonia, PE, COPD, DKA, ARF, appy, cholecystitis, CVA, Diverticulitis, Homicidal, Suicidal, threat to staff... and all critical care pts) @ -No Disposition Clinical Impression: Shoulder pain, acute Disposition: HOME SELF-CARE Condition: Fair Instructions (If sedation given, give patient instructions): Shoulder Pain (ED) Is patient prescribed a controlled substance at d/c from ED?: No Referrals: Perlita Martinez MD [Primary Care Provider] - 1-2 days Time of Disposition: 15:11
--- NOTE | 2024-10-24 15:05 | XR ---
EXAMINATION TYPE: XR shoulder complete LT DATE OF EXAM: 10/24/2024 2:46 PM COMPARISON: None CLINICAL INDICATION: Female, 59 years old with history of pain; PHH, pain TECHNIQUE: XR shoulder complete LT; examined in AP, internally rotated and scapular Y projections. FINDINGS: No evidence of acute osseous pathology, joint dislocation, or soft tissue swelling. The remaining po rtions of the visualized chest are unremarkable. Mild degeneration changes of the acromion and dista l clavicle. IMPRESSION: 1. No acute osseous pathology. 2. Mild shoulder osteoarthrosis. [facility], , 10/24/2024 3:02 PM
[2024-10-24 15:27] VITALS: BP 164/80; PULSE 82; RESP 12
== END 2024-10-24 15:27 | disposition home or self-care (01) ==
LOC: EC 14:21
DX: M25.512 Pain in left shoulder (principal); Z88.5 Allergy status to narcotic agent; Z88.8 Allergy status to other drugs, medicaments and biological substances
CPT/HCPCS: 99283

== ENCOUNTER 2024-12-22 17:50 | Emergency (ER) | payer OTHER ==
[2024-12-22 17:54] VITALS: TEMP 98
--- NOTE | 2024-12-22 18:21 | ED ---
Chest Pain HPI - General Source: patient, RN notes reviewed, old records reviewed Mode of arrival: ambulatory Limitations: no limitations <Jose Mendoza - Last Filed: 12/22/24 20:55> <Adama Post - Last Filed: 12/22/24 23:52> - General Chief Complaint: Chest Pain Stated Complaint: left sided chest pain Time Seen by Provider: 12/22/24 17:53 - History of Present Illness Initial Comments: 59-year-old female presenting with complaints of left-sided chest pain. States the chest pain has been ongoing for 1 month, it has been on and off sharp and dull pain. States she does not notice it getting worse on exertion per se but has felt it during exertion as well as at rest. States currently the chest pain is about a 3-4 out of 10 at its worst it can be a 7 or 8. Denies radiation of the pain, states she has some left arm pain but believes this is separate and does not feel the chest pain go into the arm or the neck or the back. Denies shortness of breath during the chest pain episodes, but reports she has noticed some palpitations. Reports she was at the PCP earlier describing the symptoms and the PCP recommended she come to the ER for further evaluation. (Jose Mendoza) - Related Data Home Medications Medication Instructions Recorded Confirmed Famotidine [Pepcid] 20 mg PO DAILY 09/15/19 12/02/23 amLODIPine [Norvasc] 5 mg PO DAILY 03/15/23 12/02/23 Previous Rx's Medication Instructions Recorded HYDROcodone/APAP 5-325MG [[place] 1 tab PO Q6HR PRN #12 tab 12/02/23 5-325] Ondansetron Odt [Zofran ODT] 4 mg PO Q8HR PRN #30 tab 06/28/24 traMADol HCl [Ultram] 50 mg PO Q6H PRN #20 tab 06/28/24 Allergies Allergy/AdvReac Type Severity Reaction Status Date / Time lisinopril AdvReac Severe Angioedema Verified 12/22/24 17:54 hydrocodone [From Vicodin] AdvReac Itching Verified 12/22/24 17:54 Review of Systems ROS Other: All systems not noted in ROS Statement are negative. <Jose Mendoza - Last Filed: 12/22/24 20:55> ROS Other: All systems not noted in ROS Statement are negative. <Adama Post - Last Filed: 12/22/24 23:52> ROS Statement: Those systems with pertinent positive or pertinent negative responses have been documented in the HPI. EKG Findings - EKG Comments: EKG Findings:: 12-lead Electrocardiogram Interpretation Note. EKG was reviewed and interpreted by myself. 12-lead ECG performed at 1758 is interpreted by me as revealing normal sinus rhythm at a rate of 68 beats per minute. [place] is normal. SD interval is 169 ms, QRS duration is 87 ms, QTc is 414 ms. There were no ST or T wave abnormalities to suggest myocardial ischemia or injury. R wave progression across the precordium was satisfactory. By my interpretation this EKG is non-diagnostic for acute ischemia. - EKG Results: EKG: interpreted by ERMD <Adama Post - Last Filed: 12/22/24 23:52> Past Medical History Past Medical History: GERD/Reflux, Hypertension, Musculoskeletal Disorder, Osteoarthritis (OA) Additional Past Medical History / Comment(s): borderline ANEMIA, BACK & neck PAIN, fx. left 5th toe after being stepped on, wearing boot left foot History of Any Multi-Drug Resistant Organisms: None Reported Past Surgical History: Hysterectomy Additional Past Surgical History / Comment(s): neck pain Past Anesthesia/Blood Transfusion Reactions: No Reported Reaction, Motion Sickness Past Psychological History: No Psychological Hx Reported Smoking Status: Never smoker Past Alcohol Use History: None Reported Past Drug Use History: None Reported - Past Family History Mother Family Medical History: No Reported History <Jose Mendoza - Last Filed: 12/22/24 20:55> General Exam Limitations: no limitations <Jose Mendoza - Last Filed: 12/22/24 20:55> - General Exam Comments Initial Comments: GENERAL: In no apparent distress at the time of examination. Pleasant and cooperative. HEENT: Head is atraumatic, normocephalic. Pupils are equal, round, and reactive to light. Sclerae anicteric. Conjunctivae are clear. Mucus membranes of the mouth are moist. Neck is supple. RESPIRATORY: Clear to auscultation. No wheezes, rales, or rhonchi. No use of accessory muscles. Patient maintaining oxygen saturation greater than 92%. No chest wall tenderness is noted on palpation or with deep breathing. CARDIOVASCULAR: Regular rate and rhythm. S1 and S2 noted. No systolic or diastolic murmur auscultated. No JVD noted. No S3 or S4 noted. GASTROINTESTINAL: No distention noted. Abdomen soft and round. Normal active bowel sounds auscultated x 4 quadrants. No pain or tenderness noted upon palpation. INTEGUMENTARY: No cyanosis. No jaundice. No rashes noted. No cellulitis noted. EXTREMITIES: 2+ peripheral pulses. No evidence of peripheral edema. No calf tend erness noted. PSYCHIATRIC: Awake, alert, and oriented X 3. Appropriate affect. Intact judgement and insight. (Jose Mendoza) Course Vital Signs 12/22/24 12/22/24 17:51 21:20 Temperature 98.0 F Pulse Rate 75 90 Respiratory 16 15 Rate Blood Pressure 193/71 177/86 O2 Sat by Pulse 99 Oximetry Chest Pain MDM <Jose Mendoza - Last Filed: 12/22/24 20:55> <Adama Post - Last Filed: 12/22/24 23:52> - MDM Was pt. sent in by a medical professional or institution ([facility], [employer], urgent care, hospital, or alf...) When possible be specific @ -Yes by her PCP. Did you speak to anyone other than the patient for history (EMS, parent, family, police, friend...)? What history was obtained from this source @ -No Did you review nursing and triage notes (agree or disagree)? Why? @ -I reviewed and agree with nursing and triage notes Were old charts reviewed (outside hosp., previous admission, EMS record, old EKG, old radiological studies, urgent care reports/EKG's, alf records)? Report findings @ -No old charts were reviewed Differential Diagnosis? @ -Differential Chest Pain: Stable Angina, Unstable Angina, STEMI, NSTEMI Aortic Dissection, Pneumothorax, Musculoskeletal, Esophageal Spasm GERD, Cholecystitis, Pancreatitis, Zoster, this is not meant to be an all-inclusive list. EKG interpreted by me (3pts min.). @ -Normal sinus rhythm interpreted by me, no signs of ST elevation or T wave inversion X-rays interpreted by me (1pt min.). @ -No acute cardiopulmonary process appreciated CT interpreted by me (1pt min.). @ -None done U/S interpreted by me (1pt. min.). @ -None done What testing was considered but not performed or refused? (CT, X-rays, U/S, labs)? Why? @ -None What meds were considered but not given or refused? Why? @ -None Did you discuss the management of the patient with other professionals (professionals i.e. , PA, [employer], lab, RT, psych nurse, clinical social work aide, plumbing service technician, teacher, seaman officer, transplant case manager)? Give summary @ -No Was smoking cessation discussed for >3mins.? @ -No Was critical care preformed (if so, how long)? @ -No Were there social determinants of health that impacted care today? How? (Homelessness, low income, unemployed, alcoholism, drug addiction, transportation, low edu. Level, literacy, decrease access to med. care, skilled nursing, rehab)? @ -No Was there de-escalation of care discussed even if they declined (Discuss DNR or withdrawal of care, Hospice)? DNR status @ -No What co-morbidities impacted this encounter? (DM, HTN, Smoking, COPD, CAD, Cancer, CVA, ARF, Chemo, Hep., AIDS, mental health diagnosis, sleep apnea, morbid obesity)? @ -None Was patient admitted / discharged? Hospital course, mention meds given and route, prescriptions, significant lab abnormalities, going to OR and other pertinent info. @ -Discharged, this is a 59-year-old female presents with left-sided chest pain on and off for the last month. Patient underwent EKG which was then within normal limits, chest x-ray which showed no acute cardiopulmonary process, and labs including troponin which was all negative. During the patient's ER stay her chest pain seemed to dissipate. At this time felt comfortable discharging the patient. Recommended the patient to follow-up with their PCP in 1 to 2 days. Undiagnosed new problem with uncertain prognosis? @ -No Drug Therapy requiring intensive monitoring for toxicity (Heparin, Nitro, Insulin, Cardizem)? @ -No Were any procedures done? @ -No Diagnosis/symptom? @ -Chest pain Acute, or Chronic, or Acute on Chronic? @ -Default Uncomplicated (without systemic symptoms) or Complicated (systemic symptoms)? @ -Default Side effects of treatment? @ -No Exacerbation, Progression, or Severe Exacerbation? @ -No Poses a threat to life or bodily function? How? (Chest pain, [place], CT, pneumonia, PE, COPD, DKA, ARF, appy, cholecystitis, CVA, Diverticulitis, Homicidal, Suicidal, threat to staff... and all critical care pts) @ -No (Jose Mendoza) I personally saw the patient and performed the critical portion of the service. I discussed the patient care with the resident. I directed management, care planning and final disposition of the patient. This includes, but not limited to, review of all lab work, radiological studies, EKG's, consultations, vital signs, and nursing notes. EKG interpreted by me (3pts min.) @As above X-Rays interpreted by me (1 pt min.) @Chest x-ray shows no obvious acute cardiopulmonary process CT interpreted by me ( 1pt min.) @None U/S interpreted by me (1 pt min.) @None (Adama Post) Disposition Is patient prescribed a controlled substance at d/c from ED?: No <Jose Mendoza - Last Filed: 12/22/24 20:55> Is patient prescribed a controlled substance at d/c from ED?: No Time of Disposition: 21:20 <Adama Post - Last Filed: 12/22/24 23:52> Clinical Impression: Chest pain Disposition: HOME SELF-CARE Instructions (If sedation given, give patient instructions): Chest Pain (ED) Referrals: Perlita Martinez MD [Primary Care Provider] - 1-2 days
--- NOTE | 2024-12-22 19:26 | XR ---
EXAMINATION TYPE: XR chest 2V DATE OF EXAM: 12/22/2024 7:22 PM COMPARISON: Chest radiographs from 02/15/2023, CTA chest 02/15/2023 TECHNIQUE: XR chest 2V Frontal and lateral views of the chest. CLINICAL INDICATION:Female, 59 years old with history of Chest Pain; FINDINGS: Lungs/Pleura: There is no evidence of pleural effusion, focal consolidation, or pneumothorax. Pulmonary vascularity: Unremarkable. Heart/mediastinum: Cardiomediastinal silhouette is unremarkable. Musculoskeletal: No acute osseous pathology. IMPRESSION: No acute cardiopulmonary disease/process. [facility], , 12/22/2024 7:24 PM
[2024-12-22 19:56] LABS: Basophils # (A) 0.04 10*3/uL (0.00-0.10); Basophils % (A) 0.6 %; Eosinophils # (A) 0.06 10*3/uL (0.04-0.35); HCT 33.1 % (37.2-46.3); HGB 10.6 g/dL (12.0-15.0); Lymphocytes # (A) 2.22 10*3/uL (0.90-5.00); Lymphocytes % (A) 35.9 %; MCH 28.2 pg (27.0-32.0); Mean Platelet Volume 10.1 fL (9.5-12.2); Monocytes # (A) 0.44 10*3/uL (0.20-1.00); Monocytes % (A) 7.1 %; Neutrophils # (A) 3.41 10*3/uL (1.80-7.70); Neutrophils % (A) 55.2 %; Platelet Count 302 10*3/uL (140-440); RBC 3.76 10*6/uL (4.10-5.20); RDW 14.7 % (11.5-14.5); WBC 6.18 10*3/uL (4.50-10.00)
[2024-12-22 20:06] LABS: Partial Thromboplastin Time 22.1 sec (22.0-30.0); Prothrombin Time 10.8 sec (10.0-12.5)
[2024-12-22 20:15] LABS: ALT 14 U/L (4-34); AST 25 U/L (14-36); African American GFR (CKD) >90 (>60 ml/min/1.73 sqM); Albumin 4.5 g/dL (3.5-5.0); Alkaline Phosphatase 63 U/L (38-126); Anion Gap 9 mmol/L; Blood Urea Nitrogen 16 mg/dL (7-17); Calcium 9.8 mg/dL (8.4-10.2); Carbon Dioxide 22 mmol/L (22-30); Chloride 106 mmol/L (98-107); Glucose 198 mg/dL (74-99); Non-African American GFR(CKD) 89 (>60 ml/min/1.73 sqM); Potassium 4.2 mmol/L (3.5-5.1); Sodium 137 mmol/L (137-145); Total Bilirubin 0.5 mg/dL (0.2-1.3)
[2024-12-23 01:05] VITALS: BP 177/86; PULSE 90; RESP 15
== END 2024-12-22 21:19 | disposition home or self-care (01) ==
LOC: EC 17:50
DX: R07.89 Other chest pain (principal); Z88.5 Allergy status to narcotic agent; Z88.8 Allergy status to other drugs, medicaments and biological substances
CPT/HCPCS: 36415; 71046; 80053; 83735; 84484; 85025; 85610; 85730; 99285